=== PATIENT | female | born 1955 | race Caucasian/White ===

== ENCOUNTER 2023-05-01 11:17 | Inpatient (IN) ==
[2023-05-01 13:05] VITALS: BMI 31.4
[2023-05-01] MEDS ORDERED: REFLEX: PROVENTIL NEB & PulmiCORT NEB~ NEB SCH (14:15)
[2023-05-01] MEDS: LOVENOX INJ 80 MG SYR SC SCH (15:21)
[2023-05-01 15:57] LABS: BASOPHILS # (AUTO) 0.1 X10^3/uL (0.0-0.1); BASOPHILS % (AUTO) 0.9 % (0.2-1.0); EOSINOPHILS # (AUTO) 0.2 x10^3/uL (0.0-0.2); EOSINOPHILS % (AUTO) 1.5 % (0.9-2.9); HEMATOCRIT 34.9 % (36.0-47.0); HEMOGLOBIN 11.4 g/dL (12.0-16.0); LYMPHOCYTES # (AUTO) 1.5 X10^3/uL (1.3-2.9); LYMPHOCYTES % (AUTO) 11.2 % (21.0-51.0); MEAN CORPUSCULAR HGB CONC 32.6 g/dL (33.0-35.0); MEAN CORPUSCULAR VOLUME 95.1 fL (80.0-100.0); MEAN PLATELET VOLUME 8.1 fL (7.4-11.0); MONOCYTES # (AUTO) 0.9 x10^3/uL (0.3-0.8); MONOCYTES % (AUTO) 6.4 % (0.0-13.0); NEUTROPHILS # (AUTO) 10.8 x10^3/uL (2.2-4.8); PLATELET COUNT 243 X10^3/uL (150.0-450.0); RED BLOOD COUNT 3.67 X10^6/uL (3.5-5.4); WHITE BLOOD COUNT 13.5 X10^3/uL (3.6-10.0)
[2023-05-01 16:14] LABS: ALBUMIN 3.1 g/dL (3.4-5.0); CALCIUM 9.6 mg/dL (8.5-10.1); CARBON DIOXIDE 26.3 mmol/L (21-32); COR CA(FOR HYPOALB) 10.3 mg/dL (8.5-10.1); CREATININE 1.74 mg/dL (0.55-1.02); TOTAL PROTEIN 8.3 g/dL (6.4-8.2)
[2023-05-01 16:19] LABS: POTASSIUM 5.2 mmol/L (3.5-5.1)
[2023-05-01] MEDS: LR 1,000 ML IV 1,000 ML IV SCH (16:55)
[2023-05-01] MEDS ORDERED: NS 250 ML IV 250 ML IV ONE (17:41)
[2023-05-01] MEDS: ZOSYN VIAL 3.375 GRAMS 3.375 G in NS 100 ML IV 100 ML IV SCH (17:56)
[2023-05-01] MEDS: NS 250 ML IV 250 ML IV PRN (17:57)
[2023-05-01] MEDS: DILAUDID INJ IVP PRN (18:27)
[2023-05-01] MEDS: PROVENTIL NEB TX 0.083% 2.5MG/ 3ML NEB SCH (20:55)
[2023-05-01] MEDS: PULMICORT NEB TX 0.5 MG NEB SCH (20:55)
[2023-05-01] MEDS: EXELON PO SCH (21:16)
[2023-05-01] MEDS: TUMS PO SCH (21:16)
[2023-05-01] MEDS: CYMBALTA PO SCH (21:17)
[2023-05-01] MEDS: COLACE CAP 100 MG PO SCH (21:17)
[2023-05-01] MEDS: ROBAXIN PO SCH (21:17)
[2023-05-01] MEDS: LOPRESSOR TAB 25 MG PO SCH (21:17)
[2023-05-01] MEDS: NovoLIN R (or HumuLIN R) SC PRN (21:26)
[2023-05-02] MEDS: HIBICLENS WASH EXT ONE (00:47)
[2023-05-02] MEDS ORDERED: BUTT CREAM (COMPOUND) ONE (04:29)
[2023-05-02] MEDS: BUTT CREAM (COMPOUND) TOP PRN (05:29)
--- NOTE | 2023-05-02 06:24 | NOTE.SOAP ---
Soap Note Note for Day of Date of Exam: 05/02/23 Subjective Data Subjective Data: 67 year old female well known to our services for critical limb ischemia and history of gangrene to the right foot. Presents to the hospital with a painful 3rd digit to the left foot now that is black with redness going up her leg. Dr. Villar plans to take patient to the OR for intervention today. Patient was in and out of sleep and was not answering my questions. Objective Data Objective Data: Dry gangrene to the left 3rd digit with erythema streaking from the 3rd toe up proximally. No malodor, pus or drainage noted Foot is cold, no pulses appreciates Gross epicritc and protective sensation intact Assessment Assessment: 67 year old female with critical limb ischemia with gangrene of the left 3rd toe Plan Plan: I tried to explain plan to patient but she kept falling back asleep, will come back to try to explain to patient once again. The plan is to take patient to the operating room on monday for a toe amputation of the left third digit. If the toe appears infected, there is a chance the incision will be left opened and patient must come back to the OR later this week for a delayed primary closure. That will be an intraoperative decisions. Labs and vitals reviewed. Patient on IV antibiotics. Vascular recs per Dr. Villar appreciated. Patient will be NPO after midnight tonight for toe amputation tomorrow pending OR availabilities.
[2023-05-02] MEDS: LOVENOX INJ 30 MG SYR SC SCH (08:32)
[2023-05-02] MEDS: DETROL LA 2 MG CAP EXT REL PO SCH (09:45)
[2023-05-02] MEDS: LIPITOR TAB 40 MG PO SCH (09:45)
[2023-05-02] MEDS: ZyPREXA TAB 5 MG PO SCH (09:45)
[2023-05-02] MEDS: ASPIRIN EC 81 MG PO SCH (09:45)
[2023-05-02] MEDS: VITAMIN D3 25 mcg (1,000 UNITS) PO SCH (09:45)
[2023-05-02] MEDS: ZESTRIL TAB 5 MG PO SCH (11:29)
[2023-05-02] MEDS: NS 1,000 ML IV 1,000 ML ONE ×2 (13:36→15:17)
[2023-05-02] MEDS: ANCEF VIAL 1 GRAM ONE (13:46)
[2023-05-02] MEDS: NS 100 ML IV 100 ML ONE (13:46)
[2023-05-02] MEDS: DIPRIVAN VIAL 20 ML ONE ×2 (13:55→15:20)
[2023-05-02] MEDS: VERSED ONE (13:55)
[2023-05-02] MEDS: FENTANYL VIAL INJ 100 mcg ONE ×2 (13:55→15:07)
[2023-05-02] MEDS: VISIPAQUE 100 ML ONE (14:16)
[2023-05-02] MEDS: MARCAINE 0.5% ONE (14:16)
[2023-05-02] MEDS: VISIPAQUE 50 ML ONE (14:16)
[2023-05-02] MEDS: HEPARIN SODIUM IN D5W 75,000 UNITS/1,500 ML BAG ONE (14:16)
[2023-05-02] MEDS: HEPARIN SODIUM INJ 5000 UNITS ONE ×2 (14:21→15:22)
[2023-05-02] MEDS: EPHEDRINE SULFATE INJ ONE (14:27)
[2023-05-02 14:33] LABS: BILIRUBIN,URINE NEGATIVE (NEGATIVE); BLOOD/HEMOGLOBIN,URINE 2+ (NEGATIVE); GLUCOSE, URINE 4+ (NEGATIVE); KETONES,URINE NEGATIVE (NEGATIVE); LEUKOCYTE ESTERASE ,URINE 3+ (NEGATIVE); NITRITES,URINE NEGATIVE (NEGATIVE); PH,URINE 6.5 (5.0 - 8.0); PROTEIN,URINE 2+ (NEGATIVE); UROBILINOGEN,URINE NORMAL (NORMAL)
[2023-05-02 14:42] LABS: APPEARANCE,URINE HAZY (CLEAR); BACTERIA,URINE NEGATIVE /HPF (NEGATIVE); COLOR,URINE YELLOW (YELLOW); RBC,URINE 0-2 /HPF (0-3); SQUAMOUS EPITHELIAL CELL,UR RARE /HPF (NEGATIVE)
[2023-05-02] MEDS: TORADOL 30 MG VIAL ONE (14:45)
[2023-05-02] MEDS: NEO-SYNEPHRINE INJ ONE (14:57)
--- NOTE | 2023-05-02 16:45 | OR.IMMED ---
IMMEDIATE POST-OP NOTE Immediate Post-Op Note Date of surgery/procedure: 05/02/23 Pre-Op Diagnosis: Critical ischemia left leg with gangrene left 3rd toe and cellulitis dorsum of the left foot. Post-Op Diagnosis: same Procedure: Aortogram, arteriogram left leg , angioplasty left tibial peroneal trunk ,atherectomy and drug coated stent placement of the entire left superficial femoral artery , required distal approach from the ankle via the left posterior tibial artery Description of Procedure: see dictation Surgeon/Seismic Plotter: Jian Findings: disease distal aorta versus disease inside of aortic endograft, complete occlusion of the entire left superficial femoral artery beginning at its takeoff with reconstitution at the adductor canal, severe disease, near total occlusion of the tibial peroneal trunk, calcified runoff vessels via the left anterior tibial and left posterior tibial arteries , Estimated Blood Loss: 200cc Complications: none Progress Notes: patient returned to the floor, begin diabetic diet, continue IV antibiotics, Dr Diaz is planning amputation of the left third toe tomorrow
[2023-05-02] MEDS ORDERED: ATIVAN INJ 2 MG VIAL ONE (18:13)
[2023-05-02] MEDS: ATIVAN INJ 2 MG VIAL IVP ONE ×2 (18:16→18:20)
[2023-05-02] MEDS: VALIUM INJ ONE (19:37)
[2023-05-03] MEDS: ATIVAN INJ 2 MG VIAL IVP PRN (02:25)
[2023-05-03] MEDS: HIBICLENS WASH EXT ONE (03:06)
[2023-05-03 05:43] LABS: BASOPHILS % (AUTO) 0.6 % (0.2-1.0); EOSINOPHILS # (AUTO) 0.2 x10^3/uL (0.0-0.2); EOSINOPHILS % (AUTO) 3.4 % (0.9-2.9); HEMATOCRIT 28.3 % (36.0-47.0); HEMOGLOBIN 9.2 g/dL (12.0-16.0); LYMPHOCYTES # (AUTO) 0.9 X10^3/uL (1.3-2.9); LYMPHOCYTES % (AUTO) 13.2 % (21.0-51.0); MEAN CORPUSCULAR HEMOGLOBIN 31.1 pg (27.0-34.0); MEAN CORPUSCULAR HGB CONC 32.3 g/dL (33.0-35.0); MEAN CORPUSCULAR VOLUME 96.2 fL (80.0-100.0); MEAN PLATELET VOLUME 8.2 fL (7.4-11.0); MONOCYTES # (AUTO) 0.7 x10^3/uL (0.3-0.8); NEUTROPHILS # (AUTO) 5.2 x10^3/uL (2.2-4.8); NEUTROPHILS % (AUTO) 72.8 % (42.0-75.0); PLATELET COUNT 214 X10^3/uL (150.0-450.0); RED BLOOD COUNT 2.94 X10^6/uL (3.5-5.4); RED CELL DISTRIBUTION WIDTH 19.8 % (11.6-16.5); WHITE BLOOD COUNT 7.1 X10^3/uL (3.6-10.0)
[2023-05-03 05:48] LABS: ALBUMIN 2.5 g/dL (3.4-5.0); CALCIUM 8.4 mg/dL (8.5-10.1); CARBON DIOXIDE 25.4 mmol/L (21-32); COR CA(FOR HYPOALB) 9.6 mg/dL (8.5-10.1); CREATININE 1.95 mg/dL (0.55-1.02); POTASSIUM 4.8 mmol/L (3.5-5.1); TOTAL PROTEIN 7.3 g/dL (6.4-8.2)
[2023-05-03] MEDS: NS 100 ML IV 100 ML ONE (09:18)
[2023-05-03] MEDS: ANCEF VIAL 1 GRAM ONE (09:18)
[2023-05-03] MEDS: NS 1,000 ML IV 1,000 ML ONE (09:40)
[2023-05-03] MEDS: BETADINE SOLN ONE (09:43)
[2023-05-03] MEDS: DIPRIVAN VIAL 20 ML ONE (09:43)
[2023-05-03] MEDS: XYLOCAINE 1% and EPINEPHRINE 1:100,000 ONE (09:48)
[2023-05-03] MEDS: LOVENOX INJ 30 MG SYR SC SCH (10:03)
--- NOTE | 2023-05-04 01:36 | NOTE.SOAP ---
Soap Note Note for Day of Date of Exam: 05/03/23 Subjective Data Subjective Data: After re-vascularization of the left leg she was combative, treated with IV Ativan. For amputation of left 3rd toe today carried out by Dr. Diaz Objective Data Temperature: 98.0 F Pulse Rate: 81 Respiratory Rate: 22 Blood Pressure: 125/58 O2 Sat by Pulse Oximetry: 98 Objective Data: Left foot warm, no rest pain. Needle stick let ankle and right groin without bleeding Assessment Assessment: Critical mischemia left leg and gangrene left 3rd toe. Plan Plan: Continue Lovenox . Will plan discharge to SNF tomorrow and will transition to PO Xarelto and aspirin.
--- NOTE | 2023-05-04 06:16 | NOTE.SOAP ---
Soap Note Note for Day of Date of Exam: 05/04/23 Subjective Data Subjective Data: Patient resting comfortably this morning, s/p L 3rd digit amputation. She was combative yesterday, did not want to disturb. Objective Data Objective Data: Dressings c/d/i without strikethrough Assessment Assessment: 67 F who had gangrene of the left third toe, underwent an amputation of the toe (DOS: 05/04/23) Plan Plan: Patient resting this am, okay for WBAT in a surgical shoe. Do not remove d ressings. She is okay for discharge from a podiatry standpoint. On IV abx and will be discharged with Doxy 100. She is to follow up with Dr. Diaz in his office within one week of discharge or sooner if any problems arise
--- NOTE | 2023-05-04 07:42 | DR.H&P ---
H&P History & Physical for Day of: H&P Date: 05/02/23 Chief Complaint Chief Complaint: Rest pain left foot and gangrene of the left 3rd toe Allergies Allergies Allergy/AdvReac Type Severity Reaction Status Date / Time No Known Allergies Allergy Verified 04/10/23 15:43 History of Present Illness History of Present Illness: This patient is a 67 year old female, currently [facility] who presented several weeks ago with a gangrenous right second toe. She was admitted and placed on IV antibiotics and a Heparin drip. CT angiogram was not obtained because of her increase in her creatinine .She was taken to the operating suite where an on table arteriogram was carried out and she underwent atherectomy and Drug coated balloon angiopla sty of the right superficial femoral artery and popliteal artery .She subsequently had amputation of the right second toe and did well .She presented to my office on April 30 with gangrenous changes of the left third toe. She will require admission and intervention of this leg as well and amputation of the left third toe after the arterial intervention . 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, mild ), Depression and Diabetes Past Surgical History Surgical History: Abdominal Surgery and Cholecystectomy Family History Family Medical History: Diabetes Mellitus Social History Does patient currently use any type of tobacco product: No Have you used tobacco products in the last 12 months: No Type of Tobacco Use: None Does any household member use tobacco: No Alcohol Use: None Drug Use: None Medications Home Medications: Home Medications Medication Instructions Recorded Confirmed Type aspirin 81 mg chewable tablet 81 mg PO QDAY 04/10/23 05/01/23 History atorvastatin 40 mg tablet 40 mg PO HS 04/10/23 05/01/23 History calcium carbonate 600 mg calcium 600 mg PO BID 04/10/23 05/01/23 History (1,500 mg) tablet clopidogrel 75 mg tablet 75 mg PO QDAY 04/10/23 05/01/23 History diphenhydramine HCl 25 mg capsule 25 mg PO TID PRN 04/10/23 05/01/23 History docusate sodium 100 mg capsule 100 mg PO BID 04/10/23 05/01/23 History (Colace) duloxetine 30 mg capsule,delayed 30 mg PO BID 04/10/23 05/01/23 History release empagliflozin 25 mg tablet 25 mg PO QDAY 04/10/23 05/01/23 History (Jardiance) fluticasone 250 mcg-salmeterol 50 1 inh inhalation BID 04/10/23 05/01/23 History mcg/dose blistr powdr for inhalation (Advair Diskus) gabapentin 800 mg tablet 800 mg PO TID 04/10/23 05/01/23 History insulin glargine 100 unit/mL (3 20 unit subcut QHS 04/10/23 05/01/23 History mL) subcutaneous pen (Lantus Solostar U-100 Insulin) insulin glargine 100 unit/mL 10 unit subcut QAM 04/10/23 05/01/23 History subcutaneous cartridge lisinopril 2.5 mg tablet 2.5 mg PO QDAY 04/10/23 05/01/23 History melatonin 5 mg tablet 10 mg PO HS 04/10/23 05/01/23 History methocarbamol 500 mg tablet 500 mg PO HS 04/10/23 05/01/23 History metoprolol tartrate 25 mg tablet 12.5 mg PO BID 04/10/23 05/01/23 History mirabegron 50 mg tablet,extended 50 mg PO QDAY 04/10/23 05/01/23 History release 24 hr (Myrbetriq) oxycodone-acetaminophen 5 mg-325 1 tab PO Q6H PRN 04/10/23 05/01/23 History mg tablet polyethylene glycol 3350 17 gram 17 g PO DAILY 04/10/23 05/01/23 History oral powder packet rivastigmine tartrate 4.5 mg 4.5 mg PO BID 04/10/23 05/01/23 History capsule solifenacin 10 mg tablet 10 mg PO QHS 04/10/23 05/01/23 History insulin lispro 100 unit/mL 1 sliding scale dose subcut 04/11/23 05/01/23 History subcutaneous solution USEASDIRECTD cholecalciferol (vitamin D3) 125 125 mcg PO QDAY 05/01/23 05/01/23 History mcg (5,000 unit) tablet (Vitamin D3) menthol 4 % topical gel (Biofreeze 1 applic topical DAILY PRN 05/01/23 05/01/23 History (menthol)) olanzapine 5 mg tablet 5 mg PO HS 05/01/23 05/01/23 History Labs 05/03/23 05:10 05/03/23 05:10 Labs: 05/03/23 09:51 Toe - Left Third Wound Gram Stain - Final 05/02/23 14:08 Urine,Catheterized Urine Culture - Preliminary Laboratory WBC 7.1 X10^3/uL (3.6-10.0) 05/03/23 05:10 RBC 2.94 X10^6/uL (3.5-5.4) L 05/03/23 05:10 Hgb 9.2 g/dL (12.0-16.0) L D 05/03/23 05:10 Hct 28.3 % (36.0-47.0) L 05/03/23 05:10 MCV 96.2 fL (80.0-100.0) 05/03/23 05:10 MCH 31.1 pg (27.0-34.0) 05/03/23 05:10 MCHC 32.3 g/dL (33.0-35.0) L 05/03/23 05:10 RDW 19.8 % (11.6-16.5) H 05/03/23 05:10 Plt Count 214 X10^3/uL (150.0-450.0) 05/03/23 05:10 MPV 8.2 fL (7.4-11.0) 05/03/23 05:10 Neut % (Auto) 72.8 % (42.0-75.0) 05/03/23 05:10 Lymph % (Auto) 13.2 % (21.0-51.0) L 05/03/23 05:10 Levy % (Auto) 10.0 % (0.0-13.0) 05/03/23 05:10 Eos % (Auto) 3.4 % (0.9-2.9) H 05/03/23 05:10 Baso % (Auto) 0.6 % (0.2-1.0) 05/03/23 05:10 Neut # (Auto) 5.2 x10^3/uL (2.2-4.8) H 05/03/23 05:10 Lymph # (Auto) 0.9 X10^3/uL (1.3-2.9) L 05/03/23 05:10 Levy # (Auto) 0.7 x10^3/uL (0.3-0.8) 05/03/23 05:10 Eos # (Auto) 0.2 x10^3/uL (0.0-0.2) 05/03/23 05:10 Baso # (Auto) 0.0 X10^3/uL (0.0-0.1) 05/03/23 05:10 Absolute Nucleated RBC 0.1 /100WBC 05/03/23 05:10 Sodium 143 mmol/L (136-145) 05/03/23 05:10 Corrected Sodium 144 mmol/L (136-145) 05/03/23 05:10 Potassium 4.8 mmol/L (3.5-5.1) 05/03/23 05:10 Chloride 109 mmol/L (98-107) H 05/03/23 05:10 Carbon Dioxide 25.4 mmol/L (21-32) 05/03/23 05:10 BUN 33 mg/dL (7-18) H 05/03/23 05:10 Creatinine 1.95 mg/dL (0.55-1.02) H 05/03/23 05:10 Est GFR (MDRD) Af Amer 33 (>60) L 05/03/23 05:10 Est GFR (MDRD) Non-Af 27 (>60) L 05/03/23 05:10 Glucose 146 mg/dL (65-99) H 05/03/23 05:10 POC Glucose (mg/dL) 196 mg/dL (65-99) H 05/03/23 22:09 Calcium 8.4 mg/dL (8.5-10.1) L 05/03/23 05:10 Corrected Calcium 9.6 mg/dL (8.5-10.1) 05/03/23 05:10 Total Bilirubin 0.40 mg/dL (0.2-1.0) 05/03/23 05:10 AST 33 Units/L (15-37) 05/03/23 05:10 ALT 18 Units/L (12-78) 05/03/23 05:10 Alkaline Phosphatase 105 Units/L (46-116) 05/03/23 05:10 Total Protein 7.3 g/dL (6.4-8.2) 05/03/23 05:10 Albumin 2.5 g/dL (3.4-5.0) L 05/03/23 05:10 Globulin 4.8 g/dL (2.5-4.5) H 05/03/23 05:10 Albumin/Globulin Ratio 0.5 Ratio (1.1-2.1) L 05/03/23 05:10 Specimen Type Catherized urine 05/02/23 14:08 Urine Color Yellow (YELLOW) 05/02/23 14:08 Urine Appearance Hazy (CLEAR) 05/02/23 14:08 Urine pH 6.5 (5.0 - 8.0) 05/02/23 14:08 Ur Specific [place] 1.015 (1.000-1.030) 05/02/23 14:08 Urine Protein 2+ (NEGATIVE) 05/02/23 14:08 Urine Glucose (UA) 4+ (NEGATIVE) 05/02/23 14:08 Urine Ketones Negative (NEGATIVE) 05/02/23 14:08 Urine Blood 2+ (NEGATIVE) 05/02/23 14:08 Urine Nitrite Negative (NEGATIVE) 05/02/23 14:08 Urine Bilirubin Negative (NEGATIVE) 05/02/23 14:08 Urine Urobilinogen Normal (NORMAL) 05/02/23 14:08 Ur Leukocyte Esterase 3+ (NEGATIVE) 05/02/23 14:08 Urine RBC 0-2 /HPF (0-3) 05/02/23 14:08 Urine WBC Tntc /HPF (0-5) A 05/02/23 14:08 Ur Squamous Epith Cells Rare /HPF (NEGATIVE) 05/02/23 14:08 Urine Bacteria Negative /HPF (NEGATIVE) 05/02/23 14:08 Ur Culture Indicated? Yes/culture set up 05/02/23 14:08 Review of Systems Constitutional: See HPI Eyes: No Symptoms Reported ENT: No Symptoms Reported Respiratory: No Symptoms Reported Cardiovascular: No Symptoms Reported Gastrointestinal: No Symptoms Reported Genitourinary: No Symptoms Reported Musculoskeletal: See HPI Skin: See HPI Physical Exam Vital Signs: Vital Signs Temperature 98.0 F Temperature 98.2 F Temperature 98.7 F Pulse Rate [Radial] 82 Pulse Rate [Radial] 105 Pulse Rate 81 Pulse Rate 87 Respiratory Rate 22 Respiratory Rate 18 Respiratory Rate 22 Respiratory Rate 22 Respiratory Rate 22 Blood Pressure [Left Arm] 112/62 Blood Pressure [Left Arm] 172/75 Blood Pressure 125/58 O2 Sat by Pulse Oximetry 98 O2 Sat by Pulse Oximetry 100 O2 Sat by Pulse Oximetry 97 O2 Sat by Pulse Oximetry 96 Oriented: Normal, Time, Person, Place and Other (She is anxious) Eyes: Normal Ear: Normal Nose: Normal Throat: Normal Respiratory: Clear Throughout Cardiovascular: Normal and Other (Right leg with palpable distal pulses and healed right second toe Ray amputation site , palpable left femoral pulse, no distal pulses palpable, gangrene of the left third toe ) : Normal Auscultation: Bowel Sounds: Normal Palpation: Normal Tenderness: Normal Skin: Normal Musculoskeletal: Normal Psychiatric: Normal Mood Description: Fearful and Anxious Affect: Anxious Speech Pattern: Clear Assessment/Plan (1) Atherosclerosis of [place] arteries of extremities with rest pain, left leg: Status: Acute Plan: patient will be admitted and placed on therapeutic Lovenox. Will plan on table arteriogram and appropriate arterial intervention of the left leg , Will l consult Dr elizalde for amputation of the left third toe . (2) Chronic ischemic heart disease, unspecified: Status: Acute Plan: home meds (3) Essential (primary) hypertension: Status: Acute Plan: home meds (4) Type 2 diabetes mellitus without complications: Status: Acute Plan: sliding scale insulin (5) Depression: Status: Acute (6) Gangrene of toe of left foot: Status: Acute Plan: Home Meds
[2023-05-04 08:01] LABS: CALCIUM 8.7 mg/dL (8.5-10.1); CARBON DIOXIDE 25.2 mmol/L (21-32); CREATININE 1.53 mg/dL (0.55-1.02); POTASSIUM 4.4 mmol/L (3.5-5.1)
[2023-05-04 08:38] VITALS: RESP 18; TEMP 97.6
--- NOTE | 2023-05-04 11:06 | W.DIS.FURT ---
Summary of Discharge Discharge Summary of Date Date of Exam: 05/04/23 Admission Date Date of Admission: 05/01/23 Admission Diagnosis Hospital Course: This is a 67 year old female who was admitted on April 30 .Past history of diabetes, coronary arterial disease and old cerebral vascular accident who presented several weeks ago with an ischemic right foot and gangrenous right second toe .She e underwent atherectomy and drug coated balloon angioplasty of the right distal superficial femoral artery and the right popliteal artery . Subsequent amputation of the the right second toe by . This had done well. She presented to my office on April 30 with gangrenous change of the left third toe .She was admitted ,placed on IV antibiotics, therapeutic Lovenox and underwent atherectomy and drug coated stenting of a completely occluded left superficial femoral artery and angioplasty of the left tibial peroneal trunk. CTA was not performed due to her increased creatinine. We used on table arteriogram to limit the dye load. She became confused . On 05/02 she underwent amputation of the left third toe .She is a resident of a skilled nurse facility and does have significant problems with dementia. She will be discharged back to the [facility] came from .She will continue on her usual medications with the addition of aspirin 81 milligrams daily and Xarelto , 2..5 milligrams p o BID. She will also be given a prescription for Percocet, 5 milligram tablets, 136 hours per and pain. If you will see me in the office in 1 to 2 weeks. She will also be given a follow-up to Dr. Diaz as per their office. Dr. Diaz will have her on Doxycycline 100 milligrams BID. Vital Signs: Vital Signs (72 hours) 05/04/23 01:33 05/01/23 12:25 05/01/23 12:10 Temperature 98.0 F Pulse Rate 81 Pulse Rate [Radial] Respiratory Rate 22 Blood Pressure 125/58 Blood Pressure [Left Arm] Blood Pressure [Right Radial Artery] O2 Sat by Pulse Oximetry 98 Oxygen Delivery Method Room Air Nasal Cannula Oxygen Flow Rate 2.5 2 FIO2% 30 05/01/23 18:27 05/01/23 12:15 05/01/23 16:00 Temperature 97.8 F Pulse Rate Pulse Rate [Radial] 70 Respiratory Rate 20 20 Blood Pressure Blood Pressure [Left Arm] 140/63 Blood Pressure [Right Radial Artery] O2 Sat by Pulse Oximetry 100 Oxygen Delivery Method Nasal Cannula Nasal Cannula Oxygen Flow Rate 2 2.5 FIO2% 05/01/23 18:57 05/01/23 20:00 05/01/23 20:55 Temperature 98.9 F Pulse Rate Pulse Rate [Radial] 81 Respiratory Rate 18 20 Blood Pressure Blood Pressure [Left Arm] 134/73 Blood Pressure [Right Radial Artery] O2 Sat by Pulse Oximetry 93 L Oxygen Delivery Method Nasal Cannula Nasal Cannula Oxygen Flow Rate 2.5 2.5 FIO2% 30 05/01/23 20:55 05/01/23 19:00 05/01/23 23:55 Temperature 98.2 F Pulse Rate 102 H Pulse Rate [Radial] 72 Respiratory Rate 18 Blood Pressure Blood Pressure [Left Arm] 124/58 Blood Pressure [Right Radial Artery] O2 Sat by Pulse Oximetry 97 94 L Oxygen Delivery Method Nasal Cannula Nasal Cannula Oxygen Flow Rate 2 2.5 FIO2% 28 05/02/23 03:14 05/02/23 05:15 05/02/23 09:04 Temperature 97.9 F Pulse Rate 41 L Pulse Rate [Radial] 74 Respiratory Rate 20 Blood Pressure Blood Pressure [Left Arm] 123/53 Blood Pressure [Right Radial Artery] O2 Sat by Pulse Oximetry 96 98 Oxygen Delivery Method Nasal Cannula Nasal Cannula Oxygen Flow Rate 2.5 2 FIO2% 05/02/23 09:04 05/02/23 11:30 05/02/23 08:00 Temperature 97.0 F L Pulse Rate 67 Pulse Rate [Radial] 59 L Respiratory Rate 20 17 Blood Pressure Blood Pressure [Left Arm] 111/53 Blood Pressure [Right Radial Artery] O2 Sat by Pulse Oximetry 99 99 Oxygen Delivery Method Nasal Cannula Oxygen Flow Rate 2.5 FIO2% 05/02/23 07:00 05/02/23 11:59 05/02/23 12:00 Temperature 98.1 F Pulse Rate Pulse Rate [Radial] 65 Respiratory Rate 18 18 Blood Pressure Blood Pressure [Left Arm] 134/64 Blood Pressure [Right Radial Artery] O2 Sat by Pulse Oximetry 98 Oxygen Delivery Method Nasal Cannula Nasal Cannula Oxygen Flow Rate 2 2.5 FIO2% 28 05/02/23 14:45 05/02/23 17:58 05/02/23 16:15 Temperature 98.7 F Pulse Rate Pulse Rate [Radial] 66 Respiratory Rate 14 20 18 Blood Pressure Blood Pressure [Left Arm] Blood Pressure [Right Radial Artery] 87/52 O2 Sat by Pulse Oximetry Oxygen Delivery Method Oxygen Flow Rate FIO2% 05/02/23 16:30 05/02/23 16:45 05/02/23 17:00 Temperature 98.3 F 98.4 F 98.5 F Pulse Rate Pulse Rate [Radial] 67 68 64 Respiratory Rate 18 18 18 Blood Pressure Blood Pressure [Left Arm] Blood Pressure [Right Radial Artery] 95/50 128/60 101/59 O2 Sat by Pulse Oximetry 98 Oxygen Delivery Method Oxygen Flow Rate FIO2% 05/02/23 20:21 05/02/23 20:22 05/02/23 20:23 Temperature 98.5 F 98.5 F 98.3 F Pulse Rate Pulse Rate [Radial] 63 89 90 Respiratory Rate 18 20 18 Blood Pressure Blood Pressure [Left Arm] 134/61 117/78 117/75 Blood Pressure [Right Radial Artery] O2 Sat by Pulse Oximetry 99 98 99 Oxygen Delivery Method Oxygen Flow Rate FIO2% 05/02/23 20:23 05/02/23 20:10 05/02/23 20:10 Temperature 98.3 F Pulse Rate 69 Pulse Rate [Radial] 69 Respiratory Rate 20 Blood Pressure Blood Pressure [Left Arm] 113/81 Blood Pressure [Right Radial Artery] O2 Sat by Pulse Oximetry 99 96 Oxygen Delivery Method Nasal Cannula Oxygen Flow Rate 2.5 FIO2% 30 05/02/23 22:37 05/02/23 19:00 05/02/23 20:00 Temperature 98.3 F Pulse Rate Pulse Rate [Radial] 69 Respiratory Rate 20 20 Blood Pressure Blood Pressure [Left Arm] 113/81 Blood Pressure [Right Radial Artery] O2 Sat by Pulse Oximetry 99 Oxygen Delivery Method Nasal Cannula Nasal Cannula Oxygen Flow Rate 2 2.5 FIO2% 28 05/02/23 21:20 05/02/23 23:07 05/03/23 00:00 Temperature 98.7 F 98.0 F Pulse Rate Pulse Rate [Radial] 76 69 Respiratory Rate 18 20 20 Blood Pressure Blood Pressure [Left Arm] 131/65 90/53 Blood Pressure [Right Radial Artery] O2 Sat by Pulse Oximetry 98 94 L Oxygen Delivery Method Nasal Cannula Oxygen Flow Rate 2.5 FIO2% 05/03/23 04:00 05/03/23 08:58 05/03/23 08:58 Temperature 98.0 F Pulse Rate 86 Pulse Rate [Radial] 92 H Respiratory Rate 20 Blood Pressure Blood Pressure [Left Arm] 124/57 Blood Pressure [Right Radial Artery] O2 Sat by Pulse Oximetry 95 95 Oxygen Delivery Method Nasal Cannula Nasal Cannula Oxygen Flow Rate 2.5 2 FIO2% 28 05/03/23 08:00 05/03/23 07:00 05/03/23 11:32 Temperature 98.0 F Pulse Rate Pulse Rate [Radial] 81 Respiratory Rate 22 20 Blood Pressure Blood Pressure [Left Arm] 125/58 Blood Pressure [Right Radial Artery] O2 Sat by Pulse Oximetry 98 Oxygen Delivery Method Nasal Cannula Nasal Cannula Oxygen Flow Rate 2 2 FIO2% 28 05/03/23 12:02 05/03/23 13:29 05/03/23 16:12 Temperature Pulse Rate 85 Pulse Rate [Radial] Respiratory Rate 20 22 Blood Pressure Blood Pressure [Left Arm] Blood Pressure [Right Radial Artery] O2 Sat by Pulse Oximetry 97 Oxygen Delivery Method Oxygen Flow Rate FIO2% 05/03/23 12:00 05/03/23 16:00 05/03/23 16:42 Temperature 97.9 F 99.3 F Pulse Rate Pulse Rate [Radial] 86 86 Respiratory Rate 16 22 22 Blood Pressure Blood Pressure [Left Arm] 101/55 127/72 Blood Pressure [Right Radial Artery] O2 Sat by Pulse Oximetry 99 96 Oxygen Delivery Method Nasal Cannula Nasal Cannula Oxygen Flow Rate 2 2 FIO2% 05/03/23 10:10 05/03/23 10:25 05/03/23 10:40 Temperature 97.6 F 97.3 F L 97.6 F Pulse Rate Pulse Rate [Radial] 86 84 84 Respiratory Rate 20 18 18 Blood Pressure Blood Pressure [Left Arm] 147/64 166/66 164/74 Blood Pressure [Right Radial Artery] O2 Sat by Pulse Oximetry 98 99 98 Oxygen Delivery Method Oxygen Flow Rate FIO2% 05/03/23 10:55 05/03/23 11:10 05/03/23 12:10 Temperature 97.1 F L 97.9 F 97.9 F Pulse Rate Pulse Rate [Radial] 88 92 H 86 Respiratory Rate 22 20 16 Blood Pressure Blood Pressure [Left Arm] 154/66 193/75 101/55 Blood Pressure [Right Radial Artery] O2 Sat by Pulse Oximetry 97 98 99 Oxygen Delivery Method Oxygen Flow Rate FIO2% 05/03/23 13:10 05/03/23 14:10 05/03/23 15:10 Temperature 97.4 F L 97.9 F 99.9 F H Pulse Rate Pulse Rate [Radial] 91 H 111 H 103 H Respiratory Rate 16 22 20 Blood Pressure Blood Pressure [Left Arm] 162/67 172/70 127/72 Blood Pressure [Right Radial Artery] O2 Sat by Pulse Oximetry 99 94 L 97 Oxygen Delivery Method Oxygen Flow Rate FIO2% 05/03/23 20:14 05/03/23 20:15 05/03/23 19:00 Temperature Pulse Rate 87 Pulse Rate [Radial] Respiratory Rate Blood Pressure Blood Pressure [Left Arm] Blood Pressure [Right Radial Artery] O2 Sat by Pulse Oximetry 97 Oxygen Delivery Method Nasal Cannula Nasal Cannula Oxygen Flow Rate 2 2 FIO2% 28 28 05/03/23 20:00 05/03/23 23:18 05/04/23 00:00 Temperature 98.7 F 98.2 F Pulse Rate Pulse Rate [Radial] 105 H 82 Respiratory Rate 22 22 18 Blood Pressure Blood Pressure [Left Arm] 172/75 112/62 Blood Pressure [Right Radial Artery] O2 Sat by Pulse Oximetry 96 100 Oxygen Delivery Method Oxygen Flow Rate FIO2% 05/03/23 23:48 05/04/23 03:09 05/04/23 03:39 Temperature Pulse Rate Pulse Rate [Radial] Respiratory Rate 22 22 22 Blood Pressure Blood Pressure [Left Arm] Blood Pressure [Right Radial Artery] O2 Sat by Pulse Oximetry Oxygen Delivery Method Oxygen Flow Rate FIO2% 05/04/23 04:00 05/04/23 06:06 05/04/23 07:17 Temperature 98.6 F Pulse Rate 80 Pulse Rate [Radial] 76 Respiratory Rate 21 20 Blood Pressure Blood Pressure [Left Arm] 110/67 Blood Pressure [Right Radial Artery] O2 Sat by Pulse Oximetry 99 98 Oxygen Delivery Method Nasal Cannula Oxygen Flow Rate 2 FIO2% 05/04/23 08:00 05/04/23 08:38 05/04/23 08:38 Temperature 97.6 F Pulse Rate 74 Pulse Rate [Radial] 73 Respiratory Rate 18 Blood Pressure Blood Pressure [Left Arm] 118/58 Blood Pressure [Right Radial Artery] O2 Sat by Pulse Oximetry 100 100 Oxygen Delivery Method Nasal Cannula Nasal Cannula Oxygen Flow Rate 2 2 FIO2% 28 05/04/23 07:47 05/04/23 07:00 Temperature Pulse Rate Pulse Rate [Radial] Respiratory Rate 20 Blood Pressure Blood Pressure [Left Arm] Blood Pressure [Right Radial Artery] O2 Sat by Pulse Oximetry Oxygen Delivery Method Nasal Cannula Oxygen Flow Rate 2 FIO2% 28 Labs: Laboratory Last Values WBC 7.1 X10^3/uL (3.6-10.0) 05/03/23 05:10 RBC 2.94 X10^6/uL (3.5-5.4) L 05/03/23 05:10 Hgb 9.2 g/dL (12.0-16.0) L D 05/03/23 05:10 Hct 28.3 % (36.0-47.0) L 05/03/23 05:10 MCV 96.2 fL (80.0-100.0) 05/03/23 05:10 MCH 31.1 pg (27.0-34.0) 05/03/23 05:10 MCHC 32.3 g/dL (33.0-35.0) L 05/03/23 05:10 RDW 19.8 % (11.6-16.5) H 05/03/23 05:10 Plt Count 214 X10^3/uL (150.0-450.0) 05/03/23 05:10 MPV 8.2 fL (7.4-11.0) 05/03/23 05:10 Neut % (Auto) 72.8 % (42.0-75.0) 05/03/23 05:10 Lymph % (Auto) 13.2 % (21.0-51.0) L 05/03/23 05:10 [place] % (Auto) 10.0 % (0.0-13.0) 05/03/23 05:10 Eos % (Auto) 3.4 % (0.9-2.9) H 05/03/23 05:10 Baso % (Auto) 0.6 % (0.2-1.0) 05/03/23 05:10 Neut # (Auto) 5.2 x10^3/uL (2.2-4.8) H 05/03/23 05:10 Lymph # (Auto) 0.9 X10^3/uL (1.3-2.9) L 05/03/23 05:10 [place] # (Auto) 0.7 x10^3/uL (0.3-0.8) 05/03/23 05:10 Eos # (Auto) 0.2 x10^3/uL (0.0-0.2) 05/03/23 05:10 Baso # (Auto) 0.0 X10^3/uL (0.0-0.1) 05/03/23 05:10 Absolute Nucleated RBC 0.1 /100WBC 05/03/23 05:10 Sodium 144 mmol/L (136-145) 05/04/23 07:45 Corrected Sodium 145 mmol/L (136-145) 05/04/23 07:45 Potassium 4.4 mmol/L (3.5-5.1) 05/04/23 07:45 Chloride 110 mmol/L (98-107) H 05/04/23 07:45 Carbon Dioxide 25.2 mmol/L (21-32) 05/04/23 07:45 BUN 22 mg/dL (7-18) H 05/04/23 07:45 Creatinine 1.53 mg/dL (0.55-1.02) H 05/04/23 07:45 Est GFR (MDRD) Af Amer 44 (>60) L 05/04/23 07:45 Est GFR (MDRD) Non-Af 36 (>60) L 05/04/23 07:45 Glucose 156 mg/dL (65-99) H 05/04/23 07:45 POC Glucose (mg/dL) 154 mg/dL (65-99) H 05/04/23 05:34 Calcium 8.7 mg/dL (8.5-10.1) 05/04/23 07:45 Corrected Calcium 9.6 mg/dL (8.5-10.1) 05/03/23 05:10 Total Bilirubin 0.40 mg/dL (0.2-1.0) 05/03/23 05:10 AST 33 Units/L (15-37) 05/03/23 05:10 ALT 18 Units/L (12-78) 05/03/23 05:10 Alkaline Phosphatase 105 Units/L (46-116) 05/03/23 05:10 Total Protein 7.3 g/dL (6.4-8.2) 05/03/23 05:10 Albumin 2.5 g/dL (3.4-5.0) L 05/03/23 05:10 Globulin 4.8 g/dL (2.5-4.5) H 05/03/23 05:10 Albumin/Globulin Ratio 0.5 Ratio (1.1-2.1) L 05/03/23 05:10 Specimen Type Catherized urine 05/02/23 14:08 Urine Color Yellow (YELLOW) 05/02/23 14:08 Urine Appearance Hazy (CLEAR) 05/02/23 14:08 Urine pH 6.5 (5.0 - 8.0) 05/02/23 14:08 Ur Specific [place] 1.015 (1.000-1.030) 05/02/23 14:08 Urine Protein 2+ (NEGATIVE) 05/02/23 14:08 Urine Glucose (UA) 4+ (NEGATIVE) 05/02/23 14:08 Urine Ketones Negative (NEGATIVE) 05/02/23 14:08 Urine Blood 2+ (NEGATIVE) 05/02/23 14:08 Urine Nitrite Negative (NEGATIVE) 05/02/23 14:08 Urine Bilirubin Negative (NEGATIVE) 05/02/23 14:08 Urine Urobilinogen Normal (NORMAL) 05/02/23 14:08 Ur Leukocyte Esterase 3+ (NEGATIVE) 05/02/23 14:08 Urine RBC 0-2 /HPF (0-3) 05/02/23 14:08 Urine WBC Tntc /HPF (0-5) A 05/02/23 14:08 Ur Squamous Epith Cells Rare /HPF (NEGATIVE) 05/02/23 14:08 Urine Bacteria Negative /HPF (NEGATIVE) 05/02/23 14:08 Ur Culture Indicated? Yes/culture set up 05/02/23 14:08 Reason For Visit: GANGE GREEN TO LEFT TOE, CELLULITIS Discharge Date Discharge Date: 05/04/23 Discharge Diagnosis All Active Problems (Updated 05/04/23 @ 07:41 by Valentin Villar) Gangrene of toe of left foot (Acute) Atherosclerosis of [place]in[place] arteries of extremities with rest pain, right leg (Acute) Atherosclerosis of rin[place] arteries of extremities with rest pain, left leg (Acute) Personal history of cerebrovascular accident with current residual effects (Acute) Chronic ischemic heart disease, unspecified (Acute) Essential (primary) hypertension (Acute) Osteomyelitis of second toe of right foot (Acute) Type 2 diabetes mellitus without complications (Acute) Depression (Acute) Plan of Treatment: Continue with present treatment and follow up plan. Pt is to keep follow up appointment as instructed and take medications as ordered. Discharge Medications Discharge Medications: No Known Allergies Allergy (Verified 04/10/23 15:43) CONTINUE taking the following medications cholecalciferol (vitamin D3) 125 mcg (5,000 unit) tablet (Vitamin D3) 125 mcg PO QDAY 05/01/23 [History] menthol 4 % topical gel (Biofreeze (menthol)) 1 applic topical DAILY PRN 05/01/23 [History] olanzapine 5 mg tablet 5 mg PO HS 05/01/23 [History] New Prescriptions doxycycline hyclate 100 mg capsule 100 mg PO QDAY #14 caps 05/03/23 [Rx] aspirin 81 milligrams daily Xarelto, 2.5 mg po BID Discharge Plan Discharge Plan Hospital Course: This is a 67 year old female who was admitted on April 30 .Past history of diabetes, coronary arterial disease and old cerebral vascular accident who presented several weeks ago with an ischemic right foot and gangrenous right second toe .She e underwent atherectomy and drug coated balloon angioplasty of the right distal superficial femoral artery and the right popliteal artery . Subsequent amputation of the the right second toe by . This had done well. She presented to my office on April 30 with gangrenous change of the left third toe .She was admitted ,placed on IV antibiotics, therapeutic Lovenox and underwent atherectomy and drug coated stenting of a completely occluded left superficial femoral artery and angioplasty of the left tibial peroneal trunk. CTA was not performed due to her increased creatinine. We used on table arteriogram to limit the dye load. She became confused . On 05/02 she underwent amputation of the left third toe .She is a resident of a skilled nurse facility and does have significant problems with dementia. She will be discharged back to the [facility] came from .She will continue on her usual medications with the addition of aspirin 81 milligrams daily and Xarelto , 2..5 milligrams p o BID. She will also be given a prescription for Percocet, 5 milligram tablets, 136 hours per and pain. If you will see me in the office in 1 to 2 weeks. She will also be given a follow-up to Dr. Diaz as per their office. Dr. Diaz will have her on Doxycycline 100 milligrams BID. Patient Disposition: SNF Condition: Stable Health Concerns: Post Hospitalization: new medications and changes needed to prevent readmission or further decline. Pt educated and given instructions on all concerns. Care Plan Goals: Problem: Pain/Alteration in Comfort Goal: Improve/ Resolve Pain; Achieve Pain Tolerance Instructions: Take pain medications as prescribed. Contact your primary care provider if your pain is unrelieved or worsens. Follow up with primary care provider as directed. Plan of Treatment: Continue with present treatment and follow up plan. Pt is to keep follow up a ppointment as instructed and take medications as ordered. Prescription drug monitoring program results: PDMP was not reviewed Prescriptions: New doxycycline hyclate 100 mg capsule 100 mg PO QDAY MDD 100mg Qty: 14 0RF Rx Instructions: Take 1 tab daily No Action atorvastatin 40 mg tablet 40 mg PO HS methocarbamol 500 mg tablet 500 mg PO HS clopidogrel 75 mg tablet 75 mg PO QDAY gabapentin 800 mg tablet 800 mg PO TID rivastigmine tartrate 4.5 mg capsule 4.5 mg PO BID lisinopril 2.5 mg tablet 2.5 mg PO QDAY metoprolol tartrate 25 mg tablet 12.5 mg PO BID duloxetine 30 mg capsule,delayed release(DR/EC) 30 mg PO BID Myrbetriq 50 mg tablet extended release 24 hr 50 mg PO QDAY Jardiance 25 mg tablet 25 mg PO QDAY fluticasone propion-salmeterol [Advair Diskus] 250-50 mcg/dose Blister With Device 1 inh INHALATION BID aspirin 81 mg Tablet,Chewable 81 mg PO QDAY docusate sodium [Colace] 100 mg Capsule 100 mg PO BID diphenhydramine HCl 25 mg Capsule 25 mg PO TID PRN oxycodone-acetaminophen 5-325 mg Tablet 1 tab PO Q6H PRN polyethylene glycol 3350 17 gram Powder In Packet 17 g PO DAILY solifenacin 10 mg Tablet 10 mg PO QHS calcium carbonate 600 mg calcium (1,500 mg) Tablet 600 mg PO BID melatonin 5 mg Tablet 10 mg PO HS Lantus U-100 Insulin 100 unit/mL Cartridge 10 unit SUBCUT QAM insulin glargine [Lantus Solostar U-100 Insulin] 100 unit/mL (3 mL) Insulin Pen 20 unit SUBCUT QHS insulin lispro 100 unit/mL Solution 1 sliding scale dose SUBCUT USEASDIRECTD Rx Instructions: per sliding scale Xarelto 2.5 mg tablet 2.5 mg PO BID Qty: 180 0RF olanzapine 5 mg tablet 5 mg PO HS cholecalciferol (vitamin D3) [Vitamin D3] 125 mcg (5,000 unit) Tablet 125 mcg PO QDAY Biofreeze (menthol) 4 % Gel 1 applic TOPICAL DAILY PRN Orders to Discharge Patient Discharge Orders: Discharge (Routine); Ordered 05/04/23 Ordered By: Valentin Villar Follow ups/Referrals Follow ups/Referrals: Bossman Diaz [CONSULTING PHYSICIAN] - 05/11/23 1:45 pm Valentin Villar [Primary Care Provider] - 05/15/23 2:45 pm Instructions Instructions: Living With an Amputation, Phantom Limb Pain, Gangrene, Endovascular Therapy for Peripheral Vascular Disease, Care After, Traumatic Toe Amputation, Diabetic Neuropathy, Preventing Diabetes Mellitus Complications Stand Alone Forms: Excuse From Work or School, Post Hospital Follow Up Care
[2023-05-04 12:16] VITALS: BP 147/80; PULSE 85; O2SAT 94
== END 2023-05-04 12:20 | DRG 271 ==
LOC: MED/SURG 11:50
PROVIDERS: ADMIT Surgery; ATTEND Surgery
DX: R41.82 Altered mental status, unspecified; L03.116 Cellulitis of left lower limb; F03.911 Unspecified dementia, unspecified severity, with agitation; I70.222 Atherosclerosis of native arteries of extremities with rest pain, left leg; I25.10 Atherosclerotic heart disease of native coronary artery without angina pectoris; L98.491 Non-pressure chronic ulcer of skin of other sites limited to breakdown of skin; I10 Essential (primary) hypertension; B96.29 Other Escherichia coli [E. coli] as the cause of diseases classified elsewhere; E11.65 Type 2 diabetes mellitus with hyperglycemia; Z78.1 Physical restraint status; Z16.12 Extended spectrum beta lactamase (ESBL) resistance; E11.622 Type 2 diabetes mellitus with other skin ulcer; I96 Gangrene, not elsewhere classified; Z86.73 Personal history of transient ischemic attack (TIA), and cerebral infarction without residual deficits; E87.5 Hyperkalemia

== ENCOUNTER 2023-05-09 10:03 | Observation (INO) ==
--- NOTE | 2023-05-09 10:17 | DR.AMS ---
HPI Time Seen Time Seen by Provider: 05/09/23 10:17 Complaint Cheif Complaint Doctors Comments: 67-year-old female sent in from jail for evaluation. Patient with altered mental status, somnolent, nonverbal. Patient recently discharged from our hospital after undergoing amputation of the left middle toe. Has necrosis of the tip of the left second toe. Patient unable to offer information. No reported fever, chills, URI symptoms, bowel or bladder issues from the jail. RN called jail for further information. Since discharge from the hospital patient has been steadily altered she has been confused and agitated. She improves with medication. They gave her p.o. Ativan this a.m., followed shortly thereafter with oxycodone. care home concerned that her leg was mottled, cold and necrosis of the toe. Patient does have peripheral vascular disease, poor peripheral pulses. Her extremities are not mottled, warm, pulses evident on Doppler exam. 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, mild ), Depression and Diabetes Past Surgical History: Yes Surgical History: Abdominal Surgery and Cholecystectomy Family History Family Medical History: Diabetes Mellitus ROS Review of Systems Unable to Obtain Due To: Altered mental status PE Vitals Vital Signs: Temp Pulse Resp BP Pulse Ox O2 Del Method 05/09/23 12:15 62 20 100 05/09/23 12:08 61 25 H 100 05/09/23 12:08 118/57 05/09/23 12:00 60 40 H 100 05/09/23 11:45 61 42 H 100 05/09/23 11:35 112/49 05/09/23 11:35 63 19 100 05/09/23 11:30 62 30 H 100 05/09/23 11:23 64 05/09/23 11:01 113/54 05/09/23 11:01 63 29 H 05/09/23 11:00 64 42 H 05/09/23 10:45 68 28 H 99 05/09/23 10:30 63 26 H 05/09/23 10:30 119/56 05/09/23 10:30 119/56 05/09/23 10:30 119/56 05/09/23 10:30 119/56 05/09/23 10:26 63 21 05/09/23 10:23 97.4 F L 62 20 114/49 93 L Nasal Cannula General General Appearance: Other (Somnolent, moans to noxious stimuli.) Eyes Eye exam: PERRL (2 mm bilaterally) ENT Mouth Exam: Other (Dry mucous membranes) Neck Neck Exam: Normal Inspection Respiratory Respiratory Exam: Normal Lung Sounds Bilat; negative Accessory Muscle Use or Respiratory Distress Cardiovascular Cardiovascular Exam: Regular Rate, Normal Rhythm and Normal Heart Sounds Abdominal Exam Abdominal Exam: Soft; negative Tenderness Extremities Extremities Exam: negative Edema Skin Skin Exam: Warm and Dry Other Exam Other Exam: Left foot -status post amputation of the middle toe, wound is healing. Left second toe with necrotic tissue of the distal tip of the second distal phalanx, no significant erythema, swelling. Pulses obtained via Doppler. COURSE Treatment Treatment: 67 y/[place] with altered mental status. Reportedly has had agitation/confusion since discharge from the hospital, recent left toe amputation. Patient medicated with Ativan, followed by oxycodone this a.m.. Patient is somnolent, on arousing with nurses she is confused. No obvious focal deficits.. Workup initiated. 1233 -labs show normal white count. She does have mild anemia with hemoglobin 9.7. Electrolytes overall acceptable except her glucose is elevated to 96. Has a normal troponin, lactic acid 1.7. Urinalysis shows too numerous to count white blood cell, positive for nitrites and leukocyte esterase. Chest x-ray with chronic fibrotic changes, no acute abnormalities. Patient a bit more alert but still confused. Patient given IV Rocephin for her UTI. CT of the brain was unremarkable for acute abnormalities. Patient given low-dose insulin for her hyperglycemia. Dr. Villar consulted for her lower extremity issues. Will admit to medicine, discussed with Dr. Grajeda, accepts the admission. ROR Labs Reviewed Laboratory Results Reviewed?: Yes 05/09/23 10:32 05/09/23 10:32 Laboratory: WBC 8.1 X10^3/uL (3.6-10.0) 05/09/23 10:32 RBC 3.20 X10^6/uL (3.5-5.4) L 05/09/23 10:32 Hgb 9.7 g/dL (12.0-16.0) L 05/09/23 10:32 Hct 30.9 % (36.0-47.0) L 05/09/23 10:32 MCV 96.4 fL (80.0-100.0) 05/09/23 10:32 MCH 30.4 pg (27.0-34.0) 05/09/23 10:32 MCHC 31.5 g/dL (33.0-35.0) L 05/09/23 10:32 RDW 18.8 % (11.6-16.5) H 05/09/23 10:32 Plt Count 247 X10^3/uL (150.0-450.0) 05/09/23 10:32 MPV 7.9 fL (7.4-11.0) 05/09/23 10:32 Neut % (Auto) 78.0 % (42.0-75.0) H 05/09/23 10:32 Lymph % (Auto) 16.7 % (21.0-51.0) L 05/09/23 10:32 [place] % (Auto) 3.0 % (0.0-13.0) 05/09/23 10:32 Eos % (Auto) 1.8 % (0.9-2.9) 05/09/23 10:32 Baso % (Auto) 0.5 % (0.2-1.0) 05/09/23 10:32 Neut # (Auto) 6.3 x10^3/uL (2.2-4.8) H 05/09/23 10:32 Lymph # (Auto) 1.4 X10^3/uL (1.3-2.9) 05/09/23 10:32 Garrett # (Auto) 0.2 x10^3/uL (0.3-0.8) L 05/09/23 10:32 Eos # (Auto) 0.1 x10^3/uL (0.0-0.2) 05/09/23 10:32 Baso # (Auto) 0.0 X10^3/uL (0.0-0.1) 05/09/23 10:32 Absolute Nucleated RBC 0.1 /100WBC 05/09/23 10:32 Sodium 146 mmol/L (136-145) H 05/09/23 10:32 Corrected Sodium 151 mmol/L (136-145) H 05/09/23 10:32 Potassium 3.4 mmol/L (3.5-5.1) L 05/09/23 10:32 Chloride 111 mmol/L (98-107) H 05/09/23 10:32 Carbon Dioxide 24.7 mmol/L (21-32) 05/09/23 10:32 BUN 40 mg/dL (7-18) H 05/09/23 10:32 Creatinine 1.70 mg/dL (0.55-1.02) H 05/09/23 10:32 Est GFR (MDRD) Af Amer 39 (>60) L 05/09/23 10:32 Est GFR (MDRD) Non-Af 32 (>60) L 05/09/23 10:32 Glucose 296 mg/dL (65-99) H 05/09/23 10:32 Lactic Acid 1.7 mmol/L (0.4-2.0) 05/09/23 10:32 Calcium 9.3 mg/dL (8.5-10.1) 05/09/23 10:32 Corrected Calcium 10.5 mg/dL (8.5-10.1) H 05/09/23 10:32 Total Bilirubin 0.40 mg/dL (0.2-1.0) 05/09/23 10:32 AST 19 Units/L (15-37) 05/09/23 10:32 ALT 13 Units/L (12-78) 05/09/23 10:32 Alkaline Phosphatase 121 Units/L (46-116) H 05/09/23 10:32 Troponin I High Sens 13.1 ng/L (4.0-60.0) 05/09/23 10:32 Total Protein 7.7 g/dL (6.4-8.2) 05/09/23 10:32 Albumin 2.5 g/dL (3.4-5.0) L 05/09/23 10:32 Globulin 5.2 g/dL (2.5-4.5) H 05/09/23 10:32 Albumin/Globulin Ratio 0.5 Ratio (1.1-2.1) L 05/09/23 10:32 Specimen Type Catherized urine 05/09/23 10:44 Urine Color Straw (YELLOW) 05/09/23 10:44 Urine Appearance Flocculent (CLEAR) 05/09/23 10:44 Urine pH 6.0 (5.0 - 8.0) 05/09/23 10:44 Ur Specific [place] 1.010 (1.000-1.030) 05/09/23 10:44 Urine Protein 2+ (NEGATIVE) 05/09/23 10:44 Urine Glucose (UA) 4+ (NEGATIVE) 05/09/23 10:44 Urine Ketones Negative (NEGATIVE) 05/09/23 10:44 Urine Blood 1+ (NEGATIVE) 05/09/23 10:44 Urine Nitrite Positive (NEGATIVE) 05/09/23 10:44 Urine Bilirubin Negative (NEGATIVE) 05/09/23 10:44 Urine Urobilinogen Normal (NORMAL) 05/09/23 10:44 Ur Leukocyte Esterase 2+ (NEGATIVE) 05/09/23 10:44 Urine RBC 3-5 /HPF (0-3) A 05/09/23 10:44 Urine WBC Tntc /HPF (0-5) A 05/09/23 10:44 Ur Squamous Epith Cells Few /HPF (NEGATIVE) 05/09/23 10:44 Urine Bacteria 3+ /HPF (NEGATIVE) 05/09/23 10:44 Ur Culture Indicated? Yes/culture set up 05/09/23 10:44 Urine Opiates Screen Negative (NEG=<300) 05/09/23 10:44 Urine Methadone Screen Negative (NEG=<300) 05/09/23 10:44 Ur Barbiturates Screen Negative (NEG=<200) 05/09/23 10:44 Ur Phencyclidine Scrn Negative (NEG=<25) 05/09/23 10:44 Ur Amphetamines Screen Negative (NEG=<1000) 05/09/23 10:44 U Benzodiazepines Scrn Negative (NEG=<200) 05/09/23 10:44 Urine Cocaine Screen Negative (NEG=<300) 05/09/23 10:44 U Marijuana (THC) Screen Negative (NEG=<50) 05/09/23 10:44 EKG Rate: 63 [place]: Normal Rhythm: NSR and PACs ST: Nonsp Opioid Opioid Risk Tool Age (Guerrero box if 16-45): No History of Preadolescent Sexual Abuse: No Total: 0 Total Score Risk Category: Low Risk Copyright: Mateus KINSEY predicting aberrant behaviors Discharge Plan Diagnosis Discharge Problem: Acute UTI, Altered mental status Discharge Plan Patient Disposition: 09 ADMITTED INPATIENT Condition: Stable Prescriptions: No Action atorvastatin 40 mg tablet 40 mg PO HS methocarbamol 500 mg tablet 500 mg PO HS clopidogrel 75 mg tablet 75 mg PO QDAY gabapentin 800 mg tablet 800 mg PO TID rivastigmine tartrate 4.5 mg capsule 4.5 mg PO BID lisinopril 2.5 mg tablet 2.5 mg PO QDAY metoprolol tartrate 25 mg tablet 12.5 mg PO BID duloxetine 30 mg capsule,delayed release(DR/EC) 30 mg PO BID Myrbetriq 50 mg tablet extended release 24 hr 50 mg PO QDAY Jardiance 25 mg tablet 25 mg PO QDAY aspirin 81 mg Tablet,Chewable 81 mg PO QDAY docusate sodium [Colace] 100 mg Capsule 100 mg PO BID diphenhydramine HCl 25 mg Capsule 25 mg PO TID PRN oxycodone-acetaminophen 5-325 mg Tablet 1 tab PO Q6H PRN polyethylene glycol 3350 17 gram Powder In Packet 17 g PO DAILY calcium carbonate 600 mg calcium (1,500 mg) Tablet 600 mg PO BID melatonin 5 mg Tablet 10 mg PO HS Lantus U-100 Insulin 100 unit/mL Cartridge 10 unit SUBCUT QAM insulin glargine [Lantus Solostar U-100 Insulin] 100 unit/mL (3 mL) Insulin Pen 20 unit SUBCUT QHS insulin lispro 100 unit/mL Solution 1 sliding scale dose SUBCUT USEASDIRECTD Rx Instructions: per sliding scale Xarelto 2.5 mg tablet 2.5 mg PO BID Qty: 180 0RF olanzapine 5 mg tablet 10 mg PO HS cholecalciferol (vitamin D3) [Vitamin D3] 125 mcg (5,000 unit) Tablet 125 mcg PO QDAY Biofreeze (menthol) 4 % Gel 1 applic TOPICAL DAILY PRN doxycycline hyclate 100 mg capsule 100 mg PO QDAY MDD 100mg Qty: 14 0RF Rx Instructions: Take 1 tab daily x 14 days - started on 05/05/23 fluticasone propion-salmeterol [Advair Diskus] 250-50 mcg/dose Blister With Device 1 inh INHALATION BID dextrose [Insta-Glucose] 40 % Gel 1 ea PO PRN PRN lorazepam 1 mg tablet 1 mg PO Q8H PRN (Reason: Anxiety) GlucaGen 1 mg Recon Soln 1 mg IM PRN PRN cyanocobalamin (vitamin B-12) 1,000 mcg/mL Kit 1,000 mcg IM MONTHLY Evenity 105 mg/1.17 mL Syringe See Rx Instructions .ROUTE .COMPLEX Rx Instructions: inject 2 syringes subcutaneously for a total of 210mg/2.34ml once monthly on the Health Concerns: Post Hospitalization: new medications and changes needed to prevent readmission or further decline. Pt educated and given instructions on all concerns. Plan of Treatment: Continue with present treatment and follow up plan. Pt is to keep follow up appointment as instructed and take medications as ordered. Orders to Discharge Patient Discharge Orders: Transfer (Routine); Ordered 05/09/23 Ordered By: Hong Yuen Follow ups/Referrals Follow ups/Referrals: Valentin Villar [Primary Care Provider] - 3 days
--- NOTE | 2023-05-09 10:36 | EKG ---
Test Reason : altered mental status Blood Pressure : */* mmHG Vent. Rate : 63 BPM Atrial Rate : 63 BPM P-R Int : 170 ms QRS Dur : 94 ms QT Int : 462 ms P-R-T Axes : 83 -1 68 degrees QTc Int : 472 ms Sinus rhythm with premature atrial complexes Inferior infarct (cited on or before 10-APR-2023) Abnormal ECG When compared with ECG of 10-APR-2023 15:39, premature atrial complexes are now present Minimal criteria for Anterior infarct are no longer present Confirmed by Vasile Vail MD ([id number]) on 05/09/2023 11:27:46 AM Referred By: Confirmed By: Vasile Vail MD
[2023-05-09 10:37] VITALS: BMI 31.4
[2023-05-09] MEDS: NS 1,000 ML IV 1,000 ML IV ONE (10:40)
[2023-05-09] MEDS: NS 1,000 ML IV 1,000 ML ONE (10:40)
--- NOTE | 2023-05-09 10:48 | RAD ---
EXAM:AP chestHISTORY:AMSCOMPARISON:04/11/2023, 04/10/2023FINDINGS:Heart size normal. Mild interstitial prominence in the lower lobes is likely chronic fibrotic scarring. No airspace component, edema or pleural fluid is demonstrated.IMPRESSION:No definite interval change or acute findings. See above.THIS IS AN ELECTRONICALLY VERIFIED FINAL REPORT05/09/2023 10:39 AM - Electronically signed by Chris Rodriguez MD
[2023-05-09 11:03] LABS: BASOPHILS % (AUTO) 0.5 % (0.2-1.0); EOSINOPHILS # (AUTO) 0.1 x10^3/uL (0.0-0.2); EOSINOPHILS % (AUTO) 1.8 % (0.9-2.9); HEMATOCRIT 30.9 % (36.0-47.0); HEMOGLOBIN 9.7 g/dL (12.0-16.0); LYMPHOCYTES # (AUTO) 1.4 X10^3/uL (1.3-2.9); LYMPHOCYTES % (AUTO) 16.7 % (21.0-51.0); MEAN CORPUSCULAR HEMOGLOBIN 30.4 pg (27.0-34.0); MEAN CORPUSCULAR HGB CONC 31.5 g/dL (33.0-35.0); MEAN CORPUSCULAR VOLUME 96.4 fL (80.0-100.0); MEAN PLATELET VOLUME 7.9 fL (7.4-11.0); MONOCYTES # (AUTO) 0.2 x10^3/uL (0.3-0.8); NEUTROPHILS # (AUTO) 6.3 x10^3/uL (2.2-4.8); PLATELET COUNT 247 X10^3/uL (150.0-450.0); RED CELL DISTRIBUTION WIDTH 18.8 % (11.6-16.5); WHITE BLOOD COUNT 8.1 X10^3/uL (3.6-10.0)
[2023-05-09 11:07] LABS: BILIRUBIN,URINE NEGATIVE (NEGATIVE); BLOOD/HEMOGLOBIN,URINE 1+ (NEGATIVE); GLUCOSE, URINE 4+ (NEGATIVE); KETONES,URINE NEGATIVE (NEGATIVE); LEUKOCYTE ESTERASE ,URINE 2+ (NEGATIVE); NITRITES,URINE POSITIVE (NEGATIVE); PROTEIN,URINE 2+ (NEGATIVE); UROBILINOGEN,URINE NORMAL (NORMAL)
[2023-05-09 11:22] LABS: ALBUMIN 2.5 g/dL (3.4-5.0); CALCIUM 9.3 mg/dL (8.5-10.1); CARBON DIOXIDE 24.7 mmol/L (21-32); COR CA(FOR HYPOALB) 10.5 mg/dL (8.5-10.1); CREATININE 1.7 mg/dL (0.55-1.02); POTASSIUM 3.4 mmol/L (3.5-5.1); TOTAL PROTEIN 7.7 g/dL (6.4-8.2)
[2023-05-09 11:24] LABS: APPEARANCE,URINE FLOCCULENT (CLEAR); COLOR,URINE STRAW (YELLOW)
[2023-05-09 11:25] LABS: BACTERIA,URINE 3+ /HPF (NEGATIVE); SQUAMOUS EPITHELIAL CELL,UR FEW /HPF (NEGATIVE)
[2023-05-09] MEDS ORDERED: ROCEPHIN VIAL 1 GRAM ONE (11:29)
[2023-05-09] MEDS: ROCEPHIN VIAL 1 GRAM IV ONE (11:32)
--- NOTE | 2023-05-09 11:33 | CT ---
EXAM:BRAIN W/O CONHISTORY:ALTERED MENTAL STATUS, LOW BP, S/P SURGERY;COMPARISON:No relevant prior studies were available for comparison at the time of interpretation..TECHNIQUE:CT images were obtained. Multiplanar reconstructions were created on a separate workstation and used during interpretation. All CT scans at this facility is dose modulation, iterative reconstruction, and/or weight-based dosing as appropriate to reduce radiation to levels as low as reasonably achievable (ALARA). Postprocessing details, radiation dose, and contrast dose (if applicable) are recorded in the patient's medical record.FINDINGS:Acute findings: There is no intracranial hemorrhage. No mass effect. No intra-axial or extra-axial fluid collection. There is no mass. No tentorial, uncal, or tonsillar herniation.Brain volume and white matter: There is diffuse cortical atrophy. There is hypoattenuation in the supratentorial white matter consistent with chronic microvascular ischemic disease.Ventricles: No hydrocephalusMidline structures: Pituitary gland and corpus callosum are normal.Posterior fossa and skull base: Cerebellum and posterior fossa are within normal limits. Basal cisterns are not effaced.Sinuses and mastoids: Paranasal sinuses and mastoid air cells are predominantly clear.Globes and Orbits: Bilateral lens implants. Right global banding. Globes are intact. Bony orbits are intact. Extraocular muscles and retrobulbar fat appear normal.Skull and soft tissues: No depressed skull fracture. Calvarium appears intact. No scalp injury is identified.IMPRESSION:1. No acute intracranial abnormalityTHIS IS AN ELECTRONICALLY VERIFIED FINAL REPORT05/09/2023 11:29 AM - Electronically signed by Herminio Hdez MD
[2023-05-09] MEDS: ROCEPHIN VIAL 1 GRAM 1 G in NS 100 ML IV 100 ML IV SCH (13:38)
[2023-05-09] MEDS: NovoLIN R (or HumuLIN R) SUBCUT ONE (13:39)
[2023-05-09] MEDS: NovoLIN R (or HumuLIN R) ONE (13:54)
[2023-05-09] MEDS ORDERED: D5 NS 1,000 ML IV 1,000 ML IV SCH (14:12)
[2023-05-09] MEDS ORDERED: CONSULT PHARMACY - POTASSIUM & MAGNESIUM XX SCH (14:12)
[2023-05-09] MEDS: D5 1/2 NS + KCL 20 MEQ/L 1,000 ML IV SCH (15:16)
--- NOTE | 2023-05-09 18:51 | DR.CONSULT ---
CONSULT Consultation for Day of: Date: 05/09/23 Chief Complaint Chief Complaint: 67 year old female, resident of a custodial facility and well known to me who has been seen recently for gangrenous changes of the left third toe. Last week she underwent arterial invention of the left leg to restore blood flow and subsequent amputation of the left third toe by Dr. Diaz .She was discharged back to her [facility]. Several weeks prior to that she had the same problem with the right leg and had arterial intervention with amputation in the right great toe She has had continued agitation at the Senior Living Facility and presented to the emergency room where she has a diagnosis of urinary tract infection and they noted that she has dry gangrenous changes of the left second toe as well as redness onto the dorsum of the left foot. I have been asked to see your in consultation . There is some question as to whether the Senior Living Facility is concerned about a cool right foot as well. Allergies Allergies Allergy/AdvReac Type Severity Reaction Status Date / Time No Known Allergies Allergy Verified 05/09/23 10:04 History of Present Illness History of Present Illness: see above Past Medical History Past Medical History: Anemia, Anxiety, Arthritis, COPD, Coronary Artery Disease, CVA, Dementia, Depression, Diabetes, Dyslipidemia, Hypertension and Renal Disease Past Surgical History Surgical History: Abdominal Surgery, Cholecystectomy and Ortho Surgery Family History Family Medical History: Diabetes Mellitus Social History Does patient currently use any type of tobacco product: No Have you used tobacco products in the last 12 months: No Type of Tobacco Use: None Does any household member use tobacco: No Alcohol Use: None Drug Use: None Medications Home Medications: No Known Allergies Allergy (Verified 05/09/23 10:04) CONTINUE taking the following medications cyanocobalamin (vitamin B-12) 1,000 mcg/mL injection kit 1,000 mcg IM MONTHLY 05/09/23 [History] dextrose 40 % oral gel 1 ea PO PRN PRN 05/09/23 [History] fluticasone 250 mcg-salmeterol 50 mcg/dose blistr powdr for inhalation (Advair Diskus) 1 inh inhalation BID 05/09/23 [History] glucagon 1 mg solution for injection 1 mg IM PRN PRN 05/09/23 [History] lorazepam 1 mg tablet 1 mg PO Q8H PRN Anxiety 05/09/23 [History] romosozumab-aqqg 105 mg/1.17 mL subcutaneous syringe (Evenity) See Rx Instructions .Route .COMPLEX 05/09/23 [History] Review of Systems Constitutional: See HPI Eyes: No Symptoms Reported ENT: No Symptoms Reported Respiratory: No Symptoms Reported Cardiovascular: No Symptoms Reported Gastrointestinal: No Symptoms Reported Genitourinary: No Symptoms Reported Musculoskeletal: No Symptoms Reported Skin: See HPI Neurological: See HPI Physical Exam Vital Signs: Vital Signs Temperature 98 F Temperature 97.2 F Pulse Rate [Brachial] 64 Pulse Rate [Brachial] 79 Pulse Rate 62 Pulse Rate 61 Pulse Rate 60 Pulse Rate 61 Pulse Rate 63 Pulse Rate 62 Pulse Rate 64 Pulse Rate 63 Pulse Rate 64 Pulse Rate 68 Respiratory Rate 16 Respiratory Rate 20 Respiratory Rate 20 Respiratory Rate 25 Respiratory Rate 40 Respiratory Rate 42 Respiratory Rate 19 Respiratory Rate 30 Respiratory Rate 29 Respiratory Rate 42 Respiratory Rate 28 Blood Pressure [Left Arm] 128/54 Blood Pressure [Left Arm] 159/59 Blood Pressure 118/57 Blood Pressure 112/49 Blood Pressure 113/54 O2 Sat by Pulse Oximetry 100 O2 Sat by Pulse Oximetry 98 O2 Sat by Pulse Oximetry 100 O2 Sat by Pulse Oximetry 100 O2 Sat by Pulse Oximetry 100 O2 Sat by Pulse Oximetry 100 O2 Sat by Pulse Oximetry 100 O2 Sat by Pulse Oximetry 100 O2 Sat by Pulse Oximetry 99 Oriented: Other (patient confused and agitated ); negative Time, Place or Not Oriented Eyes: Normal Ear: Normal Nose: Normal Throat: Normal Respiratory: Clear Throughout Cardiovascular: Normal and Other (left leg and foot are warm with excellent biphasic doppler signals of both the anterior tibial and posterior tibial arteries , right leg not quite as warm however the patient has an excellent bip hasic doppler sin the right anterior tibial with no wounds and a well-healed right great toe Ray amputati) : Normal Auscultation: Bowel Sounds: Normal Palpation: Normal Tenderness: Normal Skin: Other (healed right great toe amputation, closed incision at the base of the left third toe amputation with redness onto the dorsum of the left foot extending from this amputation and dry ga ngrene of the distal left second toe ) Musculoskeletal: Normal Psychiatric: Agitation Mood Description: Anxious and Labile Affect: Anxious Speech Pattern: Clear and Excessive Plan (1) Atherosclerosis of [place] arteries of extremities with rest pain, left leg: Status: Acute Plan: Intervention of the left leg in the past successful with evidence of cellulits and gangrene of the left second toe probaly related to digital disease .Would discontinue Rochephin begin Zosyn IV. Willl consult a Podiatry to assess the toes as he performed the amputation . I have nothing else to add at this time . Will follow . Will begin her aspirin and Atorvastin. (2) Atherosclerosis of [place] arteries of extremities with rest pain, right leg: Status: Acute Plan: Rght leg not as warm as the left leg however the anterior tibial artery is intact with no wounds and a healed amputation site. Will follow this at this time (3) Cellulitis of left foot: Status: Acute Plan: change Rochephin to IV Zoysn and await culture results
[2023-05-09] MEDS ORDERED: NS 250 ML IV 25 ML IV PRN (18:52)
[2023-05-09] MEDS: ATIVAN TAB 1 MG PO PRN (18:55)
[2023-05-09] MEDS: PERCOCET TAB 5/325 MG PO PRN (18:58)
[2023-05-09] MEDS: DUONEB 0.5 MG/3 MG (3 mL) NEB SCH (20:23)
[2023-05-09] MEDS: PULMICORT NEB TX 0.5 MG NEB SCH (20:24)
[2023-05-09] MEDS: OSCAL+D or CALTRATE+D PO SCH (20:42)
[2023-05-09] MEDS: CYMBALTA PO SCH (20:43)
[2023-05-09] MEDS: XARELTO PO SCH (20:43)
[2023-05-09] MEDS: ZyPREXA TAB 5 MG PO SCH (20:43)
[2023-05-09] MEDS: LIPITOR TAB 40 MG PO SCH (20:43)
[2023-05-09] MEDS: COLACE CAP 100 MG PO SCH (20:44)
[2023-05-09] MEDS: LOPRESSOR TAB 25 MG PO SCH (20:44)
[2023-05-09] MEDS: EXELON PO SCH (20:44)
[2023-05-09] MEDS: ZOSYN VIAL 3.375 GRAMS 3.375 G in NS 100 ML IV 100 ML IV SCH (20:46)
[2023-05-09] MEDS: SNACK - Diabetic Appropriate PO SCH (20:47)
[2023-05-09] MEDS: LANTUS SC SCH (20:49)
[2023-05-09] MEDS: NovoLIN R (or HumuLIN R) SC PRN (20:50)
[2023-05-09] MEDS: ROBAXIN PO SCH (20:56)
[2023-05-09] MEDS ORDERED: PULMICORT NEB TX 0.5 MG NEB SCH (21:00)
[2023-05-09] MEDS: NEURONTIN CAP 400 MG PO SCH (21:04)
[2023-05-09] MEDS ORDERED: BUTT CREAM (COMPOUND) TOP PRN (23:35)
[2023-05-10 05:09] LABS: HEMOGLOBIN 10.7 g/dL (12.0-16.0)
[2023-05-10 05:15] LABS: BASOPHILS % (AUTO) 0.4 % (0.2-1.0); EOSINOPHILS # (AUTO) 0.2 x10^3/uL (0.0-0.2); EOSINOPHILS % (AUTO) 3.1 % (0.9-2.9); HEMATOCRIT 33.4 % (36.0-47.0); LYMPHOCYTES # (AUTO) 0.9 X10^3/uL (1.3-2.9); LYMPHOCYTES % (AUTO) 11.5 % (21.0-51.0); MEAN CORPUSCULAR HEMOGLOBIN 30.2 pg (27.0-34.0); MEAN CORPUSCULAR HGB CONC 31.9 g/dL (33.0-35.0); MEAN CORPUSCULAR VOLUME 94.6 fL (80.0-100.0); MEAN PLATELET VOLUME 7.9 fL (7.4-11.0); MONOCYTES # (AUTO) 0.4 x10^3/uL (0.3-0.8); MONOCYTES % (AUTO) 4.7 % (0.0-13.0); NEUTROPHILS # (AUTO) 6.1 x10^3/uL (2.2-4.8); NEUTROPHILS % (AUTO) 80.3 % (42.0-75.0); PLATELET COUNT 283 X10^3/uL (150.0-450.0); RED BLOOD COUNT 3.53 X10^6/uL (3.5-5.4); RED CELL DISTRIBUTION WIDTH 18.7 % (11.6-16.5); WHITE BLOOD COUNT 7.6 X10^3/uL (3.6-10.0)
[2023-05-10] MEDS: ZOSYN VIAL 3.375 GRAMS 3.375 G in NS 100 ML IV 100 ML IV SCH (05:16)
[2023-05-10] MEDS: NYSTATIN POWDER TOP SCH (05:17)
[2023-05-10 05:22] LABS: ALBUMIN 2.3 g/dL (3.4-5.0); CALCIUM 9.1 mg/dL (8.5-10.1); CARBON DIOXIDE 23.5 mmol/L (21-32); COR CA(FOR HYPOALB) 10.5 mg/dL (8.5-10.1); CREATININE 1.41 mg/dL (0.55-1.02); POTASSIUM 3.6 mmol/L (3.5-5.1); TOTAL PROTEIN 7.5 g/dL (6.4-8.2)
[2023-05-10] MEDS ORDERED: CONSULT PHARMACY - POTASSIUM & MAGNESIUM XX SCH (07:00)
[2023-05-10] MEDS: PULMICORT NEB TX 0.5 MG NEB ONE (07:09)
[2023-05-10] MEDS: ASPIRIN 81 MG CHEWTAB PO SCH (08:06)
[2023-05-10] MEDS: K-DUR TAB 20 MEQ PO SCH (08:07)
[2023-05-10] MEDS: FARXIGA PO SCH (08:07)
[2023-05-10] MEDS: VITAMIN D3 125 mcg (5,000 UNITS) PO SCH (08:08)
[2023-05-10] MEDS: MIRALAX POWDER (1 DOSE 17 G) PO SCH (08:08)
[2023-05-10] MEDS: ZESTRIL TAB 5 MG PO SCH (08:09)
[2023-05-10] MEDS: LANTUS SC SCH (08:20)
--- NOTE | 2023-05-10 08:26 | NOTE.SOAP ---
Soap Note Note for Day of Date of Exam: 05/10/23 Subjective Data Subjective Data: 67 F well known to our services for history of critical limb ischemia, was admitted for a UTI. She was sleeping comfortably upon evaluation this morning, but presents with a painful necrotic left 2nd digit. Objective Data Objective Data: Dry gangrenous tuft of the left 2nd digit. Cicatrix from previous toe amputations No changes with neurovascular status Assessment Assessment: 67 year old female with Gangrene of left 2nd digit Plan Plan: Patient was seen bedside. Patient was sleeping, will need to discuss plan with daughter but to amputate the 2nd digit of the left foot. It will not impro ve and only get worse if not amputated. She is always at risk of dehiscence due to her vascular status. Patient NPO and plan to amputate toe this afternoon
[2023-05-10] MEDS ORDERED: PLAVIX PO SCH (09:00)
--- NOTE | 2023-05-10 09:14 | DR.H&P ---
H&P History & Physical for Day of: H&P Date: 05/10/23 Chief Complaint Chief Complaint: toe necrosis, AMS Allergies Allergies Allergy/AdvReac Type Severity Reaction Status Date / Time No Known Allergies Allergy Verified 05/09/23 10:04 History of Present Illness History of Present Illness: Ms Storm is a 67y/o female with a PMH of PVD, CAD, DM, Anemia and multiple toe amputations presented with AMS and left foot 2nd toe gangrene. She was recently admitted for amputation of left foot 3rd toe and also underwent arterial intervention of left leg. She was sent back to SNF. In the ER, she was found to have UTI, hypernatremia and JEAN. Ct-head and CXR did not show any acute changes. She was started on IV Rocephin. Dr Villar was consulted along with Podiatry. Patient has been evaluated by Podiatry and plan is to do left foot 2nd toe amputation this afternoon. Labs/imaging reviewed -Na:146 Hgb 10.7 BUN/Cr: 28/1.41 - Urine Cx: gram (-) rods Plan: follow Vascular and Podiatry recommendations. Plan to amputate left foot 2nd toe today. Hold Xarelto. Switch Zosyn to Invanz, patient's prior Urine Cx has shown ESBL E.coli. Patient NPO for now. Follow final cultures. Continue hydration with D5. Monitor AM labs/imaging. Past Medical History Past Medical History: Anemia, Anxiety, Arthritis, COPD, Coronary Artery Disease, CVA, Dementia, Depression, Diabetes, Dyslipidemia, Hypertension and Renal Disease Past Surgical History Surgical History: Abdominal Surgery, Cholecystectomy and Ortho Surgery Family History Family Medical History: Diabetes Mellitus Social History Does patient currently use any type of tobacco product: No Have you used tobacco products in the last 12 months: No Type of Tobacco Use: None Does any household member use tobacco: No Alcohol Use: None Drug Use: None Medications Home Medications: Home Medications Medication Instructions Recorded Confirmed Type aspirin 81 mg chewable tablet 81 mg PO QDAY 04/10/23 05/09/23 History atorvastatin 40 mg tablet 40 mg PO HS 04/10/23 05/09/23 History calcium carbonate 600 mg calcium 600 mg PO BID 04/10/23 05/09/23 History (1,500 mg) tablet clopidogrel 75 mg tablet 75 mg PO QDAY 04/10/23 05/09/23 History diphenhydramine HCl 25 mg capsule 25 mg PO TID PRN 04/10/23 05/09/23 History docusate sodium 100 mg capsule 100 mg PO BID 04/10/23 05/09/23 History (Colace) duloxetine 30 mg capsule,delayed 30 mg PO BID 04/10/23 05/09/23 History release empagliflozin 25 mg tablet 25 mg PO QDAY 04/10/23 05/09/23 History (Jardiance) gabapentin 800 mg tablet 800 mg PO TID 04/10/23 05/09/23 History insulin glargine 100 unit/mL (3 20 unit subcut QHS 04/10/23 05/09/23 History mL) subcutaneous pen (Lantus Solostar U-100 Insulin) insulin glargine 100 unit/mL 10 unit subcut QAM 04/10/23 05/09/23 History subcutaneous cartridge lisinopril 2.5 mg tablet 2.5 mg PO QDAY 04/10/23 05/09/23 History melatonin 5 mg tablet 10 mg PO HS 04/10/23 05/09/23 History methocarbamol 500 mg tablet 500 mg PO HS 04/10/23 05/09/23 History metoprolol tartrate 25 mg tablet 12.5 mg PO BID 04/10/23 05/09/23 History mirabegron 50 mg tablet,extended 50 mg PO QDAY 04/10/23 05/09/23 History release 24 hr (Myrbetriq) oxycodone-acetaminophen 5 mg-325 1 tab PO Q6H PRN 04/10/23 05/09/23 History mg tablet polyethylene glycol 3350 17 gram 17 g PO DAILY 04/10/23 05/09/23 History oral powder packet rivastigmine tartrate 4.5 mg 4.5 mg PO BID 04/10/23 05/09/23 History capsule insulin lispro 100 unit/mL 1 sliding scale dose subcut 04/11/23 05/09/23 History subcutaneous solution USEASDIRECTD cholecalciferol (vitamin D3) 125 125 mcg PO QDAY 05/01/23 05/09/23 History mcg (5,000 unit) tablet (Vitamin D3) menthol 4 % topical gel (Biofreeze 1 applic topical DAILY PRN 05/01/23 05/09/23 History (menthol)) olanzapine 5 mg tablet 10 mg PO HS 05/01/23 05/09/23 History cyanocobalamin (vitamin B-12) 1,000 mcg IM MONTHLY 05/09/23 05/09/23 History 1,000 mcg/mL injection kit dextrose 40 % oral gel 1 ea PO PRN PRN 05/09/23 05/09/23 History fluticasone 250 mcg-salmeterol 50 1 inh inhalation BID 05/09/23 05/09/23 History mcg/dose blistr powdr for inhalation (Advair Diskus) glucagon 1 mg solution for 1 mg IM PRN PRN 05/09/23 05/09/23 History injection lorazepam 1 mg tablet 1 mg PO Q8H PRN Anxiety 05/09/23 05/09/23 History romosozumab-aqqg 105 mg/1.17 mL See Rx Instructions .Route .COMPLEX 05/09/23 05/09/23 History subcutaneous syringe (Evenity) Labs 05/10/23 04:50 05/10/23 04:50 Labs: 05/09/23 10:44 Urine,Catheterized Urine Culture - Preliminary Laboratory WBC 7.6 X10^3/uL (3.6-10.0) 05/10/23 04:50 RBC 3.53 X10^6/uL (3.5-5.4) 05/10/23 04:50 Hgb 10.7 g/dL (12.0-16.0) L 05/10/23 04:50 Hct 33.4 % (36.0-47.0) L 05/10/23 04:50 MCV 94.6 fL (80.0-100.0) 05/10/23 04:50 MCH 30.2 pg (27.0-34.0) 05/10/23 04:50 MCHC 31.9 g/dL (33.0-35.0) L 05/10/23 04:50 RDW 18.7 % (11.6-16.5) H 05/10/23 04:50 Plt Count 283 X10^3/uL (150.0-450.0) 05/10/23 04:50 MPV 7.9 fL (7.4-11.0) 05/10/23 04:50 Neut % (Auto) 80.3 % (42.0-75.0) H 05/10/23 04:50 Lymph % (Auto) 11.5 % (21.0-51.0) L 05/10/23 04:50 [place] % (Auto) 4.7 % (0.0-13.0) 05/10/23 04:50 Eos % (Auto) 3.1 % (0.9-2.9) H 05/10/23 04:50 Baso % (Auto) 0.4 % (0.2-1.0) 05/10/23 04:50 Neut # (Auto) 6.1 x10^3/uL (2.2-4.8) H 05/10/23 04:50 Lymph # (Auto) 0.9 X10^3/uL (1.3-2.9) L 05/10/23 04:50 [place] # (Auto) 0.4 x10^3/uL (0.3-0.8) 05/10/23 04:50 Eos # (Auto) 0.2 x10^3/uL (0.0-0.2) 05/10/23 04:50 Baso # (Auto) 0.0 X10^3/uL (0.0-0.1) 05/10/23 04:50 Absolute Nucleated RBC 0.0 /100WBC 05/10/23 04:50 Sodium 145 mmol/L (136-145) 05/10/23 04:50 Corrected Sodium 146 mmol/L (136-145) H 05/10/23 04:50 Potassium 3.6 mmol/L (3.5-5.1) 05/10/23 04:50 Chloride 112 mmol/L (98-107) H 05/10/23 04:50 Carbon Dioxide 23.5 mmol/L (21-32) 05/10/23 04:50 BUN 28 mg/dL (7-18) H 05/10/23 04:50 Creatinine 1.41 mg/dL (0.55-1.02) H 05/10/23 04:50 Est GFR (MDRD) Af Amer 48 (>60) L 05/10/23 04:50 Est GFR (MDRD) Non-Af 40 (>60) L 05/10/23 04:50 Glucose 153 mg/dL (65-99) H 05/10/23 04:50 POC Glucose (mg/dL) 152 mg/dL (65-99) H 05/10/23 05:24 Lactic Acid 1.7 mmol/L (0.4-2.0) 05/09/23 10:32 Calcium 9.1 mg/dL (8.5-10.1) 05/10/23 04:50 Corrected Calcium 10.5 mg/dL (8.5-10.1) H 05/10/23 04:50 Magnesium 2.0 mg/dL (2.0-2.9) 05/10/23 04:50 Total Bilirubin 0.40 mg/dL (0.2-1.0) 05/10/23 04:50 AST 17 Units/L (15-37) 05/10/23 04:50 ALT 10 Units/L (12-78) L 05/10/23 04:50 Alkaline Phosphatase 110 Units/L (46-116) 05/10/23 04:50 Troponin I High Sens 13.1 ng/L (4.0-60.0) 05/09/23 10:32 Total Protein 7.5 g/dL (6.4-8.2) 05/10/23 04:50 Albumin 2.3 g/dL (3.4-5.0) L 05/10/23 04:50 Globulin 5.2 g/dL (2.5-4.5) H 05/10/23 04:50 Albumin/Globulin Ratio 0.4 Ratio (1.1-2.1) L 05/10/23 04:50 Specimen Type Catherized urine 05/09/23 10:44 Urine Color Straw (YELLOW) 05/09/23 10:44 Urine Appearance Flocculent (CLEAR) 05/09/23 10:44 Urine pH 6.0 (5.0 - 8.0) 05/09/23 10:44 Ur Specific [place] 1.010 (1.000-1.030) 05/09/23 10:44 Urine Protein 2+ (NEGATIVE) 05/09/23 10:44 Urine Glucose (UA) 4+ (NEGATIVE) 05/09/23 10:44 Urine Ketones Negative (NEGATIVE) 05/09/23 10:44 Urine Blood 1+ (NEGATIVE) 05/09/23 10:44 Urine Nitrite Positive (NEGATIVE) 05/09/23 10:44 Urine Bilirubin Negative (NEGATIVE) 05/09/23 10:44 Urine Urobilinogen Normal (NORMAL) 05/09/23 10:44 Ur Leukocyte Esterase 2+ (NEGATIVE) 05/09/23 10:44 Urine RBC 3-5 /HPF (0-3) A 05/09/23 10:44 Urine WBC Tntc /HPF (0-5) A 05/09/23 10:44 Ur Squamous Epith Cells Few /HPF (NEGATIVE) 05/09/23 10:44 Urine Bacteria 3+ /HPF (NEGATIVE) 05/09/23 10:44 Ur Culture Indicated? Yes/culture set up 05/09/23 10:44 Urine Opiates Screen Negative (NEG=<300) 05/09/23 10:44 Urine Methadone Screen Negative (NEG=<300) 05/09/23 10:44 Ur Barbiturates Screen Negative (NEG=<200) 05/09/23 10:44 Ur Phencyclidine Scrn Negative (NEG=<25) 05/09/23 10:44 Ur Amphetamines Screen Negative (NEG=<1000) 05/09/23 10:44 U Benzodiazepines Scrn Negative (NEG=<200) 05/09/23 10:44 Urine Cocaine Screen Negative (NEG=<300) 05/09/23 10:44 U Marijuana (THC) Screen Negative (NEG=<50) 05/09/23 10:44 Review of Systems Constitutional: See HPI Eyes: No Symptoms Reported ENT: No Symptoms Reported Respiratory: No Symptoms Reported Cardiovascular: No Symptoms Reported Gastrointestinal: No Symptoms Reported Genitourinary: No Symptoms Reported Musculoskeletal: No Symptoms Reported Skin: Other (left foot 2nd toe necrotic changes at the tip ) Neurological: Confusion Physical Exam Vital Signs: Vital Signs Temperature 97.1 F Temperature 98.1 F Pulse Rate [Brachial] 68 Pulse Rate [Brachial] 62 Pulse Rate 67 Respiratory Rate 20 Respiratory Rate 18 Blood Pressure [Left Arm] 131/60 Blood Pressure [Left Arm] 142/59 Blood Pressure [Left Arm] 144/64 O2 Sat by Pulse Oximetry 100 O2 Sat by Pulse Oximetry 100 O2 Sat by Pulse Oximetry 100 Oriented: Normal Eyes: Normal Throat: Normal Respiratory: Diminished Throughout Cardiovascular: Normal Auscultation: Bowel Sounds: Normal Palpation: Normal Tenderness: Normal Skin: Other (left 2nd toe necrotic changes ) Musculoskeletal: Motor Deficit (right and left foot toe amputations present ) Psychiatric: Normal Mood Description: Calm Affect: Normal Speech Pattern: Appropriate and Delayed Assessment/Plan (1) Gangrene of toe of left foot: Status: Acute (2) Acute UTI: Status: Acute (3) Altered mental status: Qualifiers: Altered mental status type: unspecified Qualified Code(s): R41.82 - Altered mental status, unspecified Status: Acute (4) Atherosclerosis of [place] arteries of extremities with rest pain, left leg: Status: Acute (5) Atherosclerosis of [place] arteries of extremities with rest pain, right leg: Status: Acute (6) Cellulitis of left foot: Status: Acute Review H&P Reviewed: Yes Patient was examined?: Yes
[2023-05-10] MEDS: INVanz INJ 1 GRAM VIAL 1 G in NS 100 ML IV 100 ML IV SCH (09:42)
[2023-05-10] MEDS: MARCAINE 0.25% INJ ONE (10:46)
[2023-05-10] MEDS: NS 1,000 ML IV 1,000 ML ONE (10:53)
[2023-05-10] MEDS: NS 100 ML IV 100 ML ONE (10:53)
[2023-05-10] MEDS: ANCEF VIAL 1 GRAM ONE (10:53)
[2023-05-10] MEDS: DIPRIVAN VIAL 20 ML ONE (11:14)
[2023-05-10] MEDS: BETADINE SOLN ONE (11:14)
[2023-05-10] MEDS: XYLOCAINE 1% and EPINEPHRINE 1:100,000 ONE (11:23)
[2023-05-10] MEDS: NEURONTIN CAP 300 MG PO SCH (13:51)
--- NOTE | 2023-05-10 19:49 | DR.OPNOTE ---
OP NOTE Pre-Op Diagnosis: Critical ischemia left leg Post-Op Diagnosis: same Procedure Date Date Of Procedure: 05/02/23 Procedure: PROCEDURE: DIAGNOSTIC AORTOGRAM, DIAGNOSTIC ARTERIOGRAM LEFT LEG, ATHERECTOMY AND DRUG COATED STENTING OF ENTIRE LEFT SUPERFICIAL FEMORAL ARTERY, ATHERECTOMY AND ANGIOPLASTY LEFT TIBIAL PERONEAL TRUNK NARRATIVE : The patient was taken to the operative suite and placed in the supine position. The right groin and entire left leg were prepped and draped in sterile fashion. The patient was given intravenous sedation supervised by myself. Time out for the procedure obtained. Ultrasound used to identify the right femoral artery and the skin overlying it infiltrated with 0.5% Marcaine. Ultrasound then used to guide puncture of the right femoral artery and a 0.012 inch guide wire was placed. Incision made over the guide wire at the skin edge with a # 11 knife blade and a micro sheath placed over the guide wire into the right femoral artery. The small guidewire exchanged for a 0.035 inch Advantage glide wire and the micro sheath exchanged for a 5 Fr vascular sheath. Patient given 5000 units of intravenous heparin. Omni catheter was placed over the guide wire into the aorta and diagnostic aortogram carried out with the power injector showing patent aorta and iliac arteries . Omni catheter was used to steer the guide wire down the left common iliac artery to the distal left external iliac artery . Omni catheter was exchanged for a [place] catheter and sequential arteriograms carried out of the left lower extremity showing completely occluded left superficial femoral artery with severe stenosis of the left tibial peroneal trunk. The 5 Fr sheath in the right groin then exchanged for a 7 Fr destination sheath which was parked in the distal left external iliac artery. [place] catheter and the guide wire were used to attempt to traverse the arteries of the right leg but I could not get the catheter across the occluded left superficial femoral artery . Ultrasound used to identify the left posterior tibial artery and the skin overlying it infiltrated with 0.5% Marcaine. Ultrasound used to guide puncture of the left posterior tibial artery and a 0.014 inch wire placed. Incision made over this guide wire at the skin edge with a number 11knife blade and a micro sheath placed over the guide wire into the posterior tibial artery. Arteriogram confirmed placement in the posterior tibial artery. The small wire exchanged for a 0.035 inch Advantage [place] wire and the micro sheath exchange for a 7 Fr vascular sheath .Using the [place] catheter and the 0.035 inch wire I was able to get across the complete occlusion of the entire left suoerficial femoral artery into the iliac artery of the left side. This was selective catheterization. 0.035 inch wire removed and exchanged for a 0.014 inch wire. Over this wire we placed the [place] atherectomy device and performed atherectomy of the entire left superficial femoral artery . The superficial femoral artery was pre-dilated with a 4mmx 220 mm [place] balloon. At this point we then placed two [place] 6mmx 150 mm drug-coated stents extending from the takeoff of the superficial femoral artery distally with 3 millimeters overlap and completed the lining of the superficial femoral artery using a distal based 6 mmx 80 mm [place] drug-coated stent. All of these stents then balloon dilated with a 5 mm [place] balloon. Th e patient still had significant stenosis of the left tibial peroneal trunk and this was balloon dilated with a 3 mmx 60 mm [place] [employer] [place] balloon. Post-procedure arteriogram showed excellent result. All wires and devices removed. The 7 Fr sheath in the right femoral artery was pulled back into the aorta and a 0.035 inch wire placed. The destination sheath exchanged for an Angioseal device used to close the puncture of the right femoral artery. Sheath removed from the left posterior tibkial artery and tibial band used to control bleeding at this puncture sitet .Dressing applied to the right groin. The patient taken to same day surgery in good condition with plan to sequentially deflate the tibial band over the left ankle puncture. Patietn had been given 3o mg of IV Protamin at the end of the case. Patient taken back to the floor. Type of Anesthesia: Local (0.5% marcaine ) Anesthesia Comment: plus MAC Findings: completely occluded left superficial femoral artery severe disease of the left tibial peroneal trunk Type of Fluids Used:: Lactated Ringers Total Amount of Fluid Infused:: 800cc Urine output: 200cc EBL: 200cc Hardware: Victoria stents 6mmx 150 mm x 2 , [place] 6mm x 80 cm stent Complications:: none Needle/Sponge Count:: correct Disposition/Condition: Pt. tolerated procedure without difficulty. Patient taken to the floor in stable condition.
[2023-05-11 06:35] LABS: BASOPHILS # (AUTO) 0.1 X10^3/uL (0.0-0.1); BASOPHILS % (AUTO) 0.9 % (0.2-1.0); EOSINOPHILS # (AUTO) 0.3 x10^3/uL (0.0-0.2); EOSINOPHILS % (AUTO) 3.4 % (0.9-2.9); LYMPHOCYTES # (AUTO) 1.3 X10^3/uL (1.3-2.9); LYMPHOCYTES % (AUTO) 16.8 % (21.0-51.0); MEAN CORPUSCULAR HEMOGLOBIN 30.3 pg (27.0-34.0); MEAN CORPUSCULAR HGB CONC 32.3 g/dL (33.0-35.0); MEAN CORPUSCULAR VOLUME 93.7 fL (80.0-100.0); MONOCYTES # (AUTO) 0.4 x10^3/uL (0.3-0.8); MONOCYTES % (AUTO) 4.8 % (0.0-13.0); NEUTROPHILS # (AUTO) 5.9 x10^3/uL (2.2-4.8); NEUTROPHILS % (AUTO) 74.1 % (42.0-75.0); PLATELET COUNT 253 X10^3/uL (150.0-450.0); RED BLOOD COUNT 3.31 X10^6/uL (3.5-5.4); RED CELL DISTRIBUTION WIDTH 18.7 % (11.6-16.5); WHITE BLOOD COUNT 7.9 X10^3/uL (3.6-10.0)
[2023-05-11 06:47] LABS: ALBUMIN 2.4 g/dL (3.4-5.0); CALCIUM 9.5 mg/dL (8.5-10.1); CARBON DIOXIDE 24.3 mmol/L (21-32); COR CA(FOR HYPOALB) 10.8 mg/dL (8.5-10.1); CREATININE 1.28 mg/dL (0.55-1.02); TOTAL PROTEIN 7.9 g/dL (6.4-8.2)
[2023-05-11 06:50] LABS: POTASSIUM 4.2 mmol/L (3.5-5.1)
--- NOTE | 2023-05-11 09:58 | PCM.PROG ---
Progress Note Progress Note for Day of Date of Exam: 05/11/23 Subjective Subjective: Pt is a 67y/o female with a PMH of PVD, CAD, DM, Anemia and multiple toe amputations admitted for acute cystitis, hypernatremia, JEAN, and s/p partial digit amputation of the second digit of left foot. This morning she is resting in bed. No acute events overnight. She is currently on antibiotics IV Invanz. Vascular surgery-Dr Villar and Podiatry-Dr Diaz following patient. Labs/imaging reviewed - Wbc 7.9, Hgb 10, Plt 253, Na:140, K 4.2, Creatinine 1.28, Glucose 131, - Urine culture prelim >100K gram negative rods, Blood culture pending, Wound culture pending Plan: follow Vascular and Podiatry recommendations. Restart Xarelto 24 hours after procedure. Continue Invanz, patient's prior Urine Cx has shown ESBL E.coli. Follow final cultures. Continue hydration with D5. Otherwise, continue with current treatment plan. Monitor AM labs/imaging. Past Medical Family Social History Allergies: Allergies No Known Allergies Allergy (Verified 05/09/23 10:04) Review of Systems ROS changes noted: see HPI Vital Signs and I&O's Vital Signs: Vital Signs Temperature 98.3 F Pulse Rate [Brachial] 68 Pulse Rate 80 Respiratory Rate 20 Blood Pressure [Left Arm] 160/63 O2 Sat by Pulse Oximetry 97 O2 Sat by Pulse Oximetry 100 Intake and Output: Intake & Output 05/08/23 05/09/23 05/10/23 05/11/23 23:59 23:59 23:59 23:59 Intake Total 1653 / 1653 2956 / 2956 220 / 220 Output Total 850 / 850 Balance 1653 / 1653 2106 / 2106 220 / 220 Physical Exam Oriented: Normal Eyes: Normal Ear: Normal Nose: Normal Throat: Normal Respiratory: Normal Cardiovascular: Normal : Normal Auscultation: Bowel Sounds: Normal Tenderness: Normal Musculoskeletal: Motor Deficit (right and left foot toe amputations present ) Psychiatric: Normal Mood Description: Calm Affect: Normal Speech Pattern: Unclear and Inappropriate Laboratory and Diagnostics 05/11/23 05:44 05/11/23 05:44 Labs: 05/09/23 10:44 Urine,Catheterized Urine Culture - Preliminary 05/10/23 11:25 Toe - Left Second Wound Gram Stain - Final Laboratory WBC 7.9 X10^3/uL (3.6-10.0) 05/11/23 05:44 RBC 3.31 X10^6/uL (3.5-5.4) L 05/11/23 05:44 Hgb 10.0 g/dL (12.0-16.0) L 05/11/23 05:44 Hct 31.0 % (36.0-47.0) L 05/11/23 05:44 MCV 93.7 fL (80.0-100.0) 05/11/23 05:44 MCH 30.3 pg (27.0-34.0) 05/11/23 05:44 MCHC 32.3 g/dL (33.0-35.0) L 05/11/23 05:44 RDW 18.7 % (11.6-16.5) H 05/11/23 05:44 Plt Count 253 X10^3/uL (150.0-450.0) 05/11/23 05:44 MPV 8.0 fL (7.4-11.0) 05/11/23 05:44 Neut % (Auto) 74.1 % (42.0-75.0) 05/11/23 05:44 Lymph % (Auto) 16.8 % (21.0-51.0) L 05/11/23 05:44 [place] % (Auto) 4.8 % (0.0-13.0) 05/11/23 05:44 Eos % (Auto) 3.4 % (0.9-2.9) H 05/11/23 05:44 Baso % (Auto) 0.9 % (0.2-1.0) 05/11/23 05:44 Neut # (Auto) 5.9 x10^3/uL (2.2-4.8) H 05/11/23 05:44 Lymph # (Auto) 1.3 X10^3/uL (1.3-2.9) 05/11/23 05:44 [place] # (Auto) 0.4 x10^3/uL (0.3-0.8) 05/11/23 05:44 Eos # (Auto) 0.3 x10^3/uL (0.0-0.2) H 05/11/23 05:44 Baso # (Auto) 0.1 X10^3/uL (0.0-0.1) 05/11/23 05:44 Absolute Nucleated RBC 0.1 /100WBC 05/11/23 05:44 Sodium 140 mmol/L (136-145) 05/11/23 05:44 Corrected Sodium 141 mmol/L (136-145) 05/11/23 05:44 Potassium 4.2 mmol/L (3.5-5.1) 05/11/23 05:44 Chloride 108 mmol/L (98-107) H 05/11/23 05:44 Carbon Dioxide 24.3 mmol/L (21-32) 05/11/23 05:44 BUN 19 mg/dL (7-18) H 05/11/23 05:44 Creatinine 1.28 mg/dL (0.55-1.02) H 05/11/23 05:44 Est GFR (MDRD) Af Amer 53 (>60) L 05/11/23 05:44 Est GFR (MDRD) Non-Af 44 (>60) L 05/11/23 05:44 Glucose 131 mg/dL (65-99) H 05/11/23 05:44 POC Glucose (mg/dL) 170 mg/dL (65-99) H 05/11/23 08:38 Lactic Acid 1.7 mmol/L (0.4-2.0) 05/09/23 10:32 Calcium 9.5 mg/dL (8.5-10.1) 05/11/23 05:44 Corrected Calcium 10.8 mg/dL (8.5-10.1) H 05/11/23 05:44 Magnesium 2.0 mg/dL (2.0-2.9) 05/10/23 04:50 Total Bilirubin 0.50 mg/dL (0.2-1.0) 05/11/23 05:44 AST 30 Units/L (15-37) 05/11/23 05:44 ALT 9 Units/L (12-78) L 05/11/23 05:44 Alkaline Phosphatase 120 Units/L (46-116) H 05/11/23 05:44 Troponin I High Sens 13.1 ng/L (4.0-60.0) 05/09/23 10:32 Total Protein 7.9 g/dL (6.4-8.2) 05/11/23 05:44 Albumin 2.4 g/dL (3.4-5.0) L 05/11/23 05:44 Globulin 5.5 g/dL (2.5-4.5) H 05/11/23 05:44 Albumin/Globulin Ratio 0.4 Ratio (1.1-2.1) L 05/11/23 05:44 Specimen Type Catherized urine 05/09/23 10:44 Urine Color Straw (YELLOW) 05/09/23 10:44 Urine Appearance Flocculent (CLEAR) 05/09/23 10:44 Urine pH 6.0 (5.0 - 8.0) 05/09/23 10:44 Ur Specific [place] 1.010 (1.000-1.030) 05/09/23 10:44 Urine Protein 2+ (NEGATIVE) 05/09/23 10:44 Urine Glucose (UA) 4+ (NEGATIVE) 05/09/23 10:44 Urine Ketones Negative (NEGATIVE) 05/09/23 10:44 Urine Blood 1+ (NEGATIVE) 05/09/23 10:44 Urine Nitrite Positive (NEGATIVE) 05/09/23 10:44 Urine Bilirubin Negative (NEGATIVE) 05/09/23 10:44 Urine Urobilinogen Normal (NORMAL) 05/09/23 10:44 Ur Leukocyte Esterase 2+ (NEGATIVE) 05/09/23 10:44 Urine RBC 3-5 /HPF (0-3) A 05/09/23 10:44 Urine WBC Tntc /HPF (0-5) A 05/09/23 10:44 Ur Squamous Epith Cells Few /HPF (NEGATIVE) 05/09/23 10:44 Urine Bacteria 3+ /HPF (NEGATIVE) 05/09/23 10:44 Ur Culture Indicated? Yes/culture set up 05/09/23 10:44 Urine Opiates Screen Negative (NEG=<300) 05/09/23 10:44 Urine Methadone Screen Negative (NEG=<300) 05/09/23 10:44 Ur Barbiturates Screen Negative (NEG=<200) 05/09/23 10:44 Ur Phencyclidine Scrn Negative (NEG=<25) 05/09/23 10:44 Ur Amphetamines Screen Negative (NEG=<1000) 05/09/23 10:44 U Benzodiazepines Scrn Negative (NEG=<200) 05/09/23 10:44 Urine Cocaine Screen Negative (NEG=<300) 05/09/23 10:44 U Marijuana (THC) Screen Negative (NEG=<50) 05/09/23 10:44 Plan (1) Gangrene of toe of left foot: Status: Acute (2) Acute UTI: Status: Acute (3) Altered mental status: Status: Acute Qualifiers: Altered mental status type: unspecified Qualified Code(s): R41.82 - Altered mental status, unspecified (4) Atherosclerosis of [place] arteries of extremities with rest pain, left leg: Status: Acute (5) Atherosclerosis of [place] arteries of extremities with rest pain, right leg: Status: Acute (6) Cellulitis of left foot: Status: Acute
--- NOTE | 2023-05-11 12:51 | NOTE.SOAP ---
Soap Note Note for Day of Date of Exam: 05/11/23 Subjective Data Subjective Data: Patient POD1 s/p L 2nd digit amputation, patient resting comfortably. No complaints Objective Data Objective Data: Dressings c/d/i without strike through to the LLE Assessment Assessment: 67F with peripheral arterial disease and gangrene of left 2nd toe s/p Left 2nd toe amputation (DOS: 05/10/23) Plan Plan: Patient was seen bedside this afternoon, she is doing well. Okay for discharge from a podiatry standpoint. Patient okay for WBAT to the LLE in surgical shoe. Dressed with xeroform DSD. Dressing change in 1 week in care facility. She is to follow up with Dr. Diaz in his office next week or sooner if any problems arise.
[2023-05-11] MEDS: XARELTO PO SCH (14:43)
[2023-05-12 04:06] VITALS: RESP 18
[2023-05-12 06:09] LABS: BASOPHILS % (AUTO) 0.3 % (0.2-1.0); EOSINOPHILS # (AUTO) 0.2 x10^3/uL (0.0-0.2); EOSINOPHILS % (AUTO) 3.4 % (0.9-2.9); HEMATOCRIT 28.6 % (36.0-47.0); HEMOGLOBIN 9.2 g/dL (12.0-16.0); LYMPHOCYTES % (AUTO) 14.7 % (21.0-51.0); MEAN CORPUSCULAR HGB CONC 32.3 g/dL (33.0-35.0); MEAN CORPUSCULAR VOLUME 92.8 fL (80.0-100.0); MEAN PLATELET VOLUME 7.7 fL (7.4-11.0); MONOCYTES # (AUTO) 0.5 x10^3/uL (0.3-0.8); MONOCYTES % (AUTO) 7.4 % (0.0-13.0); NEUTROPHILS # (AUTO) 5.2 x10^3/uL (2.2-4.8); NEUTROPHILS % (AUTO) 74.2 % (42.0-75.0); PLATELET COUNT 260 X10^3/uL (150.0-450.0); RED BLOOD COUNT 3.08 X10^6/uL (3.5-5.4); RED CELL DISTRIBUTION WIDTH 18.7 % (11.6-16.5)
[2023-05-12 06:22] LABS: ALBUMIN 2.1 g/dL (3.4-5.0); CALCIUM 9.3 mg/dL (8.5-10.1); CARBON DIOXIDE 22.5 mmol/L (21-32); COR CA(FOR HYPOALB) 10.8 mg/dL (8.5-10.1); CREATININE 1.34 mg/dL (0.55-1.02); POTASSIUM 4.1 mmol/L (3.5-5.1)
--- NOTE | 2023-05-12 06:28 | NOTE.SOAP ---
Soap Note Note for Day of Date of Exam: 05/12/23 Subjective Data Subjective Data: Patient POD2 s/p L 2nd digit amputation, patient resting comfortably. No complaints Objective Data Objective Data: Dressings c/d/i without strike through to the LLE Assessment Assessment: 67F with peripheral arterial disease and gangrene of left 2nd toe s/p Left 2nd toe amputation (DOS: 05/10/23) Plan Plan: Patient was seen bedside this am, she is doing well. Okay for discharge from a podiatry standpoint. Patient okay for WBAT to the LLE in surgical shoe. Dressed with xeroform DSD. Dressing change in 1 week in care facility. She is to follow up with Dr. Diaz in his office next week or sooner if any problems arise.
[2023-05-12 12:04] VITALS: BP 137/64; PULSE 62; TEMP 97.5; O2SAT 100
--- NOTE | 2023-05-15 13:06 | W.DIS.FURT ---
Summary of Discharge Discharge Summary of Date Date of Exam: 05/12/23 Admission Date Date of Admission: 05/09/23 Admission Diagnosis Patient Problems (Updated 05/10/23 @ 09:13 by Ramila Grajeda) Acute UTI (Acute) N39.0 Altered mental status (Acute) R41.82 Hospital Course: Pt is a 67 y/o female with a PMH of PVD, CAD, DM, Anemia and multiple toe amputations admitted for acute cystitis, hypernatremia, JEAN, and s/p partial digit amputation of the second digit of left foot. Her hospital/treatment course included IVF and antibiotics IV Invanz. Her urine culture positive for E coli ESBL. Patient responded well to treatments. She will be followed outpatient by vascular surgery-Dr Villar and Podiatry-Dr Diaz. Vital Signs: Vital Signs (72 hours) 05/10/23 08:45 05/10/23 10:50 05/10/23 15:29 Temperature Pulse Rate 76 Pulse Rate [Brachial] Respiratory Rate 17 18 Blood Pressure 172/75 Blood Pressure [Left Arm] O2 Sat by Pulse Oximetry 92 L Oxygen Delivery Method Nasal Cannula Nasal Cannula Oxygen Flow Rate 2 FIO2% 05/10/23 16:29 05/10/23 16:00 05/10/23 11:40 Temperature 98.0 F 97.8 F Pulse Rate Pulse Rate [Brachial] 88 74 Respiratory Rate 18 18 20 Blood Pressure Blood Pressure [Left Arm] 196/79 157/67 O2 Sat by Pulse Oximetry 100 96 Oxygen Delivery Method Nasal Cannula Oxygen Flow Rate 2 FIO2% 05/10/23 11:55 05/10/23 12:10 05/10/23 12:25 Temperature 98.8 F 98.7 F 98.7 F Pulse Rate Pulse Rate [Brachial] 74 71 76 Respiratory Rate 20 20 20 Blood Pressure Blood Pressure [Left Arm] 144/67 155/68 154/70 O2 Sat by Pulse Oximetry 94 L 95 96 Oxygen Delivery Method Oxygen Flow Rate FIO2% 05/10/23 12:40 05/10/23 13:40 05/10/23 14:40 Temperature 98.2 F 99.4 F 97.6 F Pulse Rate Pulse Rate [Brachial] 77 79 82 Respiratory Rate 20 20 20 Blood Pressure Blood Pressure [Left Arm] 143/67 141/61 161/66 O2 Sat by Pulse Oximetry 99 98 99 Oxygen Delivery Method Oxygen Flow Rate FIO2% 05/10/23 15:40 05/10/23 21:13 05/10/23 19:00 Temperature 98.0 F Pulse Rate Pulse Rate [Brachial] 88 Respiratory Rate 18 18 Blood Pressure Blood Pressure [Left Arm] 196/79 O2 Sat by Pulse Oximetry 100 Oxygen Delivery Method Nasal Cannula Oxygen Flow Rate 2 FIO2% 05/10/23 20:00 05/10/23 22:13 05/11/23 00:00 Temperature 98.7 F 98.8 F Pulse Rate Pulse Rate [Brachial] 88 84 Respiratory Rate 20 18 20 Blood Pressure Blood Pressure [Left Arm] 128/55 124/58 O2 Sat by Pulse Oximetry 98 98 Oxygen Delivery Method Nasal Cannula Nasal Cannula Oxygen Flow Rate 2 2 FIO2% 05/10/23 20:45 05/10/23 20:45 05/11/23 03:57 Temperature 98.3 F Pulse Rate 73 Pulse Rate [Brachial] 68 Respiratory Rate 20 Blood Pressure Blood Pressure [Left Arm] 160/63 O2 Sat by Pulse Oximetry 92 L 100 Oxygen Delivery Method Nasal Cannula Nasal Cannula Oxygen Flow Rate 2 2 FIO2% 28 05/11/23 09:20 05/11/23 09:20 05/11/23 07:00 Temperature Pulse Rate 80 Pulse Rate [Brachial] Respiratory Rate Blood Pressure Blood Pressure [Left Arm] O2 Sat by Pulse Oximetry 97 Oxygen Delivery Method Nasal Cannula Nasal Cannula Oxygen Flow Rate 2 2 FIO2% 28 05/11/23 08:00 05/11/23 12:00 05/11/23 08:00 Temperature 97.5 F L 97.1 F L 97.5 F L Pulse Rate Pulse Rate [Brachial] 71 67 71 Respiratory Rate 18 16 18 Blood Pressure Blood Pressure [Left Arm] 149/67 166/71 149/67 O2 Sat by Pulse Oximetry 100 100 100 Oxygen Delivery Method Nasal Cannula Nasal Cannula Nasal Cannula Oxygen Flow Rate 2 2 2 FIO2% 05/11/23 12:00 05/11/23 16:00 05/12/23 04:06 Temperature 97.1 F L 97.6 F Pulse Rate Pulse Rate [Brachial] 67 71 Respiratory Rate 16 20 18 Blood Pressure Blood Pressure [Left Arm] 166/71 169/74 O2 Sat by Pulse Oximetry 100 100 Oxygen Delivery Method Nasal Cannula Nasal Cannula Oxygen Flow Rate 2 2 FIO2% 05/11/23 20:00 05/11/23 19:00 05/12/23 00:00 Temperature 98.5 F 98.1 F Pulse Rate Pulse Rate [Brachial] 87 91 H Respiratory Rate 20 22 Blood Pressure Blood Pressure [Left Arm] 155/79 104/52 O2 Sat by Pulse Oximetry 97 96 Oxygen Delivery Method Nasal Cannula Nasal Cannula Nasal Cannula Oxygen Flow Rate 2 2 2 FIO2% 05/11/23 21:25 05/11/23 21:25 05/12/23 04:00 Temperature 98.4 F Pulse Rate 70 Pulse Rate [Brachial] 72 Respiratory Rate 20 Blood Pressure Blood Pressure [Left Arm] 142/63 O2 Sat by Pulse Oximetry 95 99 Oxygen Delivery Method Nasal Cannula Nasal Cannula Oxygen Flow Rate 2 2 FIO2% 28 05/12/23 05:06 05/12/23 05:00 05/12/23 08:00 Temperature 97.9 F Pulse Rate Pulse Rate [Brachial] 71 Respiratory Rate 18 18 Blood Pressure Blood Pressure [Left Arm] 126/59 O2 Sat by Pulse Oximetry 99 Oxygen Delivery Method Nasal Cannula Nasal Cannula Oxygen Flow Rate 2 2 FIO2% 05/12/23 08:56 05/12/23 08:56 05/12/23 07:00 Temperature Pulse Rate Pulse Rate [Brachial] Respiratory Rate Blood Pressure Blood Pressure [Left Arm] O2 Sat by Pulse Oximetry 95 Oxygen Delivery Method Nasal Cannula Nasal Cannula Oxygen Flow Rate 2 2 FIO2% 28 05/12/23 12:00 Temperature 97.5 F L Pulse Rate Pulse Rate [Brachial] 62 Respiratory Rate 18 Blood Pressure Blood Pressure [Left Arm] 137/64 O2 Sat by Pulse Oximetry 100 Oxygen Delivery Method Nasal Cannula Oxygen Flow Rate 2 FIO2% Labs: Laboratory Last Values WBC 7.0 X10^3/uL (3.6-10.0) 05/12/23 05:30 RBC 3.08 X10^6/uL (3.5-5.4) L 05/12/23 05:30 Hgb 9.2 g/dL (12.0-16.0) L 05/12/23 05:30 Hct 28.6 % (36.0-47.0) L 05/12/23 05:30 MCV 92.8 fL (80.0-100.0) 05/12/23 05:30 MCH 30.0 pg (27.0-34.0) 05/12/23 05:30 MCHC 32.3 g/dL (33.0-35.0) L 05/12/23 05:30 RDW 18.7 % (11.6-16.5) H 05/12/23 05:30 Plt Count 260 X10^3/uL (150.0-450.0) 05/12/23 05:30 MPV 7.7 fL (7.4-11.0) 05/12/23 05:30 Neut % (Auto) 74.2 % (42.0-75.0) 05/12/23 05:30 Lymph % (Auto) 14.7 % (21.0-51.0) L 05/12/23 05:30 [place] % (Auto) 7.4 % (0.0-13.0) 05/12/23 05:30 Eos % (Auto) 3.4 % (0.9-2.9) H 05/12/23 05:30 Baso % (Auto) 0.3 % (0.2-1.0) 05/12/23 05:30 Neut # (Auto) 5.2 x10^3/uL (2.2-4.8) H 05/12/23 05:30 Lymph # (Auto) 1.0 X10^3/uL (1.3-2.9) L 05/12/23 05:30 [place] # (Auto) 0.5 x10^3/uL (0.3-0.8) 05/12/23 05:30 Eos # (Auto) 0.2 x10^3/uL (0.0-0.2) 05/12/23 05:30 Baso # (Auto) 0.0 X10^3/uL (0.0-0.1) 05/12/23 05:30 Absolute Nucleated RBC 0.1 /100WBC 05/12/23 05:30 Sodium 141 mmol/L (136-145) 05/12/23 05:30 Corrected Sodium 145 mmol/L (136-145) 05/12/23 05:30 Potassium 4.1 mmol/L (3.5-5.1) 05/12/23 05:30 Chloride 108 mmol/L (98-107) H 05/12/23 05:30 Carbon Dioxide 22.5 mmol/L (21-32) 05/12/23 05:30 BUN 18 mg/dL (7-18) 05/12/23 05:30 Creatinine 1.34 mg/dL (0.55-1.02) H 05/12/23 05:30 Est GFR (MDRD) Af Amer 51 (>60) L 05/12/23 05:30 Est GFR (MDRD) Non-Af 42 (>60) L 05/12/23 05:30 Glucose 260 mg/dL (65-99) H 05/12/23 05:30 POC Glucose (mg/dL) 269 mg/dL (65-99) H 05/12/23 05:23 Lactic Acid 1.7 mmol/L (0.4-2.0) 05/09/23 10:32 Calcium 9.3 mg/dL (8.5-10.1) 05/12/23 05:30 Corrected Calcium 10.8 mg/dL (8.5-10.1) H 05/12/23 05:30 Magnesium 2.0 mg/dL (2.0-2.9) 05/10/23 04:50 Total Bilirubin 0.40 mg/dL (0.2-1.0) 05/12/23 05:30 AST 13 Units/L (15-37) L 05/12/23 05:30 ALT 7 Units/L (12-78) L 05/12/23 05:30 Alkaline Phosphatase 111 Units/L (46-116) 05/12/23 05:30 Troponin I High Sens 13.1 ng/L (4.0-60.0) 05/09/23 10:32 Total Protein 7.0 g/dL (6.4-8.2) 05/12/23 05:30 Albumin 2.1 g/dL (3.4-5.0) L 05/12/23 05:30 Globulin 4.9 g/dL (2.5-4.5) H 05/12/23 05:30 Albumin/Globulin Ratio 0.4 Ratio (1.1-2.1) L 05/12/23 05:30 Specimen Type Catherized urine 05/09/23 10:44 Urine Color Straw (YELLOW) 05/09/23 10:44 Urine Appearance Flocculent (CLEAR) 05/09/23 10:44 Urine pH 6.0 (5.0 - 8.0) 05/09/23 10:44 Ur Specific [place] 1.010 (1.000-1.030) 05/09/23 10:44 Urine Protein 2+ (NEGATIVE) 05/09/23 10:44 Urine Glucose (UA) 4+ (NEGATIVE) 05/09/23 10:44 Urine Ketones Negative (NEGATIVE) 05/09/23 10:44 Urine Blood 1+ (NEGATIVE) 05/09/23 10:44 Urine Nitrite Positive (NEGATIVE) 05/09/23 10:44 Urine Bilirubin Negative (NEGATIVE) 05/09/23 10:44 Urine Urobilinogen Normal (NORMAL) 05/09/23 10:44 Ur Leukocyte Esterase 2+ (NEGATIVE) 05/09/23 10:44 Urine RBC 3-5 /HPF (0-3) A 05/09/23 10:44 Urine WBC Tntc /HPF (0-5) A 05/09/23 10:44 Ur Squamous Epith Cells Few /HPF (NEGATIVE) 05/09/23 10:44 Urine Bacteria 3+ /HPF (NEGATIVE) 05/09/23 10:44 Ur Culture Indicated? Yes/culture set up 05/09/23 10:44 Urine Opiates Screen Negative (NEG=<300) 05/09/23 10:44 Urine Methadone Screen Negative (NEG=<300) 05/09/23 10:44 Ur Barbiturates Screen Negative (NEG=<200) 05/09/23 10:44 Ur Phencyclidine Scrn Negative (NEG=<25) 05/09/23 10:44 Ur Amphetamines Screen Negative (NEG=<1000) 05/09/23 10:44 U Benzodiazepines Scrn Negative (NEG=<200) 05/09/23 10:44 Urine Cocaine Screen Negative (NEG=<300) 05/09/23 10:44 U Marijuana (THC) Screen Negative (NEG=<50) 05/09/23 10:44 Tissue Pathology See comment. 05/10/23 11:26 Reason For Visit: ACUTE UTI, ALTERED MENTAL STATUS Discharge Date Discharge Date: 05/12/23 Discharge Diagnosis All Active Problems (Updated 05/10/23 @ 09:13 by Ramila Grajeda) Cellulitis of left foot (Acute) Acute UTI (Acute) Altered mental status (Acute) Gangrene of toe of left foot (Acute) Atherosclerosis of [place] arteries of extremities with rest pain, right leg (Acute) Atherosclerosis of [place] arteries of extremities with rest pain, left leg (Acute) Personal history of cerebrovascular accident with current residual effects (Acute) Chronic ischemic heart disease, unspecified (Acute) Essential (primary) hypertension (Acute) Osteomyelitis of second toe of right foot (Acute) Type 2 diabetes mellitus without complications (Acute) Depression (Acute) Plan of Treatment: Continue with present treatment and follow up plan. Pt is to keep follow up appointment as instructed and take medications as ordered. Discharge Medications Discharge Medications: No Known Allergies Allergy (Verified 05/09/23 10:04) CONTINUE taking the following medications cyanocobalamin (vitamin B-12) 1,000 mcg/mL injection kit 1,000 mcg IM MONTHLY 05/09/23 [History] dextrose 40 % oral gel 1 ea PO PRN PRN 05/09/23 [History] fluticasone 250 mcg-salmeterol 50 mcg/dose blistr powdr for inhalation (Advair Diskus) 1 inh inhalation BID 05/09/23 [History] glucagon 1 mg solution for injection 1 mg IM PRN PRN 05/09/23 [History] lorazepam 1 mg tablet 1 mg PO Q8H PRN Anxiety 05/09/23 [History] romosozumab-aqqg 105 mg/1.17 mL subcutaneous syringe (Evenity) See Rx Instructio ns .Route .COMPLEX 05/09/23 [History] New Prescriptions ertapenem 1 gram solution for injection 1 g IV QDAY #10 ea 05/12/23 [Rx] Discharge Plan Discharge Plan Hospital Course: Pt is a 67 y/o female with a PMH of PVD, CAD, DM, Anemia and multiple toe amputations admitted for acute cystitis, hypernatremia, JEAN, and s/p partial digit amputation of the second digit of left foot. Her hospital/treatment course included IVF and antibiotics IV Invanz. Her urine culture positive for E coli ESBL. Patient responded well to treatments. She will be followed outpatient by vascular surgery-Dr Villar and Podiatry-Dr Diaz. Patient Disposition: [facility] Condition: Stable Health Concerns: Post Hospitalization: new medications and changes needed to prevent readmission or further decline. Pt educated and given instructions on all concerns. Care Plan Goals: Problem: Pain/Alteration in Comfort Goal: Improve/ Resolve Pain; Achieve Pain Tolerance Instructions: Take pain medications as prescribed. Contact your primary care provider if your pain is unrelieved or worsens. Follow up with primary care provider as directed. Plan of Treatment: Continue with present treatment and follow up plan. Pt is to keep follow up appointment as instructed and take medications as ordered. Prescriptions: New ertapenem 1 gram Recon Soln 1 g IV QDAY Qty: 10 0RF No Action atorvastatin 40 mg tablet 40 mg PO HS methocarbamol 500 mg tablet 500 mg PO HS clopidogrel 75 mg tablet 75 mg PO QDAY gabapentin 800 mg tablet 800 mg PO TID rivastigmine tartrate 4.5 mg capsule 4.5 mg PO BID lisinopril 2.5 mg tablet 2.5 mg PO QDAY metoprolol tartrate 25 mg tablet 12.5 mg PO BID duloxetine 30 mg capsule,delayed release(DR/EC) 30 mg PO BID Myrbetriq 50 mg tablet extended release 24 hr 50 mg PO QDAY Jardiance 25 mg tablet 25 mg PO QDAY aspirin 81 mg Tablet,Chewable 81 mg PO QDAY docusate sodium [Colace] 100 mg Capsule 100 mg PO BID diphenhydramine HCl 25 mg Capsule 25 mg PO TID PRN oxycodone-acetaminophen 5-325 mg Tablet 1 tab PO Q6H PRN polyethylene glycol 3350 17 gram Powder In Packet 17 g PO DAILY calcium carbonate 600 mg calcium (1,500 mg) Tablet 600 mg PO BID melatonin 5 mg Tablet 10 mg PO HS Lantus U-100 Insulin 100 unit/mL Cartridge 10 unit SUBCUT QAM insulin glargine [Lantus Solostar U-100 Insulin] 100 unit/mL (3 mL) Insulin Pen 20 unit SUBCUT QHS insulin lispro 100 unit/mL Solution 1 sliding scale dose SUBCUT USEASDIRECTD Rx Instructions: per sliding scale Xarelto 2.5 mg tablet 2.5 mg PO BID Qty: 180 0RF olanzapine 5 mg tablet 10 mg PO HS cholecalciferol (vitamin D3) [Vitamin D3] 125 mcg (5,000 unit) Tablet 125 mcg PO QDAY Biofreeze (menthol) 4 % Gel 1 applic TOPICAL DAILY PRN doxycycline hyclate 100 mg capsule 100 mg PO QDAY MDD 100mg Qty: 14 0RF Rx Instructions: Take 1 tab daily x 14 days - started on 05/05/23 fluticasone propion-salmeterol [Advair Diskus] 250-50 mcg/dose Blister With Device 1 inh INHALATION BID dextrose [Insta-Glucose] 40 % Gel 1 ea PO PRN PRN lorazepam 1 mg tablet 1 mg PO Q8H PRN (Reason: Anxiety) GlucaGen 1 mg Recon Soln 1 mg IM PRN PRN cyanocobalamin (vitamin B-12) 1,000 mcg/mL Kit 1,000 mcg IM MONTHLY Evenity 105 mg/1.17 mL Syringe See Rx Instructions .ROUTE .COMPLEX Rx Instructions: inject 2 syringes subcutaneously for a total of 210mg/2.34ml once monthly on the Orders to Discharge Patient Discharge Orders: Discharge (Routine); Ordered 05/12/23 Ordered By: Ramila Grajeda Follow ups/Referrals Follow ups/Referrals: Bossman Diaz [CONSULTING PHYSICIAN] - 05/16/23 3:30 pm Instructions Instructions: Living With an Amputation, Phantom Limb Pain, Gangrene, Traumatic Toe Amputation, Diabetic Neuropathy, Preventing Diabetes Mellitus Complications Stand Alone Forms: Excuse From Work or School, Post Hospital Follow Up Care
== END 2023-05-12 13:38 ==
LOC: ER 10:03 → MED/SURG 10:03
PROVIDERS: ADMIT Internal Medicine; ATTEND Internal Medicine

== ENCOUNTER 2023-06-19 10:14 | Inpatient (IN) ==
[2023-06-19 14:19] VITALS: BMI 31.7
[2023-06-19] MEDS: NEURONTIN TAB 600 MG PO SCH (14:30)
[2023-06-19] MEDS: PERCOCET TAB 5/325 MG PO PRN (14:31)
[2023-06-19] MEDS: LR 1,000 ML IV 1,000 ML IV SCH (15:27)
[2023-06-19 15:48] LABS: CALCIUM 9.1 mg/dL (8.5-10.1); CARBON DIOXIDE 26.4 mmol/L (21-32); COR CA(FOR HYPOALB) 9.9 mg/dL (8.5-10.1); CREATININE 1.96 mg/dL (0.55-1.02); POTASSIUM 4.5 mmol/L (3.5-5.1); TOTAL PROTEIN 8.1 g/dL (6.4-8.2)
[2023-06-19] MEDS: PROVENTIL NEB TX 0.083% 2.5MG/ 3ML NEB SCH (20:18)
[2023-06-19] MEDS: MIRALAX POWDER (1 DOSE 17 G) PO SCH (20:34)
[2023-06-19] MEDS: LOPRESSOR TAB 25 MG PO SCH (20:35)
[2023-06-19] MEDS: COLACE CAP 100 MG PO SCH (20:35)
[2023-06-20] MEDS: BUTT CREAM (COMPOUND) TOP PRN (00:09)
--- NOTE | 2023-06-20 07:17 | RAD ---
EXAM:Portable chestHISTORY:Preop vascular surgeryCOMPARISON:05/09/2023FINDINGS:Hea rt size is normal. Adriana are normal. Lung ball are free of acute infiltrates. Mild bibasilar chronic interstitial lung changes are present. No pleural effusions are identified. Bony thorax is unremarkable.IMPRESSION:No acute infiltratesBibasilar mild chronic interstitial lung changesTHIS IS AN ELECTRONICALLY VERIFIED FINAL REPORT06/20/2023 7:14 AM - Electronically signed by Cayden Saunders MD
[2023-06-20] MEDS ORDERED: PHARMACY CONSULT LTC MEDICATIONS XX SCH (10:00)
[2023-06-20] MEDS: ASPIRIN 81 MG CHEWTAB PO SCH (10:33)
[2023-06-20] MEDS: CYMBALTA PO SCH (10:34)
[2023-06-20] MEDS: LIPITOR TAB 40 MG PO SCH (10:34)
[2023-06-20] MEDS: EPHEDRINE SULFATE INJ ONE ×2 (12:00→13:09)
[2023-06-20] MEDS: NS 1,000 ML IV 1,000 ML ONE (12:43)
[2023-06-20] MEDS: ANCEF VIAL 1 GRAM ONE (12:48)
[2023-06-20] MEDS: NS 100 ML IV 100 ML ONE (12:48)
[2023-06-20] MEDS: PEPCID 20 MG VIAL ONE (12:59)
[2023-06-20] MEDS: FENTANYL VIAL INJ 100 mcg ONE (12:59)
[2023-06-20] MEDS ORDERED: XYLOCAINE 2 % (PLAIN) ONE (12:59)
[2023-06-20] MEDS: KETAMINE 50 MG/5 ML-NACL SYRNG ONE (12:59)
[2023-06-20] MEDS: ZOFRAN INJ 4 MG VIAL ONE (12:59)
[2023-06-20] MEDS: VERSED ONE (12:59)
[2023-06-20] MEDS: DIPRIVAN VIAL 20 ML ONE (12:59)
[2023-06-20] MEDS: NEO-SYNEPHRINE INJ ONE (13:16)
[2023-06-20] MEDS: HEPARIN SODIUM IN D5W 50,000 UNITS/1,000 ML BAG ONE (13:18)
[2023-06-20] MEDS: VISIPAQUE 100 ML ONE (13:18)
[2023-06-20] MEDS: MARCAINE 0.5% ONE (13:18)
[2023-06-20] MEDS: VISIPAQUE 50 ML ONE (13:18)
[2023-06-20] MEDS: HEPARIN SODIUM INJ 5000 UNITS ONE (13:23)
--- NOTE | 2023-06-20 13:50 | NOTE.SOAP ---
Soap Note Note for Day of Date of Exam: 06/20/23 Subjective Data Subjective Data: 67 year old female well known to our services for multiple ischemic toes. She presented to Dr. Diaz's office yesterday with painful necrotic 3rd digit of the right foot and a non healing wound and necrotic partial 2nd toe to the left. foot. We discussed all options with her and feel it is best she undergo a transmetatarsal of the right foot due to her poor blood flow and already lost 2 and going on 3 digits. She denies any constitutional symptoms Objective Data Objective Data: Amputated 1st and 2nd digit right foot. Necrotic 3rd digit of the right foot. Unstaggeable deep tissue injury to right heel Necrotic tuft of partial 2nd digit amputation of the left. Non healing fibrotic ulcer on the left foot. Nonpalpable pedal pulses. Feet are cold to touch. Gross epicritic and protective sensation are intact Assessment Assessment: 67 year old female with critical limb ischemic and gangrene of the right foot Plan Plan: Patient was seen today and yesterday in office. The plan was discussed in full detail with the patient and her daughter yesterday in office. All risks and benefits of surgical vs conservative treatment were discussed in full detail. Patient and daughter understand and wish to proceed with the amputation. Patient is currently in the operating room with Dr. Villar for vascular intervention. Plan to take patient to surgery tomorrow for a transmetatarsal amputation. Patie nt can eat today after vascular procedure but must be NPO after midnight tonight.
[2023-06-20] MEDS: PROTAMINE SULFATE 50 MG VIAL ONE (13:57)
--- NOTE | 2023-06-20 14:22 | OR.IMMED ---
IMMEDIATE POST-OP NOTE Immediate Post-Op Note Date of surgery/procedure: 06/20/23 Pre-Op Diagnosis: critical ischemia left leg Post-Op Diagnosis: same Procedure: diagnostic aortogram, arteriogram of the right leg, arteriogram of the left leg , drug coated balloon angioplasty of the right common femoral artery Surgeon/Store Receiver: Jian Findings: complete oclusion of 4 cm segment of the right common femoral artery Estimated Blood Loss: 100 cc Complications: none Progress Notes: Will return patient to the floor. Begin her diet. Observe for any bleeding. Patient for amputation of toes possible transmetatarsaal amputation right foot tomorrow
[2023-06-20] MEDS: DILAUDID INJ ONE (15:25)
[2023-06-20] MEDS: XARELTO PO SCH (21:32)
[2023-06-20] MEDS: NovoLIN R (or HumuLIN R) SC PRN (21:38)
[2023-06-21] MEDS ORDERED: ATIVAN TAB 1 MG ONE ×2 (00:32→01:54)
[2023-06-21] MEDS: ATIVAN TAB 1 MG PO ONE ×2 (00:40→02:05)
[2023-06-21] MEDS: HIBICLENS WASH EXT ONE (05:35)
[2023-06-21 06:21] LABS: BASOPHILS # (AUTO) 0.1 X10^3/uL (0.0-0.1); BASOPHILS % (AUTO) 0.6 % (0.2-1.0); EOSINOPHILS # (AUTO) 0.1 x10^3/uL (0.0-0.2); HEMATOCRIT 34.8 % (36.0-47.0); HEMOGLOBIN 11.2 g/dL (12.0-16.0); LYMPHOCYTES # (AUTO) 1.3 X10^3/uL (1.3-2.9); LYMPHOCYTES % (AUTO) 15.5 % (21.0-51.0); MEAN CORPUSCULAR HEMOGLOBIN 28.6 pg (27.0-34.0); MEAN CORPUSCULAR HGB CONC 32.1 g/dL (33.0-35.0); MEAN CORPUSCULAR VOLUME 89.3 fL (80.0-100.0); MONOCYTES # (AUTO) 0.4 x10^3/uL (0.3-0.8); MONOCYTES % (AUTO) 4.9 % (0.0-13.0); NEUTROPHILS # (AUTO) 6.8 x10^3/uL (2.2-4.8); PLATELET COUNT 324 X10^3/uL (150.0-450.0); RED CELL DISTRIBUTION WIDTH 20.3 % (11.6-16.5); WHITE BLOOD COUNT 8.7 X10^3/uL (3.6-10.0)
[2023-06-21 06:33] LABS: CALCIUM 9.6 mg/dL (8.5-10.1); CARBON DIOXIDE 26.3 mmol/L (21-32); CREATININE 1.65 mg/dL (0.55-1.02)
[2023-06-21 06:50] LABS: ANISOCYTOSIS 1+; PLATELET MORPHOLOGY COMMENT NORMAL (NORMAL)
[2023-06-21] MEDS: EXELON PO SCH (10:00)
--- NOTE | 2023-06-21 12:20 | NOTE.SOAP ---
Soap Note Note for Day of Date of Exam: 06/21/23 Subjective Data Subjective Data: POD # 1 after drug coated balloon angioplasty of completely occluded right common femoral artery. Right foot warm. Patient became confused last night and pulled out her Ahuja and her IVFs Objective Data Temperature: 97.4 F Pulse Rate: 98 Respiratory Rate: 20 Blood Pressure: 139/63 O2 Sat by Pulse Oximetry: 92 Objective Data: Needle stick left groin healed , no hematoma . Right foot warm , Creatinine decreased to 1.65 Assessment Assessment: S/P revascularization right leg with angioplasty right common femoral artery Plan Plan: To OR today for Dr. Diaz to perform right transmetarsal amputation. Probably d/c back to SNF tomorrow.
[2023-06-21] MEDS: NS 1,000 ML IV 1,000 ML ONE (13:45)
[2023-06-21] MEDS: ANCEF VIAL 1 GRAM ONE (13:49)
[2023-06-21] MEDS: NS 100 ML IV 100 ML ONE (13:49)
[2023-06-21] MEDS: BETADINE SOLN ONE (13:52)
[2023-06-21] MEDS ORDERED: NEO-SYNEPHRINE INJ ONE (14:00)
[2023-06-21] MEDS: FENTANYL VIAL INJ 100 mcg ONE (14:00)
[2023-06-21] MEDS: DIPRIVAN VIAL 20 ML ONE (14:00)
[2023-06-21] MEDS ORDERED: ULTANE GAS IN ONE (14:00)
[2023-06-21] MEDS: KETAMINE HCL ONE (14:00)
[2023-06-21] MEDS: MARCAINE 0.25% INJ ONE (14:19)
[2023-06-21] MEDS ORDERED: BENADRYL INJ 50 MG VIAL IVP PRN (14:57)
[2023-06-21] MEDS ORDERED: REGLAN INJ 10 MG VIAL IVP PRN (14:57)
[2023-06-21] MEDS ORDERED: ZOFRAN INJ 4 MG VIAL IVP PRN (14:57)
[2023-06-21] MEDS ORDERED: DILAUDID INJ IVP PRN (14:57)
[2023-06-21] MEDS ORDERED: BARHEMSYS INJ IVP PRN (14:57)
[2023-06-21] MEDS: ZyPREXA TAB 5 MG PO SCH (21:41)
[2023-06-21] MEDS: ATIVAN TAB 0.5 MG PO PRN (23:41)
--- NOTE | 2023-06-21 23:46 | DR.OPNOTE ---
OP NOTE Pre-Op Diagnosis: critical ischemia right leg Post-Op Diagnosis: same, see findings Procedure Date Date Of Procedure: 06/20/23 Procedure: PROCEDURE: DIAGNOSTIC AORTOGRAM, DIAGNOSTIC ARTERIOGRAM RIGHT LEG ,DIAGNOSTIC ARTERIOGRAM LEFT LEG, DRUG COATED BALLOON ANGIOPLASTY RIGHT COMMON FEMORAL ARTERY OCCLUSION NARRATIVE : The patient was taken to the operative suite and placed in the supine position. The left groin and entire right leg were prepped and draped in sterile fashion. The patient was given intravenous sedation supervised by myself. Time out for the procedure obtained. Ultrasound used to identify the left femoral artery and the skin overlying it infiltrated with 0.5% Marcaine. Ultrasound then used to guide puncture of the left femoral artery and a 0.012 inch guide wire was placed. Incision made over the guide wire at the skin edge with a # 11 knife blade and a micro sheath placed over the guide wire into the left femoral artery The small guidewire exchanged for a 0.035 inch Advantage glide wire and the micro sheath exchanged for a 5 Fr vascular sheath. Patient given 5000 units of intravenous heparin. Omni catheter was placed over the guide wire into the aorta and diagnostic aortogram carried out with the power injector showing patent aorta and iliac arteries with aortic stent graft in place . Omni catheter was used to steer the guide wire down the right common iliac artery to the distal right external iliac artery . Omni catheter was exchanged for a [place] catheter and sequential arteriograms carried out of the right lower extremity showing occlusion of a 5 cm section of the right common femoral artey with good flow throughout the rest of the rigth leg with 3 vessel runoff. The 5 Fr sheath in the left groin then exchanged for a 7 Fr [place] sheath which was parked in right external iliac artery. [place] catheter and the guide wire were used to traverse the arteries of the right leg ultimately ending in the right distal superficial femoral artery . This was selective catheterization. Over the 0.035 inch wire we placed a [place] 6mm x 100 mm drug coated balloon which was inflated for 3 minutes. At the completion of this a follow up arteriogram showed excellent result . Power injector used to place dye down the left leg throught the sheath in the left femoral artery . Flow was normal throught the left leg including through multiple stents in the left superficial femoral artery . All wires and devices removed. The 7 Fr sheath in the left groin removed and pressure held over this puncture site x 10 minutes. Patient given 20 mg of IV Protamine , Dressing applied to the left groin. The patient taken to the floor in good condition. Type of Anesthesia: Local (0.5% Marcaine) Anesthesia Comment: plus MAC Findings: occlusion right common femoral artery over short segment , possible closure device occlusion Type of Fluids Used:: Lactated Ringers Total Amount of Fluid Infused:: 600 cc Urine output: 200 cc EBL: 100 cc Complications:: none Needle/Sponge Count:: correct Disposition/Condition: Pt. tolerated procedure without difficulty. Patient taken to the floor in stable condition.
--- NOTE | 2023-06-22 08:14 | NOTE.SOAP ---
Soap Note Note for Day of Date of Exam: 06/22/23 Subjective Data Subjective Data: 67 year old female with gangrene of right foot who has undergone multiple toe amputations. Patient underwent a transmetatarsal amputation yesterday. She was seen this morning with alter mental status trying to take her gown off. Splint has been left intact. She did not have any complaints about her foot. Nurses said she kept asking to take splint off but she left intact Objective Data Objective Data: dressing c/d/i without strikethroug Assessment Assessment: S/P TMA with wound debridement, right foot - Peripheral arterial disease - Gangrene Plan Plan: Patient seen bedside this am. Helped get comfortable. Dressings to be left c/d/i until her follow up appointmetn with dr. michelle next week. Discharge with pain medication. She is to keep her heels floating at all times in the bed. SHe is to be nonweightbearing to the right lower extremity at all times. Patient okay for discharge from a podiatry standpoint. Vascular recs appreciated.
--- NOTE | 2023-06-22 09:30 | W.DIS.FURT ---
Summary of Discharge Discharge Summary of Date Date of Exam: 06/22/23 Admission Date Date of Admission: 06/19/23 Admission Diagnosis Hospital Course: This is a 67 year old female, resident of a [facility] Who has had bilateral lower arterial intervention in the past several months. She has required several toe amputations of both feet. She presented with acute onset of rest pain and redness of the right foot with ischemic changes of the right second toe. She was seen by Dr Diaz who felt she needed intervention prior to right transmetatarsal amputation . Because of her elevated creatinine CT angiogram was not obtained. 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 This was s was balloon dilated with a drug-coated balloon and she has done well and underwent uncomplicated right transmetatarsal amputation yesterday. She has remained confused which is her usual state. Dressing is intact of the right foot. She will be [facility] to [facility] today and continue all our home medications. I will see her in follow up in [address] Diaz will see her in 1 week as well . Creatinine on discharge improved to 1.65 and was 1.96 on admission. Vital Signs: Vital Signs (72 hours) 06/21/23 12:19 06/19/23 13:50 06/19/23 13:45 Temperature 97.4 F L 98.0 F Pulse Rate 98 H Pulse Rate [Left Brachial] 68 Respiratory Rate 20 17 Blood Pressure 139/63 Blood Pressure [Left Arm] 131/56 O2 Sat by Pulse Oximetry 92 L 96 Oxygen Delivery Method Nasal Cannula Room Air Oxygen Flow Rate 3 FIO2% 32 06/19/23 14:31 06/19/23 16:00 06/19/23 15:31 Temperature 97.8 F Pulse Rate Pulse Rate [Left Brachial] 70 Respiratory Rate 20 18 20 Blood Pressure Blood Pressure [Left Arm] 123/56 O2 Sat by Pulse Oximetry 98 Oxygen Delivery Method Room Air Oxygen Flow Rate FIO2% 06/19/23 13:25 06/19/23 20:18 06/19/23 20:21 Temperature Pulse Rate 76 Pulse Rate [Left Brachial] Respiratory Rate Blood Pressure Blood Pressure [Left Arm] O2 Sat by Pulse Oximetry 96 Oxygen Delivery Method Room Air Nasal Cannula Oxygen Flow Rate 3 FIO2% 32 06/19/23 20:35 06/19/23 21:35 06/19/23 20:00 Temperature 97.5 F L Pulse Rate Pulse Rate [Left Brachial] 61 Respiratory Rate 18 18 18 Blood Pressure Blood Pressure [Left Arm] 113/53 O2 Sat by Pulse Oximetry 100 Oxygen Delivery Method Nasal Cannula Oxygen Flow Rate 2 FIO2% 06/19/23 19:00 06/19/23 23:50 06/20/23 05:56 Temperature 97.5 F L Pulse Rate Pulse Rate [Left Brachial] 53 L Respiratory Rate 18 18 Blood Pressure Blood Pressure [Left Arm] 131/57 O2 Sat by Pulse Oximetry 99 Oxygen Delivery Method Nasal Cannula Nasal Cannula Oxygen Flow Rate 2 FIO2% 06/20/23 04:00 06/20/23 06:12 06/20/23 07:54 Temperature 97.7 F 97.0 F L Pulse Rate 80 Pulse Rate [Left Brachial] 59 L 63 Respiratory Rate 20 17 Blood Pressure Blood Pressure [Left Arm] 135/58 115/56 O2 Sat by Pulse Oximetry 100 98 97 Oxygen Delivery Method Nasal Cannula Nasal Cannula Oxygen Flow Rate 2 2 FIO2% 06/20/23 09:02 06/20/23 07:00 06/20/23 06:56 Temperature Pulse Rate Pulse Rate [Left Brachial] Respiratory Rate 18 Blood Pressure Blood Pressure [Left Arm] O2 Sat by Pulse Oximetry Oxygen Delivery Method Nasal Cannula Nasal Cannula Oxygen Flow Rate 3 FIO2% 32 06/20/23 12:00 06/20/23 12:45 06/20/23 14:20 Temperature 97.1 F L 98.7 F 97.5 F L Pulse Rate 60 Pulse Rate [Left Brachial] 61 62 Respiratory Rate 18 18 16 Blood Pressure 112/62 Blood Pressure [Left Arm] 123/84 109/53 O2 Sat by Pulse Oximetry 98 97 99 Oxygen Delivery Method Nasal Cannula Nasal Cannula Oxygen Flow Rate 2 FIO2% 06/20/23 14:35 06/20/23 14:50 06/20/23 15:05 Temperature 97.4 F L 97.5 F L 97.8 F Pulse Rate Pulse Rate [Left Brachial] 63 65 65 Respiratory Rate 18 16 16 Blood Pressure Blood Pressure [Left Arm] 104/51 87/48 119/55 O2 Sat by Pulse Oximetry 99 100 100 Oxygen Delivery Method Oxygen Flow Rate FIO2% 06/20/23 16:05 06/20/23 17:05 06/20/23 18:08 Temperature 97.8 F 97.8 F 98.0 F Pulse Rate Pulse Rate [Left Brachial] 71 64 62 Respiratory Rate 17 17 18 Blood Pressure Blood Pressure [Left Arm] 138/87 128/58 115/52 O2 Sat by Pulse Oximetry 100 100 100 Oxygen Delivery Method Oxygen Flow Rate FIO2% 06/20/23 20:15 06/20/23 20:15 06/20/23 20:00 Temperature 97.9 F Pulse Rate 72 Pulse Rate [Left Brachial] 72 Respiratory Rate 20 Blood Pressure Blood Pressure [Left Arm] 91/47 O2 Sat by Pulse Oximetry 97 94 L Oxygen Delivery Method Nasal Cannula Room Air Oxygen Flow Rate 3 FIO2% 32 06/20/23 19:00 06/21/23 00:00 06/21/23 04:00 Temperature 98.1 F 98.1 F Pulse Rate Pulse Rate [Left Brachial] 84 89 Respiratory Rate 20 20 Blood Pressure Blood Pressure [Left Arm] 116/57 132/57 O2 Sat by Pulse Oximetry 100 93 L Oxygen Delivery Method Nasal Cannula Room Air Room Air Oxygen Flow Rate FIO2% 06/21/23 05:57 06/21/23 08:00 06/21/23 07:00 Temperature 97.4 F L Pulse Rate 65 Pulse Rate [Left Brachial] 98 H Respiratory Rate 20 Blood Pressure Blood Pressure [Left Arm] 139/63 O2 Sat by Pulse Oximetry 98 92 L Oxygen Delivery Method Room Air Nasal Cannula Oxygen Flow Rate 3 FIO2% 06/21/23 09:30 06/21/23 14:54 06/21/23 14:54 Temperature 97.0 F L 97.0 F L Pulse Rate 70 Pulse Rate [Left Brachial] 70 Respiratory Rate 16 16 Blood Pressure 119/51 Blood Pressure [Left Arm] 119/51 O2 Sat by Pulse Oximetry 99 99 Oxygen Delivery Method Room Air Aerosol Face Tent Oxygen Flow Rate 3 FIO2% 32 06/21/23 14:59 06/21/23 15:14 06/21/23 15:23 Temperature 97.0 F L 97.0 F L 97.0 F L Pulse Rate 67 69 69 Pulse Rate [Left Brachial] Respiratory Rate 16 18 18 Blood Pressure 113/53 129/58 135/63 Blood Pressure [Left Arm] O2 Sat by Pulse Oximetry 99 97 98 Oxygen Delivery Method Aerosol Face Tent Nasal Cannula Nasal Cannula Oxygen Flow Rate FIO2% 06/21/23 15:04 06/21/23 15:09 06/21/23 12:00 Temperature 97.0 F L 97.0 F L 98.2 F Pulse Rate 68 68 Pulse Rate [Left Brachial] 59 L Respiratory Rate 16 18 18 Blood Pressure 134/56 129/58 Blood Pressure [Left Arm] 136/83 O2 Sat by Pulse Oximetry 100 100 96 Oxygen Delivery Method Aerosol Face Tent Room Air Room Air Oxygen Flow Rate FIO2% 06/21/23 15:19 06/21/23 15:15 06/21/23 15:30 Temperature 97.0 F L 98.1 F 97.4 F L Pulse Rate 69 Pulse Rate [Left Brachial] 74 71 Respiratory Rate 18 20 21 Blood Pressure 140/60 Blood Pressure [Left Arm] 128/58 122/62 O2 Sat by Pulse Oximetry 98 99 100 Oxygen Delivery Method Nasal Cannula Oxygen Flow Rate FIO2% 06/21/23 15:45 06/21/23 16:00 06/21/23 16:15 Temperature 98.1 F 98.1 F 97.9 F Pulse Rate Pulse Rate [Left Brachial] 70 72 70 Respiratory Rate 19 20 20 Blood Pressure Blood Pressure [Left Arm] 120/58 127/59 125/58 O2 Sat by Pulse Oximetry 99 98 99 Oxygen Delivery Method Oxygen Flow Rate FIO2% 06/21/23 16:15 06/21/23 20:01 06/21/23 20:10 Temperature 98.1 F Pulse Rate Pulse Rate [Left Brachial] 72 Respiratory Rate 20 22 Blood Pressure Blood Pressure [Left Arm] 127/59 O2 Sat by Pulse Oximetry 98 Oxygen Delivery Method Room Air Nasal Cannula Oxygen Flow Rate 2 FIO2% 28 06/21/23 20:10 06/21/23 21:01 06/21/23 19:00 Temperature Pulse Rate 76 Pulse Rate [Left Brachial] Respiratory Rate 20 Blood Pressure Blood Pressure [Left Arm] O2 Sat by Pulse Oximetry 100 Oxygen Delivery Method Nasal Cannula Oxygen Flow Rate 3 FIO2% 06/21/23 20:00 06/22/23 00:24 06/22/23 00:00 Temperature 98.1 F 98.0 F Pulse Rate Pulse Rate [Left Brachial] 73 75 Respiratory Rate 20 20 Blood Pressure Blood Pressure [Left Arm] 135/60 138/61 O2 Sat by Pulse Oximetry 96 94 L Oxygen Delivery Method Room Air Nasal Cannula Room Air Oxygen Flow Rate 2 FIO2% 28 06/22/23 02:38 06/22/23 03:38 06/22/23 04:00 Temperature 100.3 F H Pulse Rate Pulse Rate [Left Brachial] 89 Respiratory Rate 20 20 20 Blood Pressure Blood Pressure [Left Arm] 143/78 O2 Sat by Pulse Oximetry 98 Oxygen Delivery Method Room Air Oxygen Flow Rate FIO2% 06/22/23 07:00 Temperature Pulse Rate Pulse Rate [Left Brachial] Respiratory Rate Blood Pressure Blood Pressure [Left Arm] O2 Sat by Pulse Oximetry Oxygen Delivery Method Nasal Cannula Oxygen Flow Rate 3 FIO2% Labs: Laboratory Last Values WBC 8.7 X10^3/uL (3.6-10.0) 06/21/23 05:40 RBC 3.90 X10^6/uL (3.5-5.4) 06/21/23 05:40 Hgb 11.2 g/dL (12.0-16.0) L 06/21/23 05:40 Hct 34.8 % (36.0-47.0) L 06/21/23 05:40 MCV 89.3 fL (80.0-100.0) 06/21/23 05:40 MCH 28.6 pg (27.0-34.0) 06/21/23 05:40 MCHC 32.1 g/dL (33.0-35.0) L 06/21/23 05:40 RDW 20.3 % (11.6-16.5) H 06/21/23 05:40 Plt Count 324 X10^3/uL (150.0-450.0) 06/21/23 05:40 Plt Count Comment Adequate (ADEQUATE) 06/21/23 05:40 MPV 8.0 fL (7.4-11.0) 06/21/23 05:40 Neut % (Auto) 78.0 % (42.0-75.0) H 06/21/23 05:40 Lymph % (Auto) 15.5 % (21.0-51.0) L 06/21/23 05:40 [place] % (Auto) 4.9 % (0.0-13.0) 06/21/23 05:40 Eos % (Auto) 1.0 % (0.9-2.9) 06/21/23 05:40 Baso % (Auto) 0.6 % (0.2-1.0) 06/21/23 05:40 Neut # (Auto) 6.8 x10^3/uL (2.2-4.8) H 06/21/23 05:40 Lymph # (Auto) 1.3 X10^3/uL (1.3-2.9) 06/21/23 05:40 [place] # (Auto) 0.4 x10^3/uL (0.3-0.8) 06/21/23 05:40 Eos # (Auto) 0.1 x10^3/uL (0.0-0.2) 06/21/23 05:40 Baso # (Auto) 0.1 X10^3/uL (0.0-0.1) 06/21/23 05:40 Absolute Nucleated RBC 0.1 /100WBC 06/21/23 05:40 Plt Morphology Comment Normal (NORMAL) 06/21/23 05:40 RBC Morphology Abnormal (NORMAL) A 06/21/23 05:40 Anisocytosis 1+ A 06/21/23 05:40 Sodium 137 mmol/L (136-145) 06/21/23 05:40 Corrected Sodium 140 mmol/L (136-145) 06/21/23 05:40 Potassium 5.0 mmol/L (3.5-5.1) 06/21/23 05:40 Chloride 102 mmol/L (98-107) 06/21/23 05:40 Carbon Dioxide 26.3 mmol/L (21-32) 06/21/23 05:40 BUN 32 mg/dL (7-18) H 06/21/23 05:40 Creatinine 1.65 mg/dL (0.55-1.02) H 06/21/23 05:40 Est GFR (MDRD) Af Amer 40 (>60) L 06/21/23 05:40 Est GFR (MDRD) Non-Af 33 (>60) L 06/21/23 05:40 Glucose 234 mg/dL (65-99) H 06/21/23 05:40 POC Glucose (mg/dL) 226 mg/dL (65-99) H 06/22/23 05:20 Calcium 9.6 mg/dL (8.5-10.1) 06/21/23 05:40 Corrected Calcium 9.9 mg/dL (8.5-10.1) 06/19/23 15:26 Total Bilirubin 0.30 mg/dL (0.2-1.0) 06/19/23 15:26 AST 27 Units/L (15-37) 06/19/23 15:26 ALT 26 Units/L (12-78) 06/19/23 15:26 Alkaline Phosphatase 214 Units/L (46-116) H 06/19/23 15:26 Total Protein 8.1 g/dL (6.4-8.2) 06/19/23 15:26 Albumin 3.0 g/dL (3.4-5.0) L 06/19/23 15:26 Globulin 5.1 g/dL (2.5-4.5) H 06/19/23 15:26 Albumin/Globulin Ratio 0.6 Ratio (1.1-2.1) L 06/19/23 15:26 Blood Type O POSITIVE 06/19/23 17:43 Antibody Screen Negative 06/19/23 17:43 Reason For Visit: CRITICAL ISCHEMIA RIGHT FOOT Discharge Date Discharge Date: 06/22/23 Discharge Diagnosis All Active Problems (Updated 05/10/23 @ 09:13 by Ramila Grajeda) Cellulitis of left foot (Acute) Acute UTI (Acute) Altered mental status (Acute) Gangrene of toe of left foot (Acute) Atherosclerosis of [place] arteries of extremities with rest pain, right leg (Acute) Atherosclerosis of [place] arteries of extremities with rest pain, left leg (Acute) Personal history of cerebrovascular accident with current residual effects (Acute) Chronic ischemic heart disease, unspecified (Acute) Essential (primary) hypertension (Acute) Osteomyelitis of second toe of right foot (Acute) Type 2 diabetes mellitus without complications (Acute) Depression (Acute) Plan of Treatment: Continue with present treatment and follow up plan. Pt is to keep follow up appointment as instructed and take medications as ordered. Discharge Medications Discharge Medications: No Known Allergies Allergy (Verified 05/09/23 10:04) CONTINUE taking the following medications ascorbic acid (vitamin C) 500 mg capsule 500 mg PO DAILY 06/19/23 [History] calamine 1 ea topical Q6H PRN 06/19/23 [History] ferrous sulfate 325 mg (65 mg iron) tablet 325 mg PO DAILY 06/19/23 [History] lorazepam 0.5 mg tablet 0.5 mg PO Q8H PRN 06/19/23 [History] multivitamin,dd-cyal-Fa-FA-min 1 tab PO DAILY 06/19/23 [History] nystatin 100,000 unit/gram topical powder 1 applic topical TID 06/19/23 [History] teriparatide 20 mcg/dose (600 mcg/2.4 mL) subcutaneous pen injector 20 mcg subcut DAILY 06/19/23 [History] zinc 50 mg tablet 50 mg PO DAILY 06/19/23 [History] Discharge Disposition Assessment: see hospital course Discharge Plan Discharge Plan Hospital Course: This is a 67 year old female, resident of a [facility] Facility Who has had bilateral lower arterial intervention in the past several months. She has required several toe amputations of both feet. She presented with acute onset of rest pain and redness of the right foot with ischemic changes of the right second toe. She was seen by Dr Diaz who felt she needed intervention prior to right transmetatarsal amputation . Because of her elevated creatinine CT angiogram was not obtained. 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 This was s was balloon dilated with a drug-coated balloon and she has done well and underwent uncomplicated right transmetatarsal amputation yesterday. She has remained con fused which is her usual state. Dressing is intact of the right foot. She will be discharged back to [facility] today and continue all our home medications. I will see her in follow up in [address] Diaz will see her in 1 week as well . Creatinine on discharge improved to 1.65 and was 1.96 on admission. Patient Disposition: 03 [facility] Condition: Stable Health Concerns: Post Hospitalization: new medications and changes needed to prevent readmission or further decline. Pt educated and given instructions on all concerns. Care Plan Goals: see hospital course Plan of Treatment: Continue with present treatment and follow up plan. Pt is to keep follow up appointment as instructed and take medications as ordered. Assessment: see hospital course Prescription drug monitoring program results: PDMP reviewed and no concerns identified Prescriptions: No Action lorazepam 0.5 mg Tablet 0.5 mg PO Q8H PRN calamine Lotion 1 ea TOPICAL Q6H PRN Rx Instructions: apply to buttocks/noé area q6hrs prn irritation ferrous sulfate 325 mg (65 mg iron) Tablet 325 mg PO DAILY zinc 50 mg Tablet 50 mg PO DAILY nystatin 100,000 unit/gram Powder 1 applic TOPICAL TID Rx Instructions: apply to abdominal folds / perineal topically three times a day for yeast / irritation Multivitamin And Mineral Tablet 1 tab PO DAILY teriparatide 20 mcg/dose (600mcg/2.4mL) pen injector 20 mcg SUBCUT DAILY Patient Comments: [NO ORIGINAL SIG] ascorbic acid (vitamin C) 500 mg Capsule 500 mg PO DAILY atorvastatin 40 mg tablet 40 mg PO HS methocarbamol 500 mg tablet 500 mg PO HS clopidogrel 75 mg tablet 75 mg PO QDAY gabapentin 800 mg tablet 800 mg PO TID rivastigmine tartrate 4.5 mg capsule 4.5 mg PO BID lisinopril 2.5 mg tablet 2.5 mg PO QDAY metoprolol tartrate 25 mg tablet 12.5 mg PO BID duloxetine 30 mg capsule,delayed release(DR/EC) 30 mg PO BID Myrbetriq 50 mg tablet extended release 24 hr 50 mg PO QDAY Jardiance 25 mg tablet 25 mg PO QDAY aspirin 81 mg Tablet,Chewable 81 mg PO QDAY docusate sodium [Colace] 100 mg Capsule 100 mg PO BID diphenhydramine HCl 25 mg Capsule 25 mg PO TID PRN (Reason: Itching) oxycodone-acetaminophen 5-325 mg Tablet 1 tab PO Q6H PRN polyethylene glycol 3350 17 gram Powder In Packet 17 g PO DAILY calcium carbonate 600 mg calcium (1,500 mg) Tablet 600 mg PO BID melatonin 5 mg Tablet 10 mg PO HS Lantus U-100 Insulin 100 unit/mL Cartridge 10 unit SUBCUT QAM insulin glargine [Lantus Solostar U-100 Insulin] 100 unit/mL (3 mL) Insulin Pen 20 unit SUBCUT QHS insulin lispro 100 unit/mL Solution 1 sliding scale dose SUBCUT USEASDIRECTD Rx Instructions: per sliding scale Xarelto 2.5 mg tablet 2.5 mg PO BID Qty: 180 0RF olanzapine 5 mg tablet 10 mg PO HS cholecalciferol (vitamin D3) [Vitamin D3] 125 mcg (5,000 unit) Tablet 125 mcg PO QDAY Biofreeze (menthol) 4 % Gel 1 applic TOPICAL DAILY PRN fluticasone propion-salmeterol [Advair Diskus] 250-50 mcg/dose Blister With Device 1 inh INHALATION BID dextrose [Insta-Glucose] 40 % Gel 1 ea PO PRN PRN GlucaGen 1 mg Recon Soln 1 mg IM PRN PRN cyanocobalamin (vitamin B-12) 1,000 mcg/mL Kit 1,000 mcg IM MONTHLY Rx Instructions: Give on the first of the month Orders to Discharge Patient Discharge Orders: Discharge (Routine); Ordered 06/22/23 Ordered By: Valentin Villar Follow ups/Referrals Follow ups/Referrals: ,Misc [Primary Care Provider] - 1 WEEK Instructions Instructions: Endovascular Therapy for Peripheral Vascular Disease, Care After
--- NOTE | 2023-06-22 11:16 | DR.H&P ---
H&P History & Physical for Day of: H&P Date: 06/19/23 Chief Complaint Chief Complaint: Painful right leg Allergies Allergies Allergy/AdvReac Type Severity Reaction Status Date / Time No Known Allergies Allergy Verified 05/09/23 10:04 History of Present Illness History of Present Illness: This is 67 year old female with significant peripheral vascular disease who is a resident of a local Intermediate Facility. She has had bilateral lower extremity arterial intervention and multiple toes amputated within the past 6 months of both feet. She presented to Dr. Diaz with severe breast pain of the left foot with rubor and some earliest ischemic changes of the remaining toes of that foot. Dr. Diaz planned right transmetatarsal amputation but asked me to see the patient to determine if she needed any additional arterial invention prior to the transmetarsal amputation . Past Medical History Past Medical History: Anemia, Anxiety, Arthritis, COPD, Coronary Artery Disease, CVA, Dementia, Depression, Diabetes, Dyslipidemia, Hypertension and Renal Disease Past Surgical History Surgical History: Abdominal Surgery, Cholecystectomy and Ortho Surgery Additional Surgical History: bilateral lowere extremity arterial surgery Family History Family Medical History: Diabetes Mellitus Social History Does patient currently use any type of tobacco product: No Type of Tobacco Use: None Alcohol Use: None Drug Use: None Medications Home Medications: Home Medications Medication Instructions Recorded Confirmed Type aspirin 81 mg chewable tablet 81 mg PO QDAY 04/10/23 06/19/23 History atorvastatin 40 mg tablet 40 mg PO HS 04/10/23 06/19/23 History calcium carbonate 600 mg PO BID 04/10/23 06/19/23 History clopidogrel 75 mg tablet 75 mg PO QDAY 04/10/23 06/19/23 History diphenhydramine HCl 25 mg capsule 25 mg PO TID PRN Itching 04/10/23 06/19/23 History docusate sodium 100 mg capsule 100 mg PO BID 04/10/23 06/19/23 History (Colace) duloxetine 30 mg capsule,delayed 30 mg PO BID 04/10/23 06/19/23 History release empagliflozin 25 mg tablet 25 mg PO QDAY 04/10/23 06/19/23 History (Jardiance) gabapentin 800 mg tablet 800 mg PO TID 04/10/23 06/19/23 History insulin glargine 100 unit/mL (3 20 unit subcut QHS 04/10/23 06/19/23 History mL) subcutaneous pen (Lantus Solostar U-100 Insulin) insulin glargine 100 unit/mL 10 unit subcut QAM 04/10/23 06/19/23 History subcutaneous cartridge lisinopril 2.5 mg tablet 2.5 mg PO QDAY 04/10/23 06/19/23 History melatonin 5 mg tablet 10 mg PO HS 04/10/23 06/19/23 History methocarbamol 500 mg tablet 500 mg PO HS 04/10/23 06/19/23 History metoprolol tartrate 25 mg tablet 12.5 mg PO BID 04/10/23 06/19/23 History mirabegron 50 mg tablet,extended 50 mg PO QDAY 04/10/23 06/19/23 History release 24 hr (Myrbetriq) oxycodone-acetaminophen 5 mg-325 1 tab PO Q6H PRN 04/10/23 06/19/23 History mg tablet polyethylene glycol 3350 17 gram 17 g PO DAILY 04/10/23 06/19/23 History oral powder packet rivastigmine tartrate 4.5 mg 4.5 mg PO BID 04/10/23 06/19/23 History capsule insulin lispro 100 unit/mL 1 sliding scale dose subcut 04/11/23 06/19/23 History subcutaneous solution USEASDIRECTD cholecalciferol (vitamin D3) 125 125 mcg PO QDAY 05/01/23 06/19/23 History mcg (5,000 unit) tablet (Vitamin D3) menthol 4 % topical gel (Biofreeze 1 applic topical DAILY PRN 05/01/23 06/19/23 History (menthol)) olanzapine 5 mg tablet 10 mg PO HS 05/01/23 06/19/23 History cyanocobalamin (vitamin B-12) 1,000 mcg IM MONTHLY 05/09/23 06/19/23 History 1,000 mcg/mL injection kit dextrose 40 % oral gel 1 ea PO PRN PRN 05/09/23 06/19/23 History fluticasone 250 mcg-salmeterol 50 1 inh inhalation BID 05/09/23 06/19/23 History mcg/dose blistr powdr for inhalation (Advair Diskus) glucagon 1 mg solution for 1 mg IM PRN PRN 05/09/23 06/19/23 History injection ascorbic acid (vitamin C) 500 mg 500 mg PO DAILY 06/19/23 06/19/23 History capsule calamine 1 ea topical Q6H PRN 06/19/23 06/19/23 History ferrous sulfate 325 mg (65 mg 325 mg PO DAILY 06/19/23 06/19/23 History iron) tablet lorazepam 0.5 mg tablet 0.5 mg PO Q8H PRN 06/19/23 06/19/23 History multivitamin,dt-kxgi-Ow-FA-min 1 tab PO DAILY 06/19/23 06/19/23 History nystatin 100,000 unit/gram topical 1 applic topical TID 06/19/23 06/19/23 History powder teriparatide 20 mcg/dose (600 20 mcg subcut DAILY 06/19/23 06/19/23 History mcg/2.4 mL) subcutaneous pen injector zinc 50 mg tablet 50 mg PO DAILY 06/19/23 06/19/23 History Labs 06/21/23 05:40 06/21/23 05:40 Labs: Laboratory WBC 8.7 X10^3/uL (3.6-10.0) 06/21/23 05:40 RBC 3.90 X10^6/uL (3.5-5.4) 06/21/23 05:40 Hgb 11.2 g/dL (12.0-16.0) L 06/21/23 05:40 Hct 34.8 % (36.0-47.0) L 06/21/23 05:40 MCV 89.3 fL (80.0-100.0) 06/21/23 05:40 MCH 28.6 pg (27.0-34.0) 06/21/23 05:40 MCHC 32.1 g/dL (33.0-35.0) L 06/21/23 05:40 RDW 20.3 % (11.6-16.5) H 06/21/23 05:40 Plt Count 324 X10^3/uL (150.0-450.0) 06/21/23 05:40 Plt Count Comment Adequate (ADEQUATE) 06/21/23 05:40 MPV 8.0 fL (7.4-11.0) 06/21/23 05:40 Neut % (Auto) 78.0 % (42.0-75.0) H 06/21/23 05:40 Lymph % (Auto) 15.5 % (21.0-51.0) L 06/21/23 05:40 [place]anner % (Auto) 4.9 % (0.0-13.0) 06/21/23 05:40 Eos % (Auto) 1.0 % (0.9-2.9) 06/21/23 05:40 Baso % (Auto) 0.6 % (0.2-1.0) 06/21/23 05:40 Neut # (Auto) 6.8 x10^3/uL (2.2-4.8) H 06/21/23 05:40 Lymph # (Auto) 1.3 X10^3/uL (1.3-2.9) 06/21/23 05:40 [place]anner # (Auto) 0.4 x10^3/uL (0.3-0.8) 06/21/23 05:40 Eos # (Auto) 0.1 x10^3/uL (0.0-0.2) 06/21/23 05:40 Baso # (Auto) 0.1 X10^3/uL (0.0-0.1) 06/21/23 05:40 Absolute Nucleated RBC 0.1 /100WBC 06/21/23 05:40 Plt Morphology Comment Normal (NORMAL) 06/21/23 05:40 RBC Morphology Abnormal (NORMAL) A 06/21/23 05:40 Anisocytosis 1+ A 06/21/23 05:40 Sodium 137 mmol/L (136-145) 06/21/23 05:40 Corrected Sodium 140 mmol/L (136-145) 06/21/23 05:40 Potassium 5.0 mmol/L (3.5-5.1) 06/21/23 05:40 Chloride 102 mmol/L (98-107) 06/21/23 05:40 Carbon Dioxide 26.3 mmol/L (21-32) 06/21/23 05:40 BUN 32 mg/dL (7-18) H 06/21/23 05:40 Creatinine 1.65 mg/dL (0.55-1.02) H 06/21/23 05:40 Est GFR (MDRD) Af Amer 40 (>60) L 06/21/23 05:40 Est GFR (MDRD) Non-Af 33 (>60) L 06/21/23 05:40 Glucose 234 mg/dL (65-99) H 06/21/23 05:40 POC Glucose (mg/dL) 226 mg/dL (65-99) H 06/22/23 05:20 Calcium 9.6 mg/dL (8.5-10.1) 06/21/23 05:40 Corrected Calcium 9.9 mg/dL (8.5-10.1) 06/19/23 15:26 Total Bilirubin 0.30 mg/dL (0.2-1.0) 06/19/23 15:26 AST 27 Units/L (15-37) 06/19/23 15:26 ALT 26 Units/L (12-78) 06/19/23 15:26 Alkaline Phosphatase 214 Units/L (46-116) H 06/19/23 15:26 Total Protein 8.1 g/dL (6.4-8.2) 06/19/23 15:26 Albumin 3.0 g/dL (3.4-5.0) L 06/19/23 15:26 Globulin 5.1 g/dL (2.5-4.5) H 06/19/23 15:26 Albumin/Globulin Ratio 0.6 Ratio (1.1-2.1) L 06/19/23 15:26 Blood Type O POSITIVE 06/19/23 17:43 Antibody Screen Negative 06/19/23 17:43 Review of Systems Constitutional: See HPI Eyes: No Symptoms Reported ENT: No Symptoms Reported Respiratory: No Symptoms Reported Cardiovascular: No Symptoms Reported Gastrointestinal: No Symptoms Reported Genitourinary: No Symptoms Reported Musculoskeletal: No Symptoms Reported Skin: See HPI Neurological: No Symptoms Reported Physical Exam Vital Signs: Vital Signs Temperature 100.3 F Pulse Rate [Left Brachial] 89 Respiratory Rate 20 Respiratory Rate 20 Respiratory Rate 20 Blood Pressure [Left Arm] 143/78 O2 Sat by Pulse Oximetry 98 Oriented: Person and Not Oriented; negative Time or Place Eyes: Normal Ear: Normal Nose: Normal Throat: Normal Respiratory: Clear Throughout Cardiovascular: Normal : Normal Auscultation: Bowel Sounds: Normal Palpation: Normal Tenderness: Normal Skin: Other (rubar of the right foot with ischemic changes of toes) Psychiatric: Other (dementia) Mood Description: Anxious Affect: Anxious Speech Pattern: Inappropriate and Excessive Assessment/Plan (1) Atherosclerosis of [place] arteries of extremities with rest pain, right leg: Status: Acute Plan: due to the patient's past history of elevated creatinine will plan on table arteriogram and appropriate intervention of the right leg prior to Dr. Diaz planning right transmetatarsal amputation (2) Atherosclerosis of [place] arteries of extremities with rest pain, left leg: Status: Acute Plan: left leg with some crust over remaining second toe. May require arteriogram left leg (3) Type 2 diabetes mellitus without complications: Status: Acute Plan: sliding scale insulin (4) Depression: Status: Acute Plan: home meds (5) Essential (primary) hypertension: Status: Acute Plan: home meds (6) Chronic ischemic heart disease, unspecified: Status: Acute Plan: home meds (7) Personal history of cerebrovascular accident with current residual effects: Status: Acute Plan: observe Review H&P Reviewed: Yes Patient was examined?: Yes
[2023-06-22 12:39] VITALS: BP 143/80; PULSE 70; RESP 18; TEMP 98.1; O2SAT 96
== END 2023-06-22 12:30 | DRG 240 ==
LOC: MED/SURG 13:37
PROVIDERS: ADMIT Surgery; ATTEND Surgery
PROC: DEBRIDE (2023-06-21 17:15)
DX: I70.221 Atherosclerosis of native arteries of extremities with rest pain, right leg; Z01.810 Encounter for preprocedural cardiovascular examination; I10 Essential (primary) hypertension; L89.619 Pressure ulcer of right heel, unspecified stage; F32.89 Other specified depressive episodes; Z65.8 Other specified problems related to psychosocial circumstances; I25.10 Atherosclerotic heart disease of native coronary artery without angina pectoris; J44.9 Chronic obstructive pulmonary disease, unspecified; I69.398 Other sequelae of cerebral infarction; E11.65 Type 2 diabetes mellitus with hyperglycemia; I96 Gangrene, not elsewhere classified; L89.151 Pressure ulcer of sacral region, stage 1; E78.5 Hyperlipidemia, unspecified

== ENCOUNTER 2023-07-17 11:53 | Inpatient (IN) ==
[2023-07-17] MEDS ORDERED: PROVENTIL NEB TX 0.083% 2.5MG/ 3ML NEB PRN (17:46)
[2023-07-17 18:34] VITALS: BMI 31.5
[2023-07-17] MEDS ORDERED: REFLEX: PROVENTIL NEB & PulmiCORT NEB~ NEB SCH (18:45)
--- NOTE | 2023-07-17 19:01 | NOTE.SOAP ---
Soap Note Note for Day of Date of Exam: 07/17/23 Subjective Data Subjective Data: 67 year old female wellknown to our service for necrosis to bilateral feet secondary to PAD. She has had multiple toe amputations including the 2nd and 3rd on the left and a TMA on the right. She has a heel ulcer on the right that has worsened and was recommendd to come to the hospital for further workup. She was emotional at the visit this evening and in pain, particularly in her sacral area. Did not report any constitutional symptoms Objective Data Objective Data: Full thickness ulcer that probes to periosteum on the lateral heel of the right foot. Wound is necrotic, measures [id number] respectively. It is dry and stable, no purulence, drainage, malodor or crepitus. Cicatrix from TMA is intact and healed very nicely. Necrosis at the tip of the left partial 2nd amputation that is improving. Wound at the 3rd digit amputation site that has improved as well. Left foot is dry and stable showing no signs of infection Assessment Assessment: Arterial pressure ulcer, right heel -Possible underlying osteomyelitis Critical limb ischemia Plan Plan: Patient was seen at bedside this afternoon and comforted. She is very emotional. Labs and vitals reviewed. Wound was dressed with a sterile dressing and a splint to help keep offloaded. She is to keep heel floating at all times. MRI ordered to evaluate further for osteomyelitis. Vascular recs appreciated. Will follow further for possible debridement in the operating room; will discuss with Dr. Villar and pending MRI results
[2023-07-17] MEDS: PERCOCET TAB 5/325 MG PO PRN (19:39)
[2023-07-17] MEDS: LR 1,000 ML IV 1,000 ML IV SCH (19:41)
[2023-07-17] MEDS: PULMICORT NEB TX 0.5 MG NEB SCH (20:20)
[2023-07-17] MEDS: PROVENTIL NEB TX 0.083% 2.5MG/ 3ML NEB SCH (20:20)
[2023-07-17] MEDS: MIRALAX POWDER (1 DOSE 17 G) PO SCH (20:50)
[2023-07-17] MEDS: TUMS PO SCH (20:50)
[2023-07-17] MEDS: MELATONIN PO SCH (20:52)
[2023-07-17] MEDS: EXELON PO SCH (20:53)
[2023-07-17] MEDS: COLACE CAP 100 MG PO SCH (20:53)
[2023-07-17] MEDS: BENADRYL CAP/TAB 25 MG PO SCH (20:53)
[2023-07-17] MEDS: NEURONTIN CAP 300 MG PO SCH (20:53)
[2023-07-17] MEDS: LOPRESSOR TAB 25 MG PO SCH (20:53)
[2023-07-17] MEDS: NovoLIN R (or HumuLIN R) SC PRN (21:00)
[2023-07-17] MEDS ORDERED: NEURONTIN TAB 600 MG PO SCH (22:00)
--- NOTE | 2023-07-17 22:18 | EKG ---
Test Reason : protocol Blood Pressure : */* mmHG Vent. Rate : 79 BPM Atrial Rate : 79 BPM P-R Int : 174 ms QRS Dur : 84 ms QT Int : 378 ms P-R-T Axes : 56 -3 63 degrees QTc Int : 433 ms Normal sinus rhythm Inferior infarct (cited on or before 10-APR-2023) Abnormal ECG When compared with ECG of 09-MAY-2023 10:33, premature atrial complexes are no longer present Confirmed by Vasile Vail MD ([id number]) on 07/18/2023 7:35:12 AM Referred By: Confirmed By: Vasile Vail MD
[2023-07-18 05:34] LABS: BASOPHILS % (AUTO) 0.3 % (0.2-1.0); EOSINOPHILS # (AUTO) 0.1 x10^3/uL (0.0-0.2); EOSINOPHILS % (AUTO) 1.7 % (0.9-2.9); HEMATOCRIT 27.7 % (36.0-47.0); HEMOGLOBIN 8.9 g/dL (12.0-16.0); LYMPHOCYTES # (AUTO) 1.8 X10^3/uL (1.3-2.9); LYMPHOCYTES % (AUTO) 31.8 % (21.0-51.0); MEAN CORPUSCULAR HEMOGLOBIN 29.3 pg (27.0-34.0); MEAN CORPUSCULAR HGB CONC 32.2 g/dL (33.0-35.0); MEAN CORPUSCULAR VOLUME 90.9 fL (80.0-100.0); MEAN PLATELET VOLUME 7.8 fL (7.4-11.0); MONOCYTES # (AUTO) 0.6 x10^3/uL (0.3-0.8); MONOCYTES % (AUTO) 10.7 % (0.0-13.0); NEUTROPHILS # (AUTO) 3.1 x10^3/uL (2.2-4.8); NEUTROPHILS % (AUTO) 55.5 % (42.0-75.0); PLATELET COUNT 197 X10^3/uL (150.0-450.0); RED BLOOD COUNT 3.05 X10^6/uL (3.5-5.4); WHITE BLOOD COUNT 5.6 X10^3/uL (3.6-10.0)
[2023-07-18 05:44] LABS: ANISOCYTOSIS 2+; PLATELET MORPHOLOGY COMMENT NORMAL (NORMAL); SPHEROCYTES SLIGHT
[2023-07-18 05:53] LABS: ALBUMIN 2.1 g/dL (3.4-5.0); CALCIUM 9.8 mg/dL (8.5-10.1); CARBON DIOXIDE 28.3 mmol/L (21-32); COR CA(FOR HYPOALB) 11.3 mg/dL (8.5-10.1); CREATININE 1.67 mg/dL (0.55-1.02); MAGNESIUM 2.1 mg/dL (2.0-2.9); POTASSIUM 5.1 mmol/L (3.5-5.1); TOTAL PROTEIN 7.3 g/dL (6.4-8.2)
[2023-07-18] MEDS: ZyPREXA TAB 5 MG PO SCH (08:34)
[2023-07-18] MEDS: LIPITOR TAB 40 MG PO SCH (08:35)
[2023-07-18] MEDS: ROBAXIN PO SCH (08:35)
[2023-07-18] MEDS: HEMOCYTE-PLUS PO SCH (08:35)
[2023-07-18] MEDS: ZESTRIL TAB 5 MG PO SCH (08:35)
[2023-07-18] MEDS: DETROL LA 2 MG CAP EXT REL PO SCH (08:35)
[2023-07-18] MEDS: ASPIRIN EC 81 MG PO SCH (08:35)
[2023-07-18] MEDS: CYMBALTA PO SCH (08:35)
[2023-07-18] MEDS: PULMICORT NEB TX 0.5 MG NEB ONE (12:35)
[2023-07-18] MEDS ORDERED: COLACE CAP 100 MG PO PRN (13:41)
[2023-07-18] MEDS: MILK OF MAGNESIA PO PRN (15:40)
[2023-07-18] MEDS ORDERED: NS 250 ML IV 25 ML IV PRN (21:52)
--- NOTE | 2023-07-18 22:04 | DR.H&P ---
H&P History & Physical for Day of: H&P Date: 07/17/23 Chief Complaint Chief Complaint: Wound ulcer of the right lateral posterior heel History of Present Illness History of Present Illness: 67 yo female with significant history of peripheral vascular disease and subsequent amputation of left 3rd toe and more recent right transmetatarsal amputation. Patient is in SNF . Referred for wound to the right lateral posterior heel. Denies fever. Had f/u LE dopplers and ABIs last week which shows all proximal arterial flow right leg to be biphasic with monophasic flow both distal vessels at the ankle . Recent arteriogram shows 3 vessel runoff of the right leg. Past Medical History Past Medical History: Anemia, Anxiety, Arthritis, COPD, Coronary Artery Disease, CVA, Dementia, Depression, Diabetes, Dyslipidemia, Hypertension and Renal Disease Past Surgical History Surgical History: Abdominal Surgery, Cholecystectomy, Ortho Surgery and Other Additional Surgical History: bilateral lower extremity arterial surgery Family History Family Medical History: Diabetes Mellitus Social History Does patient currently use any type of tobacco product: No Type of Tobacco Use: None Alcohol Use: None Drug Use: None Medications Home Medications: Home Medications Medication Instructions Recorded Confirmed Type aspirin 81 mg chewable tablet 81 mg PO QDAY 04/10/23 06/19/23 History atorvastatin 40 mg tablet 40 mg PO HS 04/10/23 07/17/23 History calcium carbonate 600 mg PO BID 04/10/23 06/19/23 History clopidogrel 75 mg tablet 75 mg PO QDAY 04/10/23 06/19/23 History diphenhydramine HCl 25 mg capsule 25 mg PO TID PRN Itching 04/10/23 06/19/23 H istory docusate sodium 100 mg capsule 100 mg PO BID 04/10/23 06/19/23 History (Colace) duloxetine 30 mg capsule,delayed 30 mg PO BID 04/10/23 07/17/23 History release empagliflozin 25 mg tablet 25 mg PO QDAY 04/10/23 07/17/23 History (Jardiance) gabapentin 800 mg tablet 800 mg PO TID 04/10/23 07/17/23 History insulin glargine 100 unit/mL (3 20 unit subcut QHS 04/10/23 06/19/23 History mL) subcutaneous pen (Lantus Solostar U-100 Insulin) insulin glargine 100 unit/mL 10 unit subcut QAM 04/10/23 06/19/23 History subcutaneous cartridge lisinopril 2.5 mg tablet 2.5 mg PO QDAY 04/10/23 07/17/23 History melatonin 5 mg tablet 10 mg PO HS 04/10/23 06/19/23 History methocarbamol 500 mg tablet 500 mg PO HS 04/10/23 07/17/23 History metoprolol tartrate 25 mg tablet 12.5 mg PO BID 04/10/23 07/17/23 History mirabegron 50 mg tablet,extended 50 mg PO QDAY 04/10/23 06/19/23 History release 24 hr (Myrbetriq) oxycodone-acetaminophen 5 mg-325 1 tab PO Q6H PRN 04/10/23 07/17/23 History mg tablet polyethylene glycol 3350 17 gram 17 g PO DAILY 04/10/23 06/19/23 History oral powder packet rivastigmine tartrate 4.5 mg 4.5 mg PO BID 04/10/23 07/17/23 History capsule insulin lispro 100 unit/mL 1 sliding scale dose subcut 04/11/23 06/19/23 History subcutaneous solution USEASDIRECTD cholecalciferol (vitamin D3) 125 125 mcg PO QDAY 05/01/23 06/19/23 History mcg (5,000 unit) tablet (Vitamin D3) menthol 4 % topical gel (Biofreeze 1 applic topical DAILY PRN 05/01/23 06/19/23 History (menthol)) olanzapine 5 mg tablet 10 mg PO HS 05/01/23 07/17/23 History cyanocobalamin (vitamin B-12) 1,000 mcg IM MONTHLY 05/09/23 06/19/23 History 1,000 mcg/mL injection kit dextrose 40 % oral gel 1 ea PO PRN PRN 05/09/23 06/19/23 History fluticasone 250 mcg-salmeterol 50 1 inh inhalation BID 05/09/23 06/19/23 History mcg/dose blistr powdr for inhalation (Advair Diskus) glucagon 1 mg solution for 1 mg IM PRN PRN 05/09/23 06/19/23 History injection ascorbic acid (vitamin C) 500 mg 500 mg PO DAILY 06/19/23 06/19/23 History capsule calamine 1 ea topical Q6H PRN 06/19/23 06/19/23 History ferrous sulfate 325 mg (65 mg 325 mg PO DAILY 06/19/23 06/19/23 History iron) tablet lorazepam 0.5 mg tablet 0.5 mg PO Q8H PRN 06/19/23 06/19/23 History multivitamin,eh-lyha-Wd-FA-min 1 tab PO DAILY 06/19/23 06/19/23 History nystatin 100,000 unit/gram topical 1 applic topical TID 06/19/23 06/19/23 History powder teriparatide 20 mcg/dose (600 20 mcg subcut DAILY 06/19/23 06/19/23 History mcg/2.4 mL) subcutaneous pen injector zinc 50 mg tablet 50 mg PO DAILY 06/19/23 06/19/23 History clopidogrel 75 mg tablet mg PO 07/17/23 History Allergies Allergies Allergy/AdvReac Type Severity Reaction Status Date / Time No Known Allergies Allergy Verified 05/09/23 10:04 Labs 07/18/23 05:15 07/18/23 05:15 Labs: Laboratory POC Glucose (mg/dL) 298 mg/dL (65-99) H 07/17/23 19:45 Review of Systems Constitutional: See HPI Eyes: No Symptoms Reported ENT: No Symptoms Reported Respiratory: No Symptoms Reported Cardiovascular: No Symptoms Reported Gastrointestinal: No Symptoms Reported Genitourinary: No Symptoms Reported Musculoskeletal: See HPI Skin: See HPI Neurological: No Symptoms Reported Physical Exam Vital Signs: Vital Signs Temperature 100.6 F Temperature 100.1 F Pulse Rate [Left Brachial] 98 Pulse Rate [Left Brachial] 95 Pulse Rate 95 Respiratory Rate 16 Respiratory Rate 22 Respiratory Rate 16 Respiratory Rate 14 Blood Pressure [Left Arm] 116/69 Blood Pressure [Left Arm] 167/73 O2 Sat by Pulse Oximetry 94 O2 Sat by Pulse Oximetry 94 O2 Sat by Pulse Oximetry 93 Oriented: Normal, Time, Person and Place Eyes: Normal Ear: Normal Nose: Normal Throat: Normal Respiratory: Clear Throughout Cardiovascular: Normal : Normal Auscultation: Bowel Sounds: Normal Palpation: Normal Tenderness: Normal Skin: Wound ([id number] wound right posterior lateral heel with soft eschar) Musculoskeletal: Foot (healed right transmetatarsal amputation ) Psychiatric: Anxiety and Agitation Mood Description: Calm Affect: Normal Speech Pattern: Clear and Appropriate Assessment/Plan (1) Atherosclerosis of [place] arteries of extremities with rest pain, right leg: Status: Acute Plan: stable (2) Atherosclerosis of [place] arteries of extremities with rest pain, left leg: Status: Acute Plan: stable (3) Personal history of cerebrovascular accident with current residual effects: Status: Acute (4) Chronic ischemic heart disease, unspecified: Status: Acute (5) Essential (primary) hypertension: Status: Acute (6) Osteomyelitis of second toe of right foot: Status: Acute (7) Type 2 diabetes mellitus without complications: Status: Acute (8) Depression: Status: Acute (9) Decubitus ulcer, heel, right, unstageable: Status: Acute Plan: MRI right ffot, IV antibiotics, Dr. Diaz ordered MRI of the right foot. Dr. Diaz planning debridement of the the right heel ulcer
--- NOTE | 2023-07-18 22:15 | NOTE.SOAP ---
Soap Note Note for Day of Date of Exam: 07/18/23 Subjective Data Subjective Data: Patient stable. MRI right foot still pending Objective Data Temperature: 98.3 F Pulse Rate: 69 Blood Pressure: 132/59 Objective Data: Wound unchanged right heel, Hgb=8.9, Cr=1.67, WBC=5.6 Assessment Assessment: Pressure wound right heel, arterial flow right foot aduquate Plan Plan: MRI right foot. Dr. Diaz planning debredement right heel wound tomorrow.
[2023-07-18] MEDS: ZOSYN VIAL 3.375 GRAMS 3.375 G in NS 100 ML IV 100 ML IV SCH (22:27)
[2023-07-18] MEDS: HIBICLENS WASH EXT ONE (22:42)
--- NOTE | 2023-07-19 05:44 | RAD ---
PROCEDURE: Chest X-ray 1 View. HISTORY: PRE-OP INFECTED RIGHT HEEL WOUND ; CVA,HTN, COPD, DM SX: SELIN HYST, NEPHRECTOMY, PICC LINE . TECHNIQUE: AP portable view. COMPARISON: 06/19/2023. TECHNICAL QUALITY: Satisfactory. FINDINGS: Normal size heart. Mediastinum and hilar regions show no masses or lymphadenopathy. Normal central vascularity. No pulmonary consolidation, masses, pleural fluid, or pneumothorax. No acute bony abnormality. IMPRESSION: No evidence of active cardiopulmonary disease. THIS IS AN ELECTRONICALLY VERIFIED FINAL REPORT 07/19/2023 5:41 AM - Electronically signed by Ganesh Mcneal MD
--- NOTE | 2023-07-19 08:33 | MRI ---
EXAM:EXT LOWER NON-JOINT W/O CONHISTORY:EVAL FOR OSTEOMYELITIS ; CVA,HTN, COPD, DM SX: SELIN HYST, NEPHRECTOMY, PICC LINECOMPARISON:None.TECHNIQUE:Multiplana r MRI of the right foot was performed. Images include the midfoot and hindfoot.FINDINGS:There is an ulcer in the lateral soft tissues along the calcaneus. There is bone marrow edema posteriorly in the calcaneus. There is ill-defined signal measuring 1.5 x 1.39 cm which may represent developing phlegmon or intra osseous abscess. No other areas of bone marrow edema are noted.No fracture or dislocation. Alignment and joint spaces are maintained. The subtalar joint is intact. Visualized flexor and extensor tendons demonstrate normal signal. The Achilles tendon is intact. There is a minimal joint effusion noted. Soft tissue swelling. No organized subcutaneous abscess is seen. Study degraded by motion and lack of contrast.IMPRESSION:Findings suggest osteomyelitis of the right calcaneus.Ill-defined signal abnormality posteriorly which may represent developing phlegmon and/or intraosseous abscess. Consider orthopedic evaluation.THIS IS AN ELECTRONICALLY VERIFIED FINAL REPORT07/19/2023 8:22 AM - Electronically signed by Andrew Carrasquillo MD
--- NOTE | 2023-07-19 10:20 | NOTE.SOAP ---
Soap Note Note for Day of Date of Exam: 07/19/23 Subjective Data Subjective Data: Patient resting comfotably , for debridement of right heel wound later today. Objective Data Temperature: 98.1 F Pulse Rate: 65 Respiratory Rate: 20 Blood Pressure: 113/58 O2 Sat by Pulse Oximetry: 100 Objective Data: No change in wound Assessment Assessment: Pressure wound right hel Plan Plan: Debide woiund today, probablr discharge tomorrow .
[2023-07-19] MEDS: NS 1,000 ML IV 1,000 ML ONE (11:04)
[2023-07-19] MEDS: NS 100 ML IV 100 ML ONE (11:17)
[2023-07-19] MEDS: DIPRIVAN VIAL 20 ML ONE (11:17)
[2023-07-19] MEDS: FENTANYL VIAL INJ 100 mcg ONE (11:17)
[2023-07-19] MEDS: VERSED ONE (11:17)
[2023-07-19] MEDS: MARCAINE 0.25% INJ ONE (11:17)
[2023-07-19] MEDS: ANCEF VIAL 1 GRAM ONE (11:17)
[2023-07-19] MEDS: BETADINE SOLN ONE (11:17)
[2023-07-19] MEDS: TOBRAMYCIN SULFATE ONE (11:28)
[2023-07-19] MEDS: VANCOMYCIN HCL ONE (11:28)
--- NOTE | 2023-07-20 06:21 | NOTE.SOAP ---
Soap Note Note for Day of Date of Exam: 07/20/23 Subjective Data Subjective Data: Patient is POD1 s/p right foot wound debridement with bone biopsy and implantation of antibiotic cement. She was resting this morning, nurses deny any symptoms or complaints throughout the night. She is ready to be discharged. Objective Data Objective Data: Dressing c/d/i without strikethrough. No changes to neurovascular status Assessment Assessment: Arterial pressure ulcer, right heel osteomyelitis, right calcaneus Critical limb ischemia Plan Plan: Patient seen bedside this am; doing ok sleeping comfortably. Dressings c/d/i without strikethrough. She is to keep heel floating at all times. MRI confirmed osteomyelitis in the calcaneus. Biopsies collected in surgery. Patient will be going home on a long course of doxycycline but she will require an additional surgery based on the biopsy results; bone debridement vs amputation. Patient ok for discharge from a podiatry standpoint; home health dressing change orders in the chart
[2023-07-20 09:44] VITALS: BP 154/69; PULSE 84; TEMP 98; O2SAT 95
--- NOTE | 2023-07-20 10:15 | W.DIS.FURT ---
Summary of Discharge Discharge Summary of Date Date of Exam: 07/20/23 Admission Date Date of Admission: 07/17/23 Admission Diagnosis Hospital Course: This is a 67 year old female with diabetes and morbid obesity who has had bilateral lowere extremity arterial interventions with multiple toes amputated from the left foot and subsequent right transmetatarsal amputation. She has had follow-up Doppler studies recently showing adequate blood flow to the right and left legs. She was admitted 07/17/2023 with a decubitis ulcer measuring 3 to 5 cm of the right lateral, posterior heel. She was placed on IV antibiotics and underwent debridement by Dr. Diaz of Podiatry with placement of antibiotic beads and dressing. She will be discharged today and follow up with him in 1 week. I will see her in follow up in 1 month. No change in medications. She will be returned to the same [facility] she came from . Vital Signs: Vital Signs (72 hours) 07/18/23 22:14 07/19/23 10:20 07/17/23 17:32 Temperature 98.3 F 98.1 F 100.1 F H Pulse Rate 69 65 Pulse Rate [Left Brachial] 95 H Respiratory Rate 20 14 Blood Pressure 132/59 113/58 Blood Pressure [Left Arm] 167/73 Blood Pressure [Right Arm] O2 Sat by Pulse Oximetry 100 93 L Oxygen Delivery Method Room Air Oxygen Flow Rate FIO2% 07/17/23 18:14 07/17/23 19:39 07/17/23 20:00 Temperature 100.6 F H Pulse Rate Pulse Rate [Left Brachial] 98 H Respiratory Rate 16 22 Blood Pressure Blood Pressure [Left Arm] 116/69 Blood Pressure [Right Arm] O2 Sat by Pulse Oximetry 94 L Oxygen Delivery Method Room Air Room Air Oxygen Flow Rate FIO2% 07/17/23 20:20 07/17/23 20:20 07/17/23 20:39 Temperature Pulse Rate 95 H Pulse Rate [Left Brachial] Respiratory Rate 16 Blood Pressure Blood Pressure [Left Arm] Blood Pressure [Right Arm] O2 Sat by Pulse Oximetry 94 L Oxygen Delivery Method Nasal Cannula Oxygen Flow Rate 2 FIO2% 28 07/17/23 19:00 07/18/23 00:00 07/18/23 04:00 Temperature 98.9 F 98.3 F Pulse Rate Pulse Rate [Left Brachial] 72 71 Respiratory Rate 20 19 Blood Pressure Blood Pressure [Left Arm] 109/61 126/64 Blood Pressure [Right Arm] O2 Sat by Pulse Oximetry 99 100 Oxygen Delivery Method Room Air Room Air Room Air Oxygen Flow Rate FIO2% 07/18/23 08:00 07/18/23 07:00 07/18/23 09:12 Temperature 98.5 F Pulse Rate Pulse Rate [Left Brachial] 81 Respiratory Rate 18 Blood Pressure Blood Pressure [Left Arm] 134/58 Blood Pressure [Right Arm] O2 Sat by Pulse Oximetry 98 Oxygen Delivery Method Room Air Room Air Nasal Cannula Oxygen Flow Rate 2 FIO2% 28 07/18/23 09:12 07/18/23 12:00 07/18/23 16:00 Temperature 98.0 F 98.3 F Pulse Rate 89 Pulse Rate [Left Brachial] 68 69 Respiratory Rate 18 18 Blood Pressure Blood Pressure [Left Arm] 123/58 132/59 Blood Pressure [Right Arm] O2 Sat by Pulse Oximetry 97 100 93 L Oxygen Delivery Method Room Air Room Air Oxygen Flow Rate FIO2% 07/18/23 19:35 07/18/23 20:35 07/18/23 19:00 Temperature Pulse Rate Pulse Rate [Left Brachial] Respiratory Rate 18 18 Blood Pressure Blood Pressure [Left Arm] Blood Pressure [Right Arm] O2 Sat by Pulse Oximetry Oxygen Delivery Method Room Air Oxygen Flow Rate FIO2% 07/18/23 20:05 07/18/23 20:05 07/18/23 20:00 Temperature 98.3 F Pulse Rate 77 Pulse Rate [Left Brachial] 91 H Respiratory Rate 20 Blood Pressure Blood Pressure [Left Arm] 156/67 Blood Pressure [Right Arm] O2 Sat by Pulse Oximetry 94 L 91 L Oxygen Delivery Method Nasal Cannula Room Air Oxygen Flow Rate 2 FIO2% 28 07/19/23 00:00 07/19/23 04:00 07/19/23 13:50 Temperature 98.4 F 98 F Pulse Rate Pulse Rate [Left Brachial] 61 72 Respiratory Rate 21 21 16 Blood Pressure Blood Pressure [Left Arm] 105/57 143/66 Blood Pressure [Right Arm] O2 Sat by Pulse Oximetry 97 98 Oxygen Delivery Method Room Air Room Air Oxygen Flow Rate FIO2% 07/19/23 07:00 07/19/23 08:00 07/19/23 09:43 Temperature 98.1 F Pulse Rate 66 Pulse Rate [Left Brachial] 65 Respiratory Rate 20 Blood Pressure Blood Pressure [Left Arm] 113/58 Blood Pressure [Right Arm] O2 Sat by Pulse Oximetry 100 99 Oxygen Delivery Method Room Air Room Air Oxygen Flow Rate FIO2% 07/19/23 09:43 07/19/23 11:06 07/19/23 12:05 Temperature 97.9 F Pulse Rate 68 Pulse Rate [Left Brachial] 63 Respiratory Rate 18 16 Blood Pressure 124/54 Blood Pressure [Left Arm] 136/60 Blood Pressure [Right Arm] O2 Sat by Pulse Oximetry 97 97 Oxygen Delivery Method Nasal Cannula Nasal Cannula Room Air Oxygen Flow Rate 2 2 FIO2% 28 07/19/23 12:20 07/19/23 12:35 07/19/23 12:50 Temperature 97.9 F 97.7 F 97.9 F Pulse Rate Pulse Rate [Left Brachial] 60 60 76 Respiratory Rate 16 16 18 Blood Pressure Blood Pressure [Left Arm] 121/60 133/60 130/80 Blood Pressure [Right Arm] O2 Sat by Pulse Oximetry 100 95 94 L Oxygen Delivery Method Room Air Room Air Room Air Oxygen Flow Rate 2 2 2 FIO2% 07/19/23 13:05 07/19/23 14:05 07/19/23 14:50 Temperature 97.6 F 98.0 F Pulse Rate Pulse Rate [Left Brachial] 77 73 Respiratory Rate 20 18 16 Blood Pressure Blood Pressure [Left Arm] 131/82 129/59 Blood Pressure [Right Arm] O2 Sat by Pulse Oximetry 94 L 100 Oxygen Delivery Method Room Air Room Air Oxygen Flow Rate 2 2 FIO2% 07/19/23 15:05 07/19/23 16:05 07/19/23 17:03 Temperature 98.0 F 98.1 F 98.3 F Pulse Rate Pulse Rate [Left Brachial] 65 67 63 Respiratory Rate 19 20 18 Blood Pressure Blood Pressure [Left Arm] 100/48 103/51 93/50 Blood Pressure [Right Arm] O2 Sat by Pulse Oximetry 100 100 99 Oxygen Delivery Method Room Air Room Air Room Air Oxygen Flow Rate 2 2 2 FIO2% 07/19/23 19:47 07/20/23 02:48 07/19/23 20:47 Temperature Pulse Rate Pulse Rate [Left Brachial] Respiratory Rate 20 22 18 Blood Pressure Blood Pressure [Left Arm] Blood Pressure [Right Arm] O2 Sat by Pulse Oximetry Oxygen Delivery Method Oxygen Flow Rate FIO2% 07/19/23 19:00 07/19/23 20:00 07/20/23 00:00 Temperature 98.5 F 98.5 F Pulse Rate Pulse Rate [Left Brachial] 72 73 Respiratory Rate 20 20 Blood Pressure Blood Pressure [Left Arm] 140/76 129/61 Blood Pressure [Right Arm] O2 Sat by Pulse Oximetry 100 99 Oxygen Delivery Method Room Air Room Air Room Air Oxygen Flow Rate FIO2% 07/20/23 03:48 07/20/23 04:00 07/19/23 21:25 Temperature 98.6 F Pulse Rate Pulse Rate [Left Brachial] 69 Respiratory Rate 19 20 Blood Pressure Blood Pressure [Left Arm] Blood Pressure [Right Arm] 116/54 O2 Sat by Pulse Oximetry 95 Oxygen Delivery Method Room Air Nasal Cannula Oxygen Flow Rate 2 FIO2% 28 07/19/23 21:25 07/20/23 06:12 07/20/23 06:15 Temperature Pulse Rate 71 74 Pulse Rate [Left Brachial] Respiratory Rate Blood Pressure Blood Pressure [Left Arm] Blood Pressure [Right Arm] O2 Sat by Pulse Oximetry 99 92 L Oxygen Delivery Method Nasal Cannula Oxygen Flow Rate 2 FIO2% 28 07/20/23 08:39 07/20/23 09:14 07/20/23 08:00 Temperature 98 F Pulse Rate Pulse Rate [Left Brachial] 84 Respiratory Rate 20 16 Blood Pressure Blood Pressure [Left Arm] Blood Pressure [Right Arm] 154/69 O2 Sat by Pulse Oximetry 95 Oxygen Delivery Method Nasal Cannula Room Air Oxygen Flow Rate 2 FIO2% 28 07/20/23 07:00 Temperature Pulse Rate Pulse Rate [Left Brachial] Respiratory Rate Blood Pressure Blood Pressure [Left Arm] Blood Pressure [Right Arm] O2 Sat by Pulse Oximetry Oxygen Delivery Method Room Air Oxygen Flow Rate FIO2% Labs: Laboratory Last Values WBC 5.6 X10^3/uL (3.6-10.0) 07/18/23 05:15 RBC 3.05 X10^6/uL (3.5-5.4) L 07/18/23 05:15 Hgb 8.9 g/dL (12.0-16.0) L 07/18/23 05:15 Hct 27.7 % (36.0-47.0) L 07/18/23 05:15 MCV 90.9 fL (80.0-100.0) 07/18/23 05:15 MCH 29.3 pg (27.0-34.0) 07/18/23 05:15 MCHC 32.2 g/dL (33.0-35.0) L 07/18/23 05:15 RDW 23.0 % (11.6-16.5) H 07/18/23 05:15 Plt Count 197 X10^3/uL (150.0-450.0) 07/18/23 05:15 Plt Count Comment Adequate (ADEQUATE) 07/18/23 05:15 MPV 7.8 fL (7.4-11.0) 07/18/23 05:15 Neut % (Auto) 55.5 % (42.0-75.0) 07/18/23 05:15 Lymph % (Auto) 31.8 % (21.0-51.0) 07/18/23 05:15 [place] % (Auto) 10.7 % (0.0-13.0) 07/18/23 05:15 Eos % (Auto) 1.7 % (0.9-2.9) 07/18/23 05:15 Baso % (Auto) 0.3 % (0.2-1.0) 07/18/23 05:15 Neut # (Auto) 3.1 x10^3/uL (2.2-4.8) 07/18/23 05:15 Lymph # (Auto) 1.8 X10^3/uL (1.3-2.9) 07/18/23 05:15 [place] # (Auto) 0.6 x10^3/uL (0.3-0.8) 07/18/23 05:15 Eos # (Auto) 0.1 x10^3/uL (0.0-0.2) 07/18/23 05:15 Baso # (Auto) 0.0 X10^3/uL (0.0-0.1) 07/18/23 05:15 Absolute Nucleated RBC 0.1 /100WBC 07/18/23 05:15 Plt Morphology Comment Normal (NORMAL) 07/18/23 05:15 RBC Morphology Abnormal (NORMAL) A 07/18/23 05:15 Anisocytosis 2+ A 07/18/23 05:15 Spherocytes Slight A 07/18/23 05:15 Sodium 138 mmol/L (136-145) 07/18/23 05:15 Corrected Sodium 140 mmol/L (136-145) 07/18/23 05:15 Potassium 5.1 mmol/L (3.5-5.1) 07/18/23 05:15 Chloride 105 mmol/L (98-107) 07/18/23 05:15 Carbon Dioxide 28.3 mmol/L (21-32) 07/18/23 05:15 BUN 28 mg/dL (7-18) H 07/18/23 05:15 Creatinine 1.67 mg/dL (0.55-1.02) H 07/18/23 05:15 Est GFR (MDRD) Af Amer 39 (>60) L 07/18/23 05:15 Est GFR (MDRD) Non-Af 33 (>60) L 07/18/23 05:15 Glucose 175 mg/dL (65-99) H 07/18/23 05:15 POC Glucose (mg/dL) 169 mg/dL (65-99) H 07/20/23 05:51 Calcium 9.8 mg/dL (8.5-10.1) 07/18/23 05:15 Corrected Calcium 11.3 mg/dL (8.5-10.1) H 07/18/23 05:15 Magnesium 2.1 mg/dL (2.0-2.9) 07/18/23 05:15 Total Bilirubin 0.30 mg/dL (0.2-1.0) 07/18/23 05:15 AST 17 Units/L (15-37) 07/18/23 05:15 ALT 17 Units/L (12-78) 07/18/23 05:15 Alkaline Phosphatase 159 Units/L (46-116) H 07/18/23 05:15 Total Protein 7.3 g/dL (6.4-8.2) 07/18/23 05:15 Albumin 2.1 g/dL (3.4-5.0) L 07/18/23 05:15 Globulin 5.2 g/dL (2.5-4.5) H 07/18/23 05:15 Albumin/Globulin Ratio 0.4 Ratio (1.1-2.1) L 07/18/23 05:15 Reason For Visit: INFECTED RIGHT HEEL WOUND Discharge Date Discharge Date: 07/20/23 Discharge Diagnosis All Active Problems (Updated 07/18/23 @ 22:00 by Valentin Villar) Decubitus ulcer, heel, right, unstageable (Acute) Cellulitis of left foot (Acute) Acute UTI (Acute) Altered mental status (Acute) Gangrene of toe of left foot (Acute) Atherosclerosis of [place] arteries of extremities with rest pain, right leg (Acute) Atherosclerosis of [place] arteries of extremities with rest pain, left leg (Acute) Personal history of cerebrovascular accident with current residual effects (Acute) Chronic ischemic heart disease, unspecified (Acute) Essential (primary) hypertension (Acute) Osteomyelitis of second toe of right foot (Acute) Type 2 diabetes mellitus without complications (Acute) Depression (Acute) Plan of Treatment: Continue with present treatment and follow up plan. Pt is to keep follow up appointment as instructed and take medications as ordered. Discharge Medications Discharge Medications: No Known Allergies Allergy (Verified 05/09/23 10:04) CONTINUE taking the following medications clopidogrel 75 mg tablet 75 mg PO DAILY 07/17/23 [History] oxycodone-acetaminophen 5 mg-325 mg tablet (Percocet) 1 tab PO Q6H PRN Pain 07/18/23 [History] New Prescriptions doxycycline hyclate 100 mg capsule 100 mg PO BID #60 caps 07/19/23 [Rx] Discharge Disposition Assessment: see hospital course Discharge Plan Discharge Plan Hospital Course: This is a 67 year old female with diabetes and morbid obesity who has had bilateral lowere extremity arterial interventions with multiple toes amputated from the left foot and subsequent right transmetatarsal amputation. She has had follow-up Doppler studies recently showing adequate blood flow to the right and left legs. She was admitted 07/17/2023 with a decubitis ulcer measuring 3 to 5 cm of the right lateral, posterior heel. She was placed on IV antibiotics and underwent debridement by Dr. Diaz of Podiatry with placement of antibiotic beads and dressing. She will be discharged today and follow up with him in 1 week. I will see her in follow up in 1 month. No change in medications. She will be returned to the same [facility] she came from . Patient Disposition: 01 HOME, SELF-CARE Condition: Stable Health Concerns: Post Hospitalization: new medications and changes needed to prevent readmission or further decline. Pt educated and given instructions on all concerns. Plan of Treatment: Continue with present treatment and follow up plan. Pt is to keep follow up appointment as instructed and take medications as ordered. Assessment: see hospital course Prescription drug monitoring program results: PDMP reviewed and no concerns identified Prescriptions: New doxycycline hyclate 100 mg capsule 100 mg PO BID Qty: 60 0RF Rx Instructions: Take 1 tab PO BID Continued lorazepam 0.5 mg Tablet 0.5 mg PO Q6H PRN calamine Lotion 1 ea TOPICAL Q6H PRN Rx Instructions: apply to buttocks/noé area q6hrs prn irritation ferrous sulfate 325 mg (65 mg iron) Tablet 325 mg PO BID zinc 50 mg Tablet 50 mg PO DAILY nystatin 100,000 unit/gram Powder 1 applic TOPICAL TID Rx Instructions: apply to abdominal folds / perineal topically three times a day for yeast / irritation multivitamin,[id number]-min Tablet 1 tab PO DAILY teriparatide 20 mcg/dose (600mcg/2.4mL) pen injector 20 mcg SUBCUT DAILY Patient Comments: [NO ORIGINAL SIG] ascorbic acid (vitamin C) 500 mg Capsule 500 mg PO DAILY clopidogrel 75 mg tablet 75 mg PO DAILY oxycodone-acetaminophen [Percocet] 5-325 mg tablet 1 tab PO Q6H MDD 4 PRN (Reason: Pain) atorvastatin 40 mg tablet 40 mg PO HS methocarbamol 500 mg tablet 500 mg PO HS clopidogrel 75 mg tablet 75 mg PO QDAY gabapentin 800 mg tablet 800 mg PO TID rivastigmine tartrate 4.5 mg capsule 4.5 mg PO BID lisinopril 2.5 mg tablet 2.5 mg PO QDAY metoprolol tartrate 25 mg tablet 12.5 mg PO BID duloxetine 30 mg capsule,delayed release(DR/EC) 30 mg PO BID Myrbetriq 50 mg tablet extended release 24 hr 50 mg PO QDAY Jardiance 25 mg tablet 25 mg PO QDAY aspirin 81 mg Tablet,Chewable 81 mg PO QDAY docusate sodium [Colace] 100 mg Capsule 100 mg PO BID diphenhydramine HCl 25 mg Capsule 25 mg PO TID PRN (Reason: Itching) oxycodone-acetaminophen 5-325 mg Tablet 1 tab PO Q6H PRN polyethylene glycol 3350 17 gram Powder In Packet 17 g PO DAILY calcium carbonate 600 mg calcium (1,500 mg) Tablet 600 mg PO BID melatonin 5 mg Tablet 10 mg PO HS insulin glargine 100 unit/mL Cartridge 20 unit SUBCUT QAM insulin glargine [Lantus Solostar U-100 Insulin] 100 unit/mL (3 mL) Insulin Pen 20 unit SUBCUT QHS insulin lispro 100 unit/mL Solution 1 sliding scale dose SUBCUT USEASDIRECTD Rx Instructions: per sliding scale Xarelto 2.5 mg tablet 2.5 mg PO BID Qty: 180 0RF olanzapine 5 mg tablet 10 mg PO HS cholecalciferol (vitamin D3) [Vitamin D3] 125 mcg (5,000 unit) Tablet 125 mcg PO QDAY Biofreeze (menthol) 4 % Gel 1 applic TOPICAL DAILY PRN fluticasone propion-salmeterol [Advair Diskus] 250-50 mcg/dose Blister With Device 1 inh INHALATION BID dextrose 40 % Gel 1 ea PO PRN PRN glucagon 1 mg Recon Soln 1 mg IM PRN PRN cyanocobalamin (vitamin B-12) 1,000 mcg/mL Kit 1,000 mcg IM MONTHLY Rx Instructions: Give on the first of the month Follow ups/Referrals Follow ups/Referrals: Valentin Villar [Primary Care Provider] - 1 WEEK Instructions Stand Alone Forms: Excuse From Work or School, Post Hospital Follow Up Care
[2023-07-20 11:16] VITALS: RESP 19
== END 2023-07-20 11:57 | DRG 571 ==
LOC: MED/SURG 17:28
PROVIDERS: ADMIT Surgery; ATTEND Surgery
PROC: DEBRIDE (2023-07-19 10:45)
DX: Z89.421 Acquired absence of other right toe(s); F32.A Depression, unspecified; I10 Essential (primary) hypertension; Z89.422 Acquired absence of other left toe(s); M86.8X7 Other osteomyelitis, ankle and foot; E11.621 Type 2 diabetes mellitus with foot ulcer; J44.9 Chronic obstructive pulmonary disease, unspecified; E11.65 Type 2 diabetes mellitus with hyperglycemia; Z68.31 Body mass index [BMI] 31.0-31.9, adult; R94.31 Abnormal electrocardiogram [ECG] [EKG]; I25.10 Atherosclerotic heart disease of native coronary artery without angina pectoris; I70.223 Atherosclerosis of native arteries of extremities with rest pain, bilateral legs; E66.01 Morbid (severe) obesity due to excess calories; R26.89 Other abnormalities of gait and mobility; I69.90 Unspecified sequelae of unspecified cerebrovascular disease; L89.610 Pressure ulcer of right heel, unstageable

== ENCOUNTER 2023-12-04 10:31 | Inpatient (IN) ==
[2023-12-04] MEDS ORDERED: PROVENTIL NEB TX 0.083% 2.5MG/ 3ML NEB PRN (12:00)
[2023-12-04 12:44] LABS: BASOPHILS # (AUTO) 0.1 X10^3/uL (0.0-0.1); BASOPHILS % (AUTO) 1.4 % (0.2-1.0); EOSINOPHILS # (AUTO) 0.1 x10^3/uL (0.0-0.2); EOSINOPHILS % (AUTO) 0.7 % (0.9-2.9); HEMATOCRIT 32.4 % (36.0-47.0); HEMOGLOBIN 10.4 g/dL (12.0-16.0); LYMPHOCYTES # (AUTO) 1.3 X10^3/uL (1.3-2.9); LYMPHOCYTES % (AUTO) 17.3 % (21.0-51.0); MEAN CORPUSCULAR HEMOGLOBIN 32.4 pg (27.0-34.0); MEAN CORPUSCULAR HGB CONC 32.2 g/dL (33.0-35.0); MEAN CORPUSCULAR VOLUME 100.6 fL (80.0-100.0); MEAN PLATELET VOLUME 7.3 fL (7.4-11.0); MONOCYTES # (AUTO) 0.3 x10^3/uL (0.3-0.8); MONOCYTES % (AUTO) 4.2 % (0.0-13.0); NEUTROPHILS # (AUTO) 5.8 x10^3/uL (2.2-4.8); NEUTROPHILS % (AUTO) 76.4 % (42.0-75.0); PLATELET COUNT 286 X10^3/uL (150.0-450.0); RED BLOOD COUNT 3.22 X10^6/uL (3.5-5.4); RED CELL DISTRIBUTION WIDTH 19.2 % (11.6-16.5); WHITE BLOOD COUNT 7.6 X10^3/uL (3.6-10.0)
[2023-12-04 12:54] LABS: ALBUMIN 2.5 g/dL (3.4-5.0); CARBON DIOXIDE 30.6 mmol/L (21-32); COR CA(FOR HYPOALB) 10.2 mg/dL (8.5-10.1); CREATININE 1.7 mg/dL (0.55-1.02); POTASSIUM 4.9 mmol/L (3.5-5.1); TOTAL PROTEIN 7.5 g/dL (6.4-8.2)
[2023-12-04] MEDS: DILAUDID INJ IVP PRN (13:13)
--- NOTE | 2023-12-04 13:56 | DR.UPDATE ---
H&P Update Prescription drug monitoring program results: PDMP was not reviewed H&P Reviewed: Yes Any changes to H&P?: No Patient was examined?: Yes Vital Signs: Temp Pulse Resp BP Pulse Ox O2 Del Method O2 Flow Rate 12/04/23 11:15 Room Air 2 12/04/23 13:13 22 12/04/23 13:00 108 H 24 92 L 12/04/23 13:00 119/56 12/04/23 12:31 99 H 25 H 91 L 12/04/23 12:00 92 H 31 H 94 L 12/04/23 11:30 99.2 F 77 23 93 L 12/04/23 11:20 79 21 87 L 12/04/23 11:20 91/46 12/04/23 11:20 91/46 12/04/23 11:17 80 22 12/04/23 11:17 100/48 12/04/23 11:17 100/48 12/04/23 11:14 83 12/04/23 11:20 Nasal Cannula 2 FiO2 12/04/23 11:15 12/04/23 13:13 12/04/23 13:00 12/04/23 13:00 12/04/23 12:31 12/04/23 12:00 12/04/23 11:30 12/04/23 11:20 12/04/23 11:20 12/04/23 11:20 12/04/23 11:17 12/04/23 11:17 12/04/23 11:17 12/04/23 11:14 12/04/23 11:20 28 Procedures (ALL) - Central Line Placement PCM.CLCO: written consent Time out performed: Yes Patient placed pm monitor/pulse ox: Yes MD prep: mask, gown, gloves, other Centrial line prep: chlorhexidine scrub, sterile drapes applied Local anesthsia used: lidocane 1% Ultrasound used for placement: Yes (left basilic id'd via u/s and cannulation visualized) Central line lumen ininserted: double (5.5fr arrowgard pressure picc. trimmed to 38cm, 0cm exposed. ) Post procedure: good blood return, all ports aspirated, flushed,capped, sterile dressing applied Post procedure xray: tip oc catheter in good position (appears superior svc. would advance 2cm, but trimmed catheter. radiology report pending) Patient tolerated procedure: Yes Complications: none
--- NOTE | 2023-12-04 14:56 | RAD ---
EXAM: CHEST, 1 VIEW HISTORY: PICC line placement; COMPARISON: 07/19/2023 FINDINGS: The cardiomediastinal silhouette is stable. Left PICC placement with tip overlying the SVC. Chronic appearing interstitial changes in the lungs. No acute airspace disease. No pneumothorax or ef fusion. No acute osseous abnormality. IMPRESSION: Expected positioning of left PICC with tip overlying the SVC. THIS IS AN ELECTRONICALLY VERIFIED FINAL REPORT 12/04/2023 2:53 PM - Electronically signed by Cayden Saunders MD
[2023-12-04] MEDS: NS 500 ML IV 500 ML IV ONE (19:42)
[2023-12-04] MEDS ORDERED: REFLEX: PROVENTIL NEB & PulmiCORT NEB~ NEB SCH (23:45)
--- NOTE | 2023-12-04 23:47 | DR.H&P ---
H&P History & Physical for Day of: H&P Date: 12/04/23 Chief Complaint Chief Complaint: Patient with significant ischemia both legs, s/p arterila intervention bothn legs within the last 6 months. Patient is resident of SNF and has increasig rest pain right leg with pallor. History of Present Illness History of Present Illness: As above , Patient has had atherectomy and stenting of the right superficial femoral artery as well as atherectomy and Drug coated balloon angioplasty of the right popliteal artery and atherectomy and Drug coated balloon angioplasty of t the right common femoral artery. Has had right to transmetatarsal amputation which has healed nicely. Complaints as above. Left leg has had multiple stents to the left superficial femoral artery as well as atherectomy and Drug coated balloon angioplasty of the left tibial- peroneal trunk and amputation of the left second toe which has healed. Creatin ine =1.7. Past Medical History Past Medical History: Anemia, Anxiety, Arthritis, COPD, Coronary Artery Disease, CVA, Dementia, Depression, Diabetes, Dyslipidemia, Hypertension and Renal Disease Past Surgical History Surgical History: Abdominal Surgery, Cholecystectomy, Ortho Surgery and Other Additional Surgical History: bilateral lower extremity arterial surgery Family History Family Medical History: Diabetes Mellitus Social History Does patient currently use any type of tobacco product: No Have you used tobacco products in the last 12 months: No Type of Tobacco Use: None Alcohol Use: None Drug Use: None Medications Home Medications: Home Medications Medication Instructions Recorded Confirmed Type aspirin 81 mg chewable tablet 81 mg PO QDAY 04/10/23 12/04/23 History atorvastatin 40 mg tablet 40 mg PO HS 04/10/23 12/04/23 History calcium carbonate 600 mg PO BID 04/10/23 12/04/23 History clopidogrel 75 mg tablet 75 mg PO HS DVT 04/10/23 12/04/23 History diphenhydramine HCl 25 mg capsule 25 mg PO Q8H PRN Itching 04/10/23 12/04/23 History docusate sodium 100 mg capsule 100 mg PO BID CONSTIPATION 04/10/23 12/04/23 History (Colace) duloxetine 30 mg capsule,delayed 30 mg PO DAILY 04/10/23 12/04/23 History release empagliflozin 25 mg tablet 25 mg PO QDAY DM 04/10/23 12/04/23 History (Jardiance) gabapentin 800 mg tablet 800 mg PO TID 04/10/23 12/04/23 History insulin glargine 100 unit/mL (3 20 unit subcut 04/10/23 07/18/23 History mL) subcutaneous pen (Lantus Solostar U-100 Insulin) insulin glargine 100 unit/mL 20 unit subcut QAM 04/10/23 07/18/23 History subcutaneous cartridge lisinopril 2.5 mg tablet 2.5 mg PO QDAY 04/10/23 12/04/23 History melatonin 5 mg tablet 10 mg PO HS 04/10/23 12/04/23 History methocarbamol 500 mg tablet 500 mg PO HS 04/10/23 07/18/23 History metoprolol tartrate 25 mg tablet 12.5 mg PO BID 04/10/23 07/18/23 History mirabegron 50 mg tablet,extended 50 mg PO QDAY 04/10/23 07/18/23 History release 24 hr (Myrbetriq) oxycodone-acetaminophen 5 mg-325 1 tab PO Q6H PRN 04/10/23 12/04/23 History mg tablet polyethylene glycol 3350 17 gram 17 g PO DAILY 04/10/23 07/18/23 History oral powder packet rivastigmine tartrate 4.5 mg 6 mg PO BID 04/10/23 12/04/23 History capsule insulin lispro 100 unit/mL 1 sliding scale dose subcut 04/11/23 07/18/23 History subcutaneous solution USEASDIRECTD cholecalciferol (vitamin D3) 125 125 mcg PO QDAY 05/01/23 12/04/23 History mcg (5,000 unit) tablet (Vitamin D3) menthol 4 % topical gel (Biofreeze 1 applic topical DAILY PRN 05/01/23 07/18/23 History (menthol)) olanzapine 5 mg tablet 10 mg PO HS 05/01/23 07/18/23 History cyanocobalamin (vitamin B-12) 1,000 mcg IM MONTHLY 05/09/23 12/04/23 History 1,000 mcg/mL injection kit dextrose 40 % oral gel 1 ea PO PRN PRN 05/09/23 07/18/23 History fluticasone 250 mcg-salmeterol 50 1 inh inhalation BID 05/09/23 07/18/23 History mcg/dose blistr powdr for inhalation (Advair Diskus) glucagon 1 mg solution for 1 mg IM PRN PRN Hypoglycemia 05/09/23 12/04/23 History injection ascorbic acid (vitamin C) 500 mg 500 mg PO DAILY 06/19/23 07/18/23 History capsule calamine 1 ea topical Q6H PRN 06/19/23 07/18/23 History ferrous sulfate 325 mg (65 mg 325 mg PO BID ANEMIA 06/19/23 12/04/23 History iron) tablet lorazepam 0.5 mg tablet 0.5 mg PO Q6H PRN 06/19/23 07/18/23 History multivitamin,mv-azwu-Gb-FA-min 1 tab PO DAILY 06/19/23 07/18/23 History nystatin 100,000 unit/gram topical 1 applic topical TID ABD folds and 06/19/23 12/04/23 History powder noé area teriparatide 20 mcg/dose (600 20 mcg subcut DAILY 06/19/23 07/18/23 History mcg/2.4 mL) subcutaneous pen injector zinc 50 mg tablet 50 mg PO DAILY 06/19/23 07/18/23 History oxycodone-acetaminophen 5 mg-325 1 tab PO Q6H PRN Pain 07/18/23 07/18/23 History mg tablet (Percocet) Saccharomyces boulardii 250 mg 250 mg PO BID DIARRHEA 12/04/23 12/04/23 History capsule (Florastor) fluticasone 250 mcg-salmeterol 50 1 ea inhalation BID COPD 12/04/23 12/04/23 History mcg/dose blistr powdr for inhalation rivaroxaban 2.5 mg tablet (Xarelto) 2.5 mg PO BID 12/04/23 12/04/23 History Allergies Allergies Allergy/AdvReac Type Severity Reaction Status Date / Time No Known Allergies Allergy Verified 12/04/23 11:08 Labs 12/04/23 12:30 12/04/23 12:30 Labs: Laboratory WBC 7.6 X10^3/uL (3.6-10.0) 12/04/23 12:30 RBC 3.22 X10^6/uL (3.5-5.4) L 12/04/23 12:30 Hgb 10.4 g/dL (12.0-16.0) L 12/04/23 12:30 Hct 32.4 % (36.0-47.0) L 12/04/23 12:30 MCV 100.6 fL (80.0-100.0) H 12/04/23 12:30 MCH 32.4 pg (27.0-34.0) 12/04/23 12:30 MCHC 32.2 g/dL (33.0-35.0) L 12/04/23 12:30 RDW 19.2 % (11.6-16.5) H 12/04/23 12:30 Plt Count 286 X10^3/uL (150.0-450.0) 12/04/23 12:30 MPV 7.3 fL (7.4-11.0) L 12/04/23 12:30 Neut % (Auto) 76.4 % (42.0-75.0) H 12/04/23 12:30 Lymph % (Auto) 17.3 % (21.0-51.0) L 12/04/23 12:30 [place] % (Auto) 4.2 % (0.0-13.0) 12/04/23 12:30 Eos % (Auto) 0.7 % (0.9-2.9) L 12/04/23 12:30 Baso % (Auto) 1.4 % (0.2-1.0) H 12/04/23 12:30 Neut # (Auto) 5.8 x10^3/uL (2.2-4.8) H 12/04/23 12:30 Lymph # (Auto) 1.3 X10^3/uL (1.3-2.9) 12/04/23 12:30 [place] # (Auto) 0.3 x10^3/uL (0.3-0.8) 12/04/23 12:30 Eos # (Auto) 0.1 x10^3/uL (0.0-0.2) 12/04/23 12:30 Baso # (Auto) 0.1 X10^3/uL (0.0-0.1) 12/04/23 12:30 Absolute Nucleated RBC 0.1 /100WBC 12/04/23 12:30 Sodium 135 mmol/L (136-145) L 12/04/23 12:30 Corrected Sodium 140 mmol/L (136-145) 12/04/23 12:30 Potassium 4.9 mmol/L (3.5-5.1) 12/04/23 12:30 Chloride 100 mmol/L (98-107) 12/04/23 12:30 Carbon Dioxide 30.6 mmol/L (21-32) 12/04/23 12:30 BUN 22 mg/dL (7-18) H 12/04/23 12:30 Creatinine 1.70 mg/dL (0.55-1.02) H 12/04/23 12:30 Est GFR (MDRD) Af Amer 39 (>60) L 12/04/23 12:30 Est GFR (MDRD) Non-Af 32 (>60) L 12/04/23 12:30 Glucose 322 mg/dL (65-99) H 12/04/23 12:30 POC Glucose (mg/dL) 130 mg/dL (65-99) H 12/04/23 20:24 Calcium 9.0 mg/dL (8.5-10.1) 12/04/23 12:30 Corrected Calcium 10.2 mg/dL (8.5-10.1) H 12/04/23 12:30 Total Bilirubin 0.20 mg/dL (0.2-1.0) 12/04/23 12:30 AST 18 Units/L (15-37) 12/04/23 12:30 ALT 17 Units/L (12-78) 12/04/23 12:30 Alkaline Phosphatase 136 Units/L (46-116) H 12/04/23 12:30 Total Protein 7.5 g/dL (6.4-8.2) 12/04/23 12:30 Albumin 2.5 g/dL (3.4-5.0) L 12/04/23 12:30 Globulin 5.0 g/dL (2.5-4.5) H 12/04/23 12:30 Albumin/Globulin Ratio 0.5 Ratio (1.1-2.1) L 12/04/23 12:30 Physical Exam Vital Signs: Vital Signs Temperature 98 F Temperature 98.8 F Pulse Rate 80 Pulse Rate 77 Pulse Rate 66 Pulse Rate 67 Pulse Rate 83 Pulse Rate 73 Pulse Rate 71 Pulse Rate 73 Pulse Rate 83 Pulse Rate 82 Pulse Rate 81 Pulse Rate 82 Pulse Rate 68 Pulse Rate 79 Pulse Rate 75 Pulse Rate 71 Pulse Rate 75 Pulse Rate 74 Pulse Rate 87 Pulse Rate 81 Pulse Rate 81 Pulse Rate 76 Pulse Rate 76 Pulse Rate 94 Pulse Rate 82 Pulse Rate 86 Pulse Rate 93 Pulse Rate 82 Respiratory Rate 27 Respiratory Rate 22 Respiratory Rate 19 Respiratory Rate 20 Respiratory Rate 22 Respiratory Rate 21 Respiratory Rate 22 Respiratory Rate 21 Respiratory Rate 23 Respiratory Rate 25 Respiratory Rate 24 Respiratory Rate 25 Respiratory Rate 18 Respiratory Rate 18 Respiratory Rate 17 Respiratory Rate 16 Respiratory Rate 17 Respiratory Rate 23 Respiratory Rate 16 Respiratory Rate 22 Respiratory Rate 19 Respiratory Rate 25 Respiratory Rate 20 Respiratory Rate 24 Respiratory Rate 22 Respiratory Rate 24 Respiratory Rate 19 Respiratory Rate 20 Respiratory Rate 24 Respiratory Rate 19 Blood Pressure 89/52 Blood Pressure 83/53 Blood Pressure 81/41 Blood Pressure 87/43 Blood Pressure 136/59 Blood Pressure 136/59 Blood Pressure 122/60 Blood Pressure 122/60 Blood Pressure 72/44 Blood Pressure 70/40 Blood Pressure 70/40 Blood Pressure 92/55 Blood Pressure 87/50 Blood Pressure 87/50 Blood Pressure 85/52 Blood Pressure 85/52 Blood Pressure 81/45 Blood Pressure 81/45 Blood Pressure 104/53 Blood Pressure 104/53 Blood Pressure 109/54 Blood Pressure 109/54 O2 Sat by Pulse Oximetry 97 O2 Sat by Pulse Oximetry 95 O2 Sat by Pulse Oximetry 97 O2 Sat by Pulse Oximetry 95 O2 Sat by Pulse Oximetry 97 O2 Sat by Pulse Oximetry 99 O2 Sat by Pulse Oximetry 97 O2 Sat by Pulse Oximetry 99 O2 Sat by Pulse Oximetry 97 O2 Sat by Pulse Oximetry 92 O2 Sat by Pulse Oximetry 90 O2 Sat by Pulse Oximetry 92 O2 Sat by Pulse Oximetry 95 O2 Sat by Pulse Oximetry 94 O2 Sat by Pulse Oximetry 93 O2 Sat by Pulse Oximetry 87 O2 Sat by Pulse Oximetry 93 O2 Sat by Pulse Oximetry 93 O2 Sat by Pulse Oximetry 91 O2 Sat by Pulse Oximetry 92 O2 Sat by Pulse Oximetry 93 O2 Sat by Pulse Oximetry 94 O2 Sat by Pulse Oximetry 93 O2 Sat by Pulse Oximetry 97 O2 Sat by Pulse Oximetry 92 O2 Sat by Pulse Oximetry 95 O2 Sat by Pulse Oximetry 96 O2 Sat by Pulse Oximetry 94 Oriented: Normal, Time, Person and Place Eyes: Normal Ear: Normal Nose: Normal Throat: Normal Respiratory: Clear Throughout Cardiovascular: Normal (right transmetatarsal amputation healed. Left second toe Ray amputation healed. Right foot with pallor noted. No palpable distal pulses right ankle no palpable pulses of the left leg noted ) : Normal Palpation: Normal Tenderness: Normal Skin: Normal Musculoskeletal: Normal (however globally weak LE ) Psychiatric: Normal Mood Description: Calm Affect: Normal Speech Pattern: Clear and Appropriate Assessment/Plan (1) Atherosclerosis of kash[place] arteries of extremities with rest pain, right leg: Status: Acute Plan: due to elevated creatinine will plan on table arteriogram of the aorta and right extremity to assess and intervene. Left leg may require this in the future. (2) Atherosclerosis of kashia arteries of extremities with rest pain, left leg: Status: Acute Plan: as above (3) Decubitus ulcer, heel, right, unstageable: Status: Acute Plan: now healed (4) Depression: Status: Acute Plan: home meds Review H&P Reviewed: Yes Patient was examined?: Yes
[2023-12-05] MEDS: ATIVAN TAB 0.5 MG PO PRN (00:38)
[2023-12-05] MEDS: HIBICLENS WASH EXT SCH (04:43)
[2023-12-05] MEDS: HIBICLENS WASH EXT ONE (05:17)
[2023-12-05] MEDS: TUMS PO SCH (05:45)
[2023-12-05] MEDS: ZyPREXA TAB 5 MG PO SCH (08:19)
[2023-12-05] MEDS: LIPITOR TAB 40 MG PO SCH (08:46)
[2023-12-05] MEDS: ASPIRIN EC 81 MG PO SCH (08:46)
[2023-12-05] MEDS: CYMBALTA PO SCH (08:46)
[2023-12-05] MEDS: MYRBETRIQ PO SCH (08:47)
[2023-12-05] MEDS: ZESTRIL TAB 5 MG PO SCH (08:47)
[2023-12-05] MEDS ORDERED: ZYPREXA IM SCH (09:00)
[2023-12-05] MEDS: NS 1,000 ML IV 1,000 ML ONE (09:24)
[2023-12-05] MEDS: VERSED ONE (09:27)
[2023-12-05] MEDS: DIPRIVAN VIAL 20 ML ONE (09:28)
[2023-12-05] MEDS: ZOFRAN INJ 4 MG VIAL ONE (09:28)
[2023-12-05] MEDS: PEPCID 20 MG VIAL ONE (09:28)
[2023-12-05] MEDS: FENTANYL VIAL INJ 100 mcg ONE (09:29)
[2023-12-05] MEDS: NS 100 ML IV 100 ML ONE (09:33)
[2023-12-05] MEDS: ANCEF VIAL 1 GRAM ONE (09:33)
[2023-12-05] MEDS: NEO-SYNEPHRINE INJ ONE (09:41)
[2023-12-05] MEDS: EPHEDRINE SULFATE INJ ONE (09:41)
[2023-12-05] MEDS: KETAMINE 50 MG/5 ML-NACL SYRNG ONE (09:43)
[2023-12-05] MEDS ORDERED: PRECEDEX INJ VIAL ONE (09:44)
[2023-12-05] MEDS: VISIPAQUE 50 ML ONE (10:03)
[2023-12-05] MEDS: VISIPAQUE 100 ML ONE (10:03)
[2023-12-05] MEDS: HEPARIN SODIUM IN D5W 75,000 UNITS/1,500 ML BAG ONE (10:03)
[2023-12-05] MEDS: MARCAINE 0.5% ONE (10:03)
[2023-12-05] MEDS: HEPARIN SODIUM INJ 5000 UNITS ONE ×2 (10:06→11:08)
[2023-12-05] MEDS ORDERED: PROTAMINE SULFATE 50 MG VIAL ONE (11:46)
[2023-12-05] MEDS: PROTAMINE SULFATE 50 MG VIAL ONE (11:47)
--- NOTE | 2023-12-05 11:55 | OR.IMMED ---
IMMEDIATE POST-OP NOTE Immediate Post-Op Note Date of surgery/procedure: 12/05/23 Pre-Op Diagnosis: Critical limb threatening ischemia right leg Post-Op Diagnosis: same Procedure: diagnostic aortogram, diagnostic arteriogram right leg, stenting of the right external iliac artery, intravascular ultrasound of the left common iliac artery, stenting of the popliteal and distal superficial femoral artery using 2 drug eluting stents Description of Procedure: see dication Surgeon/Court Officer: Jian Findings: Severe stenosis of the right distal external iliac artery, less than 50% stenosis of the left common iliac artery , severe stenosis and occlusion of the right distal superficial femoral and popliteal arteries, occluded right anterior artery, 2 vessel runoff of the right leg with small peroneal and posterior tibial arteries Estimated Blood Loss: 150 cc Complications: none Progress Notes: To ICU , begin Xarelto and aspirin, begin diet
[2023-12-05] MEDS: LR 1,000 ML IV 1,000 ML IV SCH (12:09)
[2023-12-05] MEDS: ATIVAN INJ 2 MG VIAL IVP PRN (16:11)
[2023-12-05] MEDS: PROVENTIL NEB TX 0.083% 2.5MG/ 3ML NEB SCH (18:38)
[2023-12-05] MEDS: SNACK - Diabetic Appropriate PO SCH (19:49)
[2023-12-05] MEDS: XARELTO PO SCH (21:08)
[2023-12-05] MEDS: LOPRESSOR TAB 50 MG PO SCH (21:12)
[2023-12-05] MEDS: MIRALAX POWDER (1 DOSE 17 G) PO SCH (21:14)
--- NOTE | 2023-12-05 22:15 | DR.OPNOTE ---
OP NOTE Pre-Op Diagnosis: critical ischemia right leg Post-Op Diagnosis: same Procedure Date Date Of Procedure: 12/05/23 Procedure: PROCEDURE: DIAGNOSTIC AORTOGRAM, DIAGNOSTIC ARTERIOGRAM RIGHT LEG NARRATIVE : The patient was taken to the operative suite and placed in the supine position. The left groin and entire right leg were prepped and draped in sterile fashion. The patient was given intravenous sedation supervised by myself. Time out for the procedure obtained. Ultrasound used to identify the left femoral artery and the skin overlying it infiltrated with 0.5% Marcaine. Ultrasound then used to guide puncture of the left femoral artery and a 0.012 inch guide wire was placed. Incision made over the guide wire at the skin edge with a # 11 knife blade and a micro sheath placed over the guide wire into the left femoral artery. The small guidewire exchanged for a 0.035 inch Advantage glide wire and the micro sheath exchanged for a 5 Fr vascular sheath. Patient given 5000 units of intravenous heparin. Omni catheter was placed over the guide wire into the aorta and diagnostic aortogram carried out with the power injector showing severe stenosis of the right distal external iliac artey. Omni catheter was used to steer the guide wire down the right common iliac artery to the distal right external iliac artery . Omni catheter was exchanged for a [place] catheter and sequential arteriograms carried out of the right lower extremity showing severe stenosis and occlusion of the right distal superficial femoral and popliteal arteries, occluded right anterior tibial artery, 2 vessel runoff of the right leg via a small peroneal and posterior tibial artery .Ultrasound used to identify the right femoral artery and the skin overlying it infiltrated with 0.5% Marcaine . Ultrasound used to guide puncture of the right femoral artery and a 0.012 inch guide wire placed. Incision made over this guide wire at the skin edge with a number 11 knife blade and a micro sheath placed over the guide wire into the right femoral artery. The small sheath exchanged for a 7 [place] vascular sheath and the small wire exchanged for a 0.035 inch Advantage glideware. Over the wire on the right side we placed an [place] 7 millimetre by 40 millimetre drug eluding stent and placed it over the area of severe stenosis of the right external iliac artery and then balloon dilated it with a 7 mm [place] balloon. From the left groin we placed a [place] catheter over the louis wire all the way down to the tibial peroneal trunk and then exchanged this wire for a 0.035 inch wire and exchanged the short sheath for a destination sheath placed in the proximal right superficial femorla artery. Over this wire we placed an [place] 6 millimeter x 150mm stent extending from the knee joint proximally and placed another stent proximal to this using an [place] 6 millimeter x 120 millimeter stent. Both of these were ballooned dilated with a [place] 4 millimeter x 200 millimeter balloon. Post-procedure arteriogram showed excellent results. Patient'ss run off did improve, again it is through 2 vessels via the peroneal and posterior which are small. Using the [place] catheter the 0.035 inch wire from left to right was exchanged for a 0.018 inch wire and we performed intra-vascular ultrasound using an Opti-cross catheter showing less than 50% stenosis of the takeoff of the left common iliac artery. All the wires and devices removed. Sheath in each groin exchanged for an Angio- seal device used to close the punctures.Dressings applied to each groin. The patient taken to the CCU in good condition. Type of Anesthesia: Local (0.5% marcaine ) Anesthesia Comment: plus MAC Findings: severe stenosis of the right distal external iliac artery, less than 50% stenosis of the left common iliac artery, severe stenosis and occlusion of the distal right superficial femoral artery and popliteal artery, occluded right anterior tibial artery, 2 vessel runoff of the right leg with small peroneal and posterior tibial arteries Type of Fluids Used:: Lactated Ringers Total Amount of Fluid Infused:: 600 cc Urine output: 450 cc EBL: 150 cc Hardware: Victoria 7 mm x 40 mm stent right external iliac artery, Victoria 6 mmx 150 mm stetn and Victoria 6 mm x 120 mm stent , both in the right distal SFA and polpliteal arteries . Complications:: none Needle/Sponge Count:: correct Disposition/Condition: Pt. tolerated procedure without difficulty. Taken to [facility] in stable condition.
[2023-12-06 04:19] VITALS: BMI 32.0
[2023-12-06 04:56] LABS: BASOPHILS # (AUTO) 0.1 X10^3/uL (0.0-0.1); BASOPHILS % (AUTO) 0.7 % (0.2-1.0); CALCIUM 9.6 mg/dL (8.5-10.1); CARBON DIOXIDE 30.2 mmol/L (21-32); CREATININE 1.31 mg/dL (0.55-1.02); EOSINOPHILS % (AUTO) 0.5 % (0.9-2.9); HEMATOCRIT 31.2 % (36.0-47.0); LYMPHOCYTES # (AUTO) 1.7 X10^3/uL (1.3-2.9); LYMPHOCYTES % (AUTO) 18.3 % (21.0-51.0); MEAN CORPUSCULAR HEMOGLOBIN 32.6 pg (27.0-34.0); MEAN CORPUSCULAR HGB CONC 32.2 g/dL (33.0-35.0); MEAN CORPUSCULAR VOLUME 101.1 fL (80.0-100.0); MEAN PLATELET VOLUME 7.5 fL (7.4-11.0); MONOCYTES # (AUTO) 0.5 x10^3/uL (0.3-0.8); MONOCYTES % (AUTO) 5.1 % (0.0-13.0); NEUTROPHILS # (AUTO) 7.1 x10^3/uL (2.2-4.8); NEUTROPHILS % (AUTO) 75.4 % (42.0-75.0); PLATELET COUNT 261 X10^3/uL (150.0-450.0); POTASSIUM 4.8 mmol/L (3.5-5.1); RED BLOOD COUNT 3.08 X10^6/uL (3.5-5.4); RED CELL DISTRIBUTION WIDTH 19.1 % (11.6-16.5); WHITE BLOOD COUNT 9.4 X10^3/uL (3.6-10.0)
[2023-12-06] MEDS: NovoLIN R (or HumuLIN R) SUBCUT PRN (05:39)
--- NOTE | 2023-12-06 10:50 | W.DIS.FURT ---
Summary of Discharge Discharge Summary of Date Date of Exam: 12/06/23 Admission Date Date of Admission: 12/04/23 Admission Diagnosis Hospital Course: This is a 67 year old female currently resident of a skilled nurse facility who has had bilateral lower extremity arterfial interventions by me in the past. She was reported to have pallor and ischemia with rest pain of both legs, right greater than left but on her presentation she denied any significant problem with her left leg. 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 She was admitted and CT angiogram could be obtained because of her creatinien of 1.70. 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 She tolerated this well with stenting of the right external iliac artery and stenting of the right superficial femoral and popliteal arteries . She will be discharged on her usual medications She'll follow up with me in 2 weeks. We will observe the left leg to see if anything needs to be done. Most likely will repeat Doppler studies. Vital Signs: Vital Signs (72 hours) 12/04/23 11:20 12/04/23 11:14 12/04/23 11:17 Temperature Pulse Rate 83 Pulse Rate [Radial] Respiratory Rate Blood Pressure 100/48 Blood Pressure [Right Arm] O2 Sat by Pulse Oximetry Oxygen Delivery Method Nasal Cannula Oxygen Flow Rate 2 FIO2% 28 12/04/23 11:17 12/04/23 11:17 12/04/23 11:20 Temperature Pulse Rate 80 Pulse Rate [Radial] Respiratory Rate 22 Blood Pressure 100/48 91/46 Blood Pressure [Right Arm] O2 Sat by Pulse Oximetry Oxygen Delivery Method Oxygen Flow Rate FIO2% 12/04/23 11:20 12/04/23 11:20 12/04/23 11:30 Temperature 99.2 F Pulse Rate 79 77 Pulse Rate [Radial] Respiratory Rate 21 23 Blood Pressure 91/46 Blood Pressure [Right Arm] O2 Sat by Pulse Oximetry 87 L 93 L Oxygen Delivery Method Oxygen Flow Rate FIO2% 12/04/23 12:00 12/04/23 12:31 12/04/23 13:00 Temperature Pulse Rate 92 H 99 H Pulse Rate [Radial] Respiratory Rate 31 H 25 H Blood Pressure 119/56 Blood Pressure [Right Arm] O2 Sat by Pulse Oximetry 94 L 91 L Oxygen Delivery Method Oxygen Flow Rate FIO2% 12/04/23 13:00 12/04/23 13:13 12/04/23 11:15 Temperature Pulse Rate 108 H Pulse Rate [Radial] Respiratory Rate 24 22 Blood Pressure Blood Pressure [Right Arm] O2 Sat by Pulse Oximetry 92 L Oxygen Delivery Method Room Air Oxygen Flow Rate 2 FIO2% 12/04/23 13:43 12/04/23 13:30 12/04/23 14:00 Temperature Pulse Rate 93 H 91 H Pulse Rate [Radial] Respiratory Rate 22 20 20 Blood Pressure Blood Pressure [Right Arm] O2 Sat by Pulse Oximetry 92 L 93 L Oxygen Delivery Method Oxygen Flow Rate FIO2% 12/04/23 14:05 12/04/23 14:05 12/04/23 14:30 Temperature Pulse Rate 91 H 95 H Pulse Rate [Radial] Respiratory Rate 20 20 Blood Pressure 98/53 Blood Pressure [Right Arm] O2 Sat by Pulse Oximetry 91 L 94 L Oxygen Delivery Method Oxygen Flow Rate FIO2% 12/04/23 15:00 12/04/23 15:30 12/04/23 16:00 Temperature Pulse Rate 92 H 86 82 Pulse Rate [Radial] Respiratory Rate 19 19 19 Blood Pressure Blood Pressure [Right Arm] O2 Sat by Pulse Oximetry 95 95 94 L Oxygen Delivery Method Oxygen Flow Rate FIO2% 12/04/23 16:22 12/04/23 16:22 12/04/23 16:22 Temperature 98.8 F Pulse Rate 93 H Pulse Rate [Radial] Respiratory Rate 24 Blood Pressure 109/54 109/54 Blood Pressure [Right Arm] O2 Sat by Pulse Oximetry 96 Oxygen Delivery Method Oxygen Flow Rate FIO2% 12/04/23 16:30 12/04/23 17:00 12/04/23 17:00 Temperature Pulse Rate 86 82 Pulse Rate [Radial] Respiratory Rate 20 19 Blood Pressure 104/53 Blood Pressure [Right Arm] O2 Sat by Pulse Oximetry 95 92 L Oxygen Delivery Method Oxygen Flow Rate FIO2% 12/04/23 17:00 12/04/23 17:30 12/04/23 18:00 Temperature Pulse Rate 94 H 76 Pulse Rate [Radial] Respiratory Rate 24 24 Blood Pressure 104/53 Blood Pressure [Right Arm] O2 Sat by Pulse Oximetry 97 93 L Oxygen Delivery Method Oxygen Flow Rate FIO2% 12/04/23 17:55 12/04/23 18:25 12/04/23 19:00 Temperature Pulse Rate 75 Pulse Rate [Radial] Respiratory Rate 22 16 17 Blood Pressure 70/40 Blood Pressure [Right Arm] O2 Sat by Pulse Oximetry 93 L Oxygen Delivery Method Nasal Cannula Oxygen Flow Rate 2 FIO2% 12/04/23 20:00 12/04/23 21:00 12/04/23 19:00 Temperature 98 F Pulse Rate 82 73 Pulse Rate [Radial] Respiratory Rate 25 H 21 Blood Pressure 122/60 136/59 Blood Pressure [Right Arm] O2 Sat by Pulse Oximetry 92 L 99 Oxygen Delivery Method Nasal Cannula Nasal Cannula Room Air Oxygen Flow Rate 2 2 2 FIO2% 12/04/23 18:01 12/04/23 18:01 12/04/23 18:01 Temperature Pulse Rate 76 Pulse Rate [Radial] Respiratory Rate 20 Blood Pressure 81/45 81/45 Blood Pressure [Right Arm] O2 Sat by Pulse Oximetry 94 L Oxygen Delivery Method Oxygen Flow Rate FIO2% 12/04/23 18:02 12/04/23 18:02 12/04/23 18:02 Temperature Pulse Rate 81 Pulse Rate [Radial] Respiratory Rate 25 H Blood Pressure 85/52 85/52 Blood Pressure [Right Arm] O2 Sat by Pulse Oximetry 93 L Oxygen Delivery Method Oxygen Flow Rate FIO2% 12/04/23 18:06 12/04/23 18:06 12/04/23 18:06 Temperature Pulse Rate 81 Pulse Rate [Radial] Respiratory Rate 19 Blood Pressure 87/50 87/50 Blood Pressure [Right Arm] O2 Sat by Pulse Oximetry 92 L Oxygen Delivery Method Oxygen Flow Rate FIO2% 12/04/23 18:17 12/04/23 18:17 12/04/23 18:30 Temperature Pulse Rate 87 74 Pulse Rate [Radial] Respiratory Rate 22 23 Blood Pressure 92/55 Blood Pressure [Right Arm] O2 Sat by Pulse Oximetry 91 L 93 L Oxygen Delivery Method Oxygen Flow Rate FIO2% 12/04/23 19:00 12/04/23 19:01 12/04/23 19:01 Temperature Pulse Rate 71 75 Pulse Rate [Radial] Respiratory Rate 16 17 Blood Pressure 70/40 Blood Pressure [Right Arm] O2 Sat by Pulse Oximetry 87 L 93 L Oxygen Delivery Method Oxygen Flow Rate FIO2% 12/04/23 19:02 12/04/23 19:02 12/04/23 19:30 Temperature Pulse Rate 79 68 Pulse Rate [Radial] Respiratory Rate 18 18 Blood Pressure 72/44 Blood Pressure [Right Arm] O2 Sat by Pulse Oximetry 94 L 95 Oxygen Delivery Method Oxygen Flow Rate FIO2% 12/04/23 20:00 12/04/23 20:01 12/04/23 20:01 Temperature Pulse Rate 81 82 Pulse Rate [Radial] Respiratory Rate 24 25 H Blood Pressure 122/60 Blood Pressure [Right Arm] O2 Sat by Pulse Oximetry 90 L 92 L Oxygen Delivery Method Oxygen Flow Rate FIO2% 12/04/23 20:30 12/04/23 21:00 12/04/23 21:01 Temperature Pulse Rate 83 71 73 Pulse Rate [Radial] Respiratory Rate 23 22 21 Blood Pressure Blood Pressure [Right Arm] O2 Sat by Pulse Oximetry 97 97 99 Oxygen Delivery Method Oxygen Flow Rate FIO2% 12/04/23 21:01 12/04/23 21:30 12/04/23 22:00 Temperature Pulse Rate 83 67 Pulse Rate [Radial] Respiratory Rate 22 20 Blood Pressure 136/59 Blood Pressure [Right Arm] O2 Sat by Pulse Oximetry 97 95 Oxygen Delivery Method Oxygen Flow Rate FIO2% 12/04/23 22:01 12/04/23 22:01 12/04/23 23:01 Temperature Pulse Rate 66 Pulse Rate [Radial] Respiratory Rate 19 Blood Pressure 87/43 81/41 Blood Pressure [Right Arm] O2 Sat by Pulse Oximetry 97 Oxygen Delivery Method Oxygen Flow Rate FIO2% 12/04/23 23:02 12/04/23 23:02 12/04/23 23:04 Temperature Pulse Rate 77 Pulse Rate [Radial] Respiratory Rate 22 Blood Pressure 83/53 89/52 Blood Pressure [Right Arm] O2 Sat by Pulse Oximetry 95 Oxygen Delivery Method Oxygen Flow Rate FIO2% 12/04/23 23:04 12/04/23 23:30 12/05/23 00:00 Temperature Pulse Rate 80 71 Pulse Rate [Radial] Respiratory Rate 27 H 19 Blood Pressure 92/46 Blood Pressure [Right Arm] O2 Sat by Pulse Oximetry 97 97 Oxygen Delivery Method Oxygen Flow Rate FIO2% 12/05/23 00:00 12/05/23 01:01 12/05/23 01:01 Temperature 98.6 F Pulse Rate 66 82 Pulse Rate [Radial] Respiratory Rate 19 22 Blood Pressure 166/74 Blood Pressure [Right Arm] O2 Sat by Pulse Oximetry 94 L 97 Oxygen Delivery Method Oxygen Flow Rate FIO2% 12/05/23 01:30 12/05/23 02:00 12/05/23 02:01 Temperature Pulse Rate 71 72 Pulse Rate [Radial] Respiratory Rate 21 23 Blood Pressure 91/46 Blood Pressure [Right Arm] O2 Sat by Pulse Oximetry 97 98 Oxygen Delivery Method Oxygen Flow Rate FIO2% 12/05/23 02:30 12/05/23 03:00 12/05/23 03:00 Temperature Pulse Rate 70 72 Pulse Rate [Radial] Respiratory Rate 23 20 Blood Pressure 98/49 Blood Pressure [Right Arm] O2 Sat by Pulse Oximetry 97 95 Oxygen Delivery Method Oxygen Flow Rate FIO2% 12/05/23 03:30 12/05/23 04:00 12/05/23 04:01 Temperature 98.5 F Pulse Rate 72 84 Pulse Rate [Radial] Respiratory Rate 20 23 Blood Pressure 95/73 Blood Pressure [Right Arm] O2 Sat by Pulse Oximetry 98 91 L Oxygen Delivery Method Oxygen Flow Rate FIO2% 12/05/23 04:30 12/05/23 05:04 12/05/23 05:04 Temperature Pulse Rate 69 70 Pulse Rate [Radial] Respiratory Rate 24 20 Blood Pressure 106/53 Blood Pressure [Right Arm] O2 Sat by Pulse Oximetry 98 96 Oxygen Delivery Method Oxygen Flow Rate FIO2% 12/04/23 20:40 12/05/23 05:30 12/05/23 05:59 Temperature Pulse Rate 71 75 Pulse Rate [Radial] Respiratory Rate 28 H 21 Blood Pressure Blood Pressure [Right Arm] O2 Sat by Pulse Oximetry 98 97 Oxygen Delivery Method Nasal Cannula Oxygen Flow Rate 2 FIO2% 12/05/23 06:00 12/05/23 07:00 12/05/23 08:23 Temperature Pulse Rate 78 Pulse Rate [Radial] Respiratory Rate 22 22 Blood Pressure 119/58 117/57 Blood Pressure [Right Arm] O2 Sat by Pulse Oximetry 99 Oxygen Delivery Method Oxygen Flow Rate FIO2% 12/05/23 08:11 12/05/23 09:00 12/05/23 09:03 Temperature 99.3 F Pulse Rate 90 68 Pulse Rate [Radial] Respiratory Rate 24 17 Blood Pressure 115/90 112/53 Blood Pressure [Right Arm] O2 Sat by Pulse Oximetry 97 94 L Oxygen Delivery Method Oxygen Flow Rate FIO2% 12/05/23 13:14 12/05/23 07:45 12/05/23 08:53 Temperature Pulse Rate Pulse Rate [Radial] Respiratory Rate 20 18 Blood Pressure Blood Pressure [Right Arm] O2 Sat by Pulse Oximetry Oxygen Delivery Method Nasal Cannula Oxygen Flow Rate 2 FIO2% 12/05/23 13:44 12/05/23 12:00 12/05/23 12:15 Temperature 99.5 F 99.3 F Pulse Rate Pulse Rate [Radial] 66 67 Respiratory Rate 17 17 17 Blood Pressure Blood Pressure [Right Arm] 84/47 113/56 O2 Sat by Pulse Oximetry 93 L 95 Oxygen Delivery Method Oxygen Flow Rate FIO2% 12/05/23 12:30 12/05/23 12:45 12/05/23 13:00 Temperature 99.3 F 98.3 F 98.3 F Pulse Rate Pulse Rate [Radial] 66 116 H 109 H Respiratory Rate 18 18 19 Blood Pressure Blood Pressure [Right Arm] 116/55 145/69 130/88 O2 Sat by Pulse Oximetry 96 94 L 93 L Oxygen Delivery Method Oxygen Flow Rate FIO2% 12/05/23 14:00 12/05/23 15:00 12/05/23 16:00 Temperature 98.2 F 98.3 F 99.0 F Pulse Rate Pulse Rate [Radial] 73 66 106 H Respiratory Rate 17 16 22 Blood Pressure Blood Pressure [Right Arm] 96/51 146/65 111/68 O2 Sat by Pulse Oximetry 98 98 95 Oxygen Delivery Method Oxygen Flow Rate FIO2% 12/05/23 17:17 12/05/23 17:00 12/05/23 19:00 Temperature 98.0 F Pulse Rate Pulse Rate [Radial] 113 H Respiratory Rate 22 20 Blood Pressure Blood Pressure [Right Arm] 134/74 O2 Sat by Pulse Oximetry 95 Oxygen Delivery Method Nasal Cannula Oxygen Flow Rate 2 FIO2% 12/05/23 20:36 12/05/23 20:36 12/05/23 20:00 Temperature 99.1 F Pulse Rate 80 110 H Pulse Rate [Radial] Respiratory Rate 20 Blood Pressure 91/55 Blood Pressure [Right Arm] O2 Sat by Pulse Oximetry 98 96 Oxygen Delivery Method Nasal Cannula Oxygen Flow Rate 2 2 FIO2% 28 12/06/23 00:02 12/06/23 00:00 12/06/23 04:00 Temperature 98.4 F 99.4 F Pulse Rate 96 H 118 H Pulse Rate [Radial] Respiratory Rate 18 20 21 Blood Pressure 92/51 138/85 Blood Pressure [Right Arm] O2 Sat by Pulse Oximetry 94 L 96 Oxygen Delivery Method Oxygen Flow Rate 2 2 FIO2% 12/06/23 07:00 12/06/23 08:00 12/06/23 08:50 Temperature 99 F Pulse Rate 114 H Pulse Rate [Radial] Respiratory Rate 22 Blood Pressure 136/69 Blood Pressure [Right Arm] O2 Sat by Pulse Oximetry 93 L Oxygen Delivery Method Nasal Cannula Nasal Cannula Nasal Cannula Oxygen Flow Rate 2 2 2 FIO2% 28 12/06/23 08:50 Temperature Pulse Rate 109 H Pulse Rate [Radial] Respiratory Rate Blood Pressure Blood Pressure [Right Arm] O2 Sat by Pulse Oximetry 95 Oxygen Delivery Method Oxygen Flow Rate FIO2% Labs: Laboratory Last Values WBC 9.4 X10^3/uL (3.6-10.0) 12/06/23 04:13 RBC 3.08 X10^6/uL (3.5-5.4) L 12/06/23 04:13 Hgb 10.0 g/dL (12.0-16.0) L 12/06/23 04:13 Hct 31.2 % (36.0-47.0) L 12/06/23 04:13 MCV 101.1 fL (80.0-100.0) H 12/06/23 04:13 MCH 32.6 pg (27.0-34.0) 12/06/23 04:13 MCHC 32.2 g/dL (33.0-35.0) L 12/06/23 04:13 RDW 19.1 % (11.6-16.5) H 12/06/23 04:13 Plt Count 261 X10^3/uL (150.0-450.0) 12/06/23 04:13 MPV 7.5 fL (7.4-11.0) 12/06/23 04:13 Neut % (Auto) 75.4 % (42.0-75.0) H 12/06/23 04:13 Lymph % (Auto) 18.3 % (21.0-51.0) L 12/06/23 04:13 [place] % (Auto) 5.1 % (0.0-13.0) 12/06/23 04:13 Eos % (Auto) 0.5 % (0.9-2.9) L 12/06/23 04:13 Baso % (Auto) 0.7 % (0.2-1.0) 12/06/23 04:13 Neut # (Auto) 7.1 x10^3/uL (2.2-4.8) H 12/06/23 04:13 Lymph # (Auto) 1.7 X10^3/uL (1.3-2.9) 12/06/23 04:13 [place] # (Auto) 0.5 x10^3/uL (0.3-0.8) 12/06/23 04:13 Eos # (Auto) 0.0 x10^3/uL (0.0-0.2) 12/06/23 04:13 Baso # (Auto) 0.1 X10^3/uL (0.0-0.1) 12/06/23 04:13 Absolute Nucleated RBC 0.0 /100WBC 12/06/23 04:13 Sodium 136 mmol/L (136-145) 12/06/23 04:13 Corrected Sodium 138 mmol/L (136-145) 12/06/23 04:13 Potassium 4.8 mmol/L (3.5-5.1) 12/06/23 04:13 Chloride 101 mmol/L (98-107) 12/06/23 04:13 Carbon Dioxide 30.2 mmol/L (21-32) 12/06/23 04:13 BUN 15 mg/dL (7-18) 12/06/23 04:13 Creatinine 1.31 mg/dL (0.55-1.02) H 12/06/23 04:13 Est GFR (MDRD) Af Amer 52 (>60) L 12/06/23 04:13 Est GFR (MDRD) Non-Af 43 (>60) L 12/06/23 04:13 Glucose 183 mg/dL (65-99) H 12/06/23 04:13 POC Glucose (mg/dL) 202 mg/dL (65-99) H 12/06/23 05:32 Calcium 9.6 mg/dL (8.5-10.1) 12/06/23 04:13 Corrected Calcium 10.2 mg/dL (8.5-10.1) H 12/04/23 12:30 Total Bilirubin 0.20 mg/dL (0.2-1.0) 12/04/23 12:30 AST 18 Units/L (15-37) 12/04/23 12:30 ALT 17 Units/L (12-78) 12/04/23 12:30 Alkaline Phosphatase 136 Units/L (46-116) H 12/04/23 12:30 Total Protein 7.5 g/dL (6.4-8.2) 12/04/23 12:30 Albumin 2.5 g/dL (3.4-5.0) L 12/04/23 12:30 Globulin 5.0 g/dL (2.5-4.5) H 12/04/23 12:30 Albumin/Globulin Ratio 0.5 Ratio (1.1-2.1) L 12/04/23 12:30 Blood Type O POSITIVE 12/05/23 04:10 Antibody Screen Negative 12/05/23 04:10 Reason For Visit: CRITICAL ISCHEMIA RIGHT FOOT Discharge Date Discharge Date: 12/06/23 Discharge Diagnosis All Active Problems (Updated 07/18/23 @ 22:00 by Valentin Villar) Decubitus ulcer, heel, right, unstageable (Acute) Cellulitis of left foot (Acute) Acute UTI (Acute) Altered mental status (Acute) Gangrene of toe of left foot (Acute) Atherosclerosis of [place] arteries of extremities with rest pain, right leg (Acute) Atherosclerosis of [place] arteries of extremities with rest pain, left leg (Acute) Personal history of cerebrovascular accident with current residual effects ( Acute) Chronic ischemic heart disease, unspecified (Acute) Essential (primary) hypertension (Acute) Osteomyelitis of second toe of right foot (Acute) Type 2 diabetes mellitus without complications (Acute) Depression (Acute) Plan of Treatment: Continue with present treatment and follow up plan. Pt is to keep follow up appointment as instructed and take medications as ordered. Discharge Medications Discharge Medications: No Known Allergies Allergy (Verified 12/04/23 11:08) CONTINUE taking the following medications Saccharomyces boulardii 250 mg capsule (Florastor) 250 mg PO BID DIARRHEA 12/04/23 [History] fluticasone 250 mcg-salmeterol 50 mcg/dose blistr powdr for inhalation 1 ea inhalation BID COPD 12/04/23 [History] olanzapine 10 mg tablet 10 mg PO HS PSYCHOSIS 12/04/23 [History] rivaroxaban 2.5 mg tablet (Xarelto) 2.5 mg PO BID 12/04/23 [History] lorazepam 0.5 mg tablet PO 12/05/23 [History] lorazepam 0.5 mg tablet PO 12/05/23 [History] lorazepam 0.5 mg tablet PO 12/05/23 [History] Discharge Disposition Assessment: see hospital summary Discharge Plan Discharge Plan Hospital Course: This is a 67 year old female currently resident of a skilled nurse facility who has had bilateral lower extremity arterfial interventions by me in the past. She was reported to have pallor and ischemia with rest pain of both legs, right greater than left but on her presentation she denied any significant problem with her left leg. 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 She was admitted and CT angiogram could be obtained because of her creatinien of 1.70. 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 She tolerated this well with stenting of the right external iliac artery and stenting of the right superficial femoral and popliteal arteries . She will be discharged on her usual medications She'll follow up with me in 2 weeks. We will observe the left leg to see if anything needs to be done. Most likely will repeat Doppler studies. Patient Disposition: 01 HOME, SELF-CARE Condition: Stable Health Concerns: Post Hospitalization: new medications and changes needed to prevent readmission or further decline. Pt educated and given instructions on all concerns. Care Plan Goals: see hospital course Plan of Treatment: Continue with present treatment and follow up plan. Pt is to keep follow up appointment as instructed and take medications as ordered. Assessment: see hospital summary Prescription drug monitoring program results: PDMP was not reviewed Prescriptions: Continued lorazepam 0.5 mg Tablet 0.5 mg PO Q6H PRN calamine Lotion 1 ea TOPICAL Q6H PRN Rx Instructions: apply to buttocks/noé area q6hrs prn irritation ferrous sulfate 325 mg (65 mg iron) Tablet 325 mg PO BID zinc 50 mg Tablet 50 mg PO DAILY nystatin 100,000 unit/gram Powder 1 applic TOPICAL TID Rx Instructions: apply to abdominal folds / perineal topically three times a day for yeast / irritation multivitamin,[id number]-FA-min Tablet 1 tab PO DAILY teriparatide 20 mcg/dose (600mcg/2.4mL) pen injector 20 mcg SUBCUT DAILY Patient Comments: [NO ORIGINAL SIG] ascorbic acid (vitamin C) 500 mg Capsule 500 mg PO DAILY doxycycline hyclate 100 mg capsule 100 mg PO BID Qty: 60 0RF Rx Instructions: Take 1 tab PO BID fluticasone propion-salmeterol 250-50 mcg/dose blister with device 1 ea inhalation BID Saccharomyces boulardii [Florastor] 250 mg Capsule 250 mg PO BID Xarelto 2.5 mg tablet 2.5 mg PO BID olanzapine 10 mg tablet 10 mg PO HS lorazepam 0.5 mg tablet PO lorazepam 0.5 mg tablet PO lorazepam 0.5 mg tablet PO atorvastatin 40 mg tablet 40 mg PO HS methocarbamol 500 mg tablet 500 mg PO HS clopidogrel 75 mg tablet 75 mg PO HS gabapentin 800 mg tablet 800 mg PO TID rivastigmine tartrate 4.5 mg capsule 6 mg PO BID lisinopril 2.5 mg tablet 2.5 mg PO QDAY metoprolol tartrate 25 mg tablet 12.5 mg PO HS duloxetine 30 mg capsule,delayed release(DR/EC) 30 mg PO DAILY Myrbetriq 50 mg tablet extended release 24 hr 50 mg PO QDAY Jardiance 25 mg tablet 25 mg PO QDAY aspirin 81 mg Tablet,Chewable 81 mg PO QDAY docusate sodium [Colace] 100 mg Capsule 100 mg PO BID diphenhydramine HCl 25 mg Capsule 25 mg PO Q8H PRN (Reason: Itching) oxycodone-acetaminophen 5-325 mg Tablet 1 tab PO Q6H PRN polyethylene glycol 3350 17 gram Powder In Packet 17 g PO DAILY calcium carbonate 600 mg calcium (1,500 mg) Tablet 600 mg PO BID melatonin 5 mg Tablet 10 mg PO HS insulin glargine 100 unit/mL Cartridge 20 unit SUBCUT QAM insulin glargine [Lantus Solostar U-100 Insulin] 100 unit/mL (3 mL) Insulin Pen 45 unit subcut BID insulin lispro 100 unit/mL Solution 1 sliding scale dose SUBCUT USEASDIRECTD Rx Instructions: per sliding scale cholecalciferol (vitamin D3) [Vitamin D3] 125 mcg (5,000 unit) Tablet 125 mcg PO QDAY Biofreeze (menthol) 4 % Gel 1 applic TOPICAL DAILY PRN fluticasone propion-salmeterol [Advair Diskus] 250-50 mcg/dose Blister With Device 1 inh INHALATION BID dextrose 40 % Gel 1 ea PO PRN PRN glucagon 1 mg Recon Soln 1 mg IM PRN PRN (Reason: Hypoglycemia) Rx Instructions: GIVE IF GLUCOSE LESS THAN 60. cyanocobalamin (vitamin B-12) 1,000 mcg/mL Kit 1,000 mcg IM MONTHLY Rx Instructions: GIVE THE 15TH OF EVERY MONTH. Follow ups/Referrals Follow ups/Referrals: RIVERA WALKER [Primary Care Provider] - 1 WEEK Instructions Instructions: Endovascular Therapy for Peripheral Vascular Disease: What to Know After Stand Alone Forms: Excuse From Work or School, Post Hospital Follow Up Care
[2023-12-06 12:24] VITALS: BP 124/59; PULSE 114; RESP 19; TEMP 99.2; O2SAT 92
[2023-12-06] MEDS ORDERED: PERCOCET TAB 5/325 MG PO PRN (15:23)
== END 2023-12-06 15:35 | DRG 254 ==
LOC: ICU → OBSVTOIN 10:58 → MED/SURG 12-05 16:46
PROVIDERS: ADMIT Surgery; ATTEND Surgery
DX: I10 Essential (primary) hypertension; I25.10 Atherosclerotic heart disease of native coronary artery without angina pectoris; E11.65 Type 2 diabetes mellitus with hyperglycemia; Z89.422 Acquired absence of other left toe(s); E78.2 Mixed hyperlipidemia; J44.9 Chronic obstructive pulmonary disease, unspecified; L89.159 Pressure ulcer of sacral region, unspecified stage; I70.223 Atherosclerosis of native arteries of extremities with rest pain, bilateral legs; L89.612 Pressure ulcer of right heel, stage 2; F32.A Depression, unspecified